=== PATIENT | male | born 1960 | race Caucasian/White ===

== ENCOUNTER 2016-09-09 13:00 | Inpatient (IN) | payer MEDICAID ==
[~2016-09-09] VITALS: Ht 177.8 cm; Wt 139.3 kg
[2016-09-09 14:36] LABS: Basophils # (auto) 0.1 uL; Basophils % (auto) 0.8 % (0.0-2.0); Eosinophils # (auto) 0.4 uL; Eosinophils % (auto) 3.6 % (0.0-7.0); Hematocrit 50.4 % (41.0-53.0); Hemoglobin 16.8 g/dL (13.5-17.5); Lymphocytes # (auto) 2.4 uL; Lymphocytes % (auto) 19.2 % (10.0-50.0); Mean Corpuscular Hemoglobin 28.7 pg (28.0-32.0); Mean Corpuscular Hgb Conc. 33.3 g/dL (32.0-36.0); Mean Corpuscular Volume 86.1 fL (80.0-100.0); Mean Platelet Volume 8.1 fL (7.4-10.4); Monocytes # (auto) 0.8 uL; Monocytes % (auto) 6.8 % (0.0-12.0); Neutrophils # (auto) 8.5 uL; Neutrophils % (auto) 69.6 % (37.0-80.0); Platelet Count (auto) 306 10^3/uL (140-450); Red Cell Distribution Width 13.5 % (11.6-16.0); White Blood Cell 12.3 10^3/uL (4.4-10.8)
[2016-09-09 14:48] LABS: Albumin 3.6 g/dL (3.4-5.0); Alkaline Phosphatase 74 U/L (45-117); Anion Gap 13 (5-15); Aspartate Aminotransferase 24 U/L (15-37); BUN/Creatinine Ratio 10.3; Bilirubin, Total 0.6 mg/dL (0.2-1.0); Blood Urea Nitrogen 12 mg/dL (7-18); Calcium 8.8 mg/dL (8.5-10.1); Carbon Dioxide 20 mmol/L (21-32); Chloride 110 mmol/L (98-107); GFR African American 84 mL/min; GFR Non-African American 69 mL/min; Glucose 84 mg/dL (74-106); Magnesium 2.4 mg/dL (1.6-2.6); Potassium 4.1 mmol/L (3.5-5.1); Sodium 143 mmol/L (136-145); Total Protein 7.5 g/dL (6.4-8.2)
[2016-09-09] MEDS ORDERED: IOHEXOL 350 MG/ML 100ML IJ ONE (15:59)
[2016-09-09] MEDS ORDERED: LORazepam 0.5 MG TAB PO PRN (16:45)
[2016-09-09] MEDS ORDERED: MORPHINE SULF INJ 2 MG/ML SYRINGE 1ML IV PRN ×2 (16:45)
[2016-09-09] MEDS ORDERED: TEMAZEPAM 15 MG CAP PO PRN (16:45)
[2016-09-09] MEDS ORDERED: ENOXAPARIN SOD 100 MG/1 ML SYRINGE SC ONE (16:45)
[2016-09-09] MEDS ORDERED: ACETAMINOPHEN 500 MG TAB PO PRN (16:45)
[2016-09-09] MEDS ORDERED: NITROGLYCERIN 0.4 MG SL TAB SL PRN (16:45)
[2016-09-09] MEDS ORDERED: PROMETHAZINE HCL 25 MG/ML 1ML IV PRN (16:45)
[2016-09-09] MEDS ORDERED: LACTULOSE 20Gm/30ML SOLN PO PRN (16:45)
[2016-09-09 17:01] LABS: B-Type Natriuretic Peptide 25.77 pg/mL (0-100)
[2016-09-09 17:10] LABS: Temperature: 22.9 C (20.0-25.0)
[2016-09-09 17:30] LABS: INR 1.12 (0.9-1.15); Partial Thromboplastin Time 27.5 sec (22.64-33.71); Prothrombin Time 11.5 sec (9.37-12.3)
[2016-09-09] MEDS: PANTOPRAZOLE 40 MG TAB PO SCH (17:37)
[2016-09-09] MEDS ORDERED: WARFARIN SODIUM 10 MG TAB PO ONE (18:45)
[2016-09-09] MEDS ORDERED: WARFARIN SODIUM 5 MG TAB PO ONE (18:45)
[2016-09-09] MEDS: ENOXAPARIN SOD 120 MG/0.8 ML SYRINGE SC SCH (21:32)
[2016-09-09] MEDS ORDERED: INFLUENZA QUAD 2016-2017 0.5 ML SYRG IM ONE (22:00)
[2016-09-09] MEDS ORDERED: PNEUMOCOCCAL VACC POLYS 25 MCG/0.5 ML VIAL IM ONE (22:00)
[2016-09-09 23:56] VITALS: BP 137/80
[2016-09-10 05:45] VITALS: BP 136/76
[2016-09-10 07:04] LABS: Basophils # (auto) 0.1 uL; Basophils % (auto) 0.7 % (0.0-2.0); Eosinophils # (auto) 0.4 uL; Eosinophils % (auto) 4.7 % (0.0-7.0); Hematocrit 44.3 % (41.0-53.0); Hemoglobin 14.7 g/dL (13.5-17.5); Lymphocytes # (auto) 2.2 uL; Lymphocytes % (auto) 23.7 % (10.0-50.0); Mean Corpuscular Hemoglobin 28.4 pg (28.0-32.0); Mean Corpuscular Hgb Conc. 33.3 g/dL (32.0-36.0); Mean Corpuscular Volume 85.3 fL (80.0-100.0); Mean Platelet Volume 8.1 fL (7.4-10.4); Monocytes # (auto) 0.7 uL; Monocytes % (auto) 7.4 % (0.0-12.0); Neutrophils % (auto) 63.5 % (37.0-80.0); Platelet Count (auto) 301 10^3/uL (140-450); Red Cell Distribution Width 13.3 % (11.6-16.0); White Blood Cell 9.4 10^3/uL (4.4-10.8)
[2016-09-10 07:11] LABS: INR 1.14 (0.9-1.15); Prothrombin Time 11.7 sec (9.37-12.3)
[2016-09-10 07:22] LABS: BUN/Creatinine Ratio 11.4; Calcium 8.3 mg/dL (8.5-10.1); Potassium 4.3 mmol/L (3.5-5.1)
[2016-09-10 08:58] VITALS: BP 147/78
[2016-09-10] MEDS: ENOXAPARIN SOD 120 MG/0.8 ML SYRINGE SC SCH ×2 (11:45→21:39)
[2016-09-10] MEDS: PANTOPRAZOLE 40 MG TAB PO SCH (11:46)
[2016-09-10] MEDS: HYDROcodone-ACET 5/325MG TAB PO PRN (11:46)
[2016-09-10 12:58] VITALS: BP 153/87
[2016-09-10 17:00] VITALS: BP 139/58
[2016-09-10] MEDS ORDERED: WARFARIN SODIUM 10 MG TAB PO ONE (17:00)
[2016-09-10 22:00] VITALS: BP 152/82
[2016-09-11 05:27] VITALS: BP 138/81
[2016-09-11 06:18] LABS: Basophils # (auto) 0.1 uL; Basophils % (auto) 0.6 % (0.0-2.0); Eosinophils # (auto) 0.5 uL; Eosinophils % (auto) 4.7 % (0.0-7.0); Hemoglobin 14.6 g/dL (13.5-17.5); Lymphocytes # (auto) 1.8 uL; Lymphocytes % (auto) 18.2 % (10.0-50.0); Mean Corpuscular Hemoglobin 28.3 pg (28.0-32.0); Mean Corpuscular Hgb Conc. 33.1 g/dL (32.0-36.0); Mean Corpuscular Volume 85.4 fL (80.0-100.0); Mean Platelet Volume 7.7 fL (7.4-10.4); Monocytes # (auto) 0.7 uL; Monocytes % (auto) 7.6 % (0.0-12.0); Neutrophils # (auto) 6.8 uL; Neutrophils % (auto) 68.9 % (37.0-80.0); Platelet Count (auto) 293 10^3/uL (140-450); Red Cell Distribution Width 13.3 % (11.6-16.0); White Blood Cell 9.8 10^3/uL (4.4-10.8)
[2016-09-11 06:36] LABS: Calcium 7.9 mg/dL (8.5-10.1)
[2016-09-11 06:40] LABS: Albumin 3.1 g/dL (3.4-5.0); BUN/Creatinine Ratio 13.6
[2016-09-11 06:42] LABS: Bilirubin, Total 0.4 mg/dL (0.2-1.0); Total Protein 6.5 g/dL (6.4-8.2)
[2016-09-11 06:46] LABS: Partial Thromboplastin Time 32.9 sec (22.64-33.71)
[2016-09-11 06:51] LABS: INR 1.23 (0.9-1.15); Prothrombin Time 12.7 sec (9.37-12.3)
[2016-09-11 09:00] VITALS: BP 114/70
[2016-09-11] MEDS: ENOXAPARIN SOD 120 MG/0.8 ML SYRINGE SC SCH ×2 (09:46→21:48)
[2016-09-11] MEDS: PANTOPRAZOLE 40 MG TAB PO SCH (09:46)
[2016-09-11 13:00] VITALS: BP 132/83
[2016-09-11 17:00] VITALS: BP 153/80
[2016-09-11] MEDS ORDERED: WARFARIN SODIUM 10 MG TAB PO ONE (17:00)
[2016-09-11] MEDS: HYDROcodone-ACET 5/325MG TAB PO PRN (18:15)
[2016-09-11 22:00] VITALS: BP 143/88
[2016-09-12 05:00] VITALS: BP 135/78
[2016-09-12 06:25] LABS: Partial Thromboplastin Time 37.1 sec (22.64-33.71)
[2016-09-12 06:41] LABS: INR 1.53 (0.9-1.15); Prothrombin Time 15.8 sec (9.37-12.3)
[2016-09-12 09:00] VITALS: BP 164/86
[2016-09-12] MEDS: PANTOPRAZOLE 40 MG TAB PO SCH (10:51)
[2016-09-12] MEDS: ENOXAPARIN SOD 120 MG/0.8 ML SYRINGE SC SCH (10:51)
[2016-09-12 11:28] VITALS: BP 127/80
[2016-09-12] MEDS ORDERED: WARFARIN SODIUM 2.5 MG TAB PO ONE (17:00)
== END 2016-09-12 13:00 | disposition home or self-care (01) | DRG 134 ==
LOC: ER 13:01 → TELE 13:02 → TELE-E-ADS 18:33 → TELE-EAST 19:24
PROVIDERS: ADMIT Internal Medicine; ATTEND Internal Medicine
DX: I26.99 Other pulmonary embolism without acute cor pulmonale (principal); I27.2 Other secondary pulmonary hypertension; Z68.41 Body mass index [BMI] 40.0-44.9, adult; E44.1 Mild protein-calorie malnutrition; E66.01 Morbid (severe) obesity due to excess calories; I82.432 Acute embolism and thrombosis of left popliteal vein; G47.30 Sleep apnea, unspecified; Z87.01 Personal history of pneumonia (recurrent); Z82.49 Family history of ischemic heart disease and other diseases of the circulatory system; Z83.3 Family history of diabetes mellitus; Z90.2 Acquired absence of lung [part of]; Z84.89 Family history of other specified conditions
CPT/HCPCS: 36415; 36600; 71020; 71275; 80048; 80053; 80061; 81241; 82805; 83735; 83880; 84484; 85025; 85379; 85610; 85613; 85670; 85705; 85730; 85732; 93005; 93971; 96372; 99291

== ENCOUNTER 2016-10-10 14:13 | Emergency (ER) | payer MEDICAID ==
[~2016-10-10] VITALS: Ht 177.8 cm; Wt 139.3 kg
[2016-10-10 15:02] LABS: Basophils # (auto) 0.1 uL; Basophils % (auto) 0.7 % (0.0-2.0); Eosinophils # (auto) 0.6 uL; Eosinophils % (auto) 6.3 % (0.0-7.0); Hematocrit 49.7 % (41.0-53.0); Hemoglobin 16.4 g/dL (13.5-17.5); Lymphocytes # (auto) 2.6 uL; Lymphocytes % (auto) 28.8 % (10.0-50.0); Mean Corpuscular Hemoglobin 28.2 pg (28.0-32.0); Mean Corpuscular Volume 85.3 fL (80.0-100.0); Mean Platelet Volume 7.7 fL (7.4-10.4); Monocytes # (auto) 0.7 uL; Monocytes % (auto) 7.3 % (0.0-12.0); Neutrophils # (auto) 5.2 uL; Neutrophils % (auto) 56.9 % (37.0-80.0); Platelet Count (auto) 339 10^3/uL (140-450); Red Cell Distribution Width 13.8 % (11.6-16.0); White Blood Cell 9.2 10^3/uL (4.4-10.8)
[2016-10-10 15:24] LABS: Albumin 3.8 g/dL (3.4-5.0); Anion Gap 8 (5-15); Aspartate Aminotransferase 24 U/L (15-37); BUN/Creatinine Ratio 12.5; Blood Urea Nitrogen 13 mg/dL (7-18); Calcium 8.8 mg/dL (8.5-10.1); Carbon Dioxide 27 mmol/L (21-32); Chloride 107 mmol/L (98-107); GFR African American 96 mL/min; GFR Non-African American 79 mL/min; Glucose 84 mg/dL (74-106); Potassium 4.4 mmol/L (3.5-5.1); Sodium 142 mmol/L (136-145)
[2016-10-10 15:30] LABS: Alkaline Phosphatase 64 U/L (45-117); Bilirubin, Total 0.5 mg/dL (0.2-1.0); Total Protein 7.5 g/dL (6.4-8.2)
[2016-10-10 16:00] LABS: Partial Thromboplastin Time 32.1 sec (22.64-33.71)
[2016-10-10 16:14] LABS: INR 1.48 (0.9-1.15)
[2016-10-10 20:20] LABS: Urine Bilirubin Negative (Negative); Urine Blood Negative /uL (Negative); Urine Color Yellow (Yellow); Urine Glucose Normal (Normal); Urine Ketone Negative (Negative); Urine Mucus FEW (None Seen); Urine Nitrite Negative (Negative); Urine RBC <1 /hpf (0 - 3); Urine Squamous Epithelial Cell FEW /hpf (<5); Urine Urobilinogen Normal (Negative)
[2016-10-11 00:20] VITALS: BP 137/95
[2016-10-11] MEDS ORDERED: WARFARIN SODIUM 5 MG TAB PO ONE ×2 (01:15→17:00)
== END 2016-10-11 01:08 | disposition home or self-care (01) ==
LOC: ER 14:13
DX: I82.402 Acute embolism and thrombosis of unspecified deep veins of left lower extremity (principal); R79.1 Abnormal coagulation profile; Z86.711 Personal history of pulmonary embolism; I10 Essential (primary) hypertension
CPT/HCPCS: 36415; 80053; 81001; 84484; 85025; 85379; 85610; 85730; 93970

== ENCOUNTER 2017-09-20 07:26 | Inpatient (IN) | payer MEDICAID ==
[~2017-09-20] VITALS: Ht 177.8 cm; Wt 150.0 kg
[2017-09-20 08:57] LABS: Basophils # (auto) 0.1 uL; Eosinophils # (auto) 0.3 uL; Eosinophils % (auto) 4.1 % (0.0-7.0); Hematocrit 46.7 % (41.0-53.0); Hemoglobin 15.3 g/dL (13.5-17.5); Lymphocytes # (auto) 1.7 uL; Lymphocytes % (auto) 21.4 % (10.0-50.0); Mean Corpuscular Hemoglobin 28.7 pg (28.0-32.0); Mean Corpuscular Hgb Conc. 32.8 g/dL (32.0-36.0); Mean Corpuscular Volume 87.7 fL (80.0-100.0); Monocytes # (auto) 0.4 uL; Monocytes % (auto) 5.7 % (0.0-12.0); Neutrophils # (auto) 5.2 uL; Neutrophils % (auto) 67.8 % (37.0-80.0); Platelet Count (auto) 304 10^3/uL (140-450); Red Blood Cells 5.33 10^6/uL (4.5-5.90); White Blood Cell 7.7 10^3/uL (4.4-10.8)
[2017-09-20 09:10] LABS: Partial Thromboplastin Time 28.2 sec (22.64-33.71); Prothrombin Time 10.9 sec (9.37-12.3)
[2017-09-20 09:20] LABS: Alanine Aminotransferase 27 U/L (16-61); Albumin 3.4 g/dL (3.4-5.0); Alkaline Phosphatase 56 U/L (45-117); Anion Gap 4 (5-15); Aspartate Aminotransferase 20 U/L (15-37); BUN/Creatinine Ratio 13.8; Bilirubin, Total 0.3 mg/dL (0.2-1.0); Blood Urea Nitrogen 15 mg/dL (7-18); Calcium 8.2 mg/dL (8.5-10.1); Carbon Dioxide 28 mmol/L (21-32); Chloride 110 mmol/L (98-107); GFR African American 90 mL/min; GFR Non-African American 75 mL/min; Glucose 109 mg/dL (74-106); Potassium 4.7 mmol/L (3.5-5.1); Sodium 142 mmol/L (136-145); Total Protein 6.7 g/dL (6.4-8.2)
[2017-09-20] MEDS ORDERED: ENOXAPARIN SOD 60 MG/0.6 ML SYRINGE SC ONE (11:00)
[2017-09-20] MEDS ORDERED: ONDANSETRON HCL 4 MG/2 ML VIAL IV ONE (11:15)
[2017-09-20] MEDS ORDERED: NALBUPHINE HCL 10 MG/1ml INJECTION IV ONE (11:15)
[2017-09-20] MEDS ORDERED: NITROGLYCERIN 0.4 MG SL TAB SL PRN (12:00)
[2017-09-20] MEDS ORDERED: MORPHINE SULFATE 4 MG/ML SYR/VIAL IV PRN ×2 (12:00)
[2017-09-20] MEDS ORDERED: DOCUSATE SOD 100 MG CAP PO PRN (12:00)
[2017-09-20] MEDS ORDERED: ENOXAPARIN SOD 80 MG/0.8ML SYRINGE SC ONE (12:00)
[2017-09-20] MEDS ORDERED: ONDANSETRON HCL 4 MG/2 ML VIAL IV PRN (12:00)
[2017-09-20] MEDS ORDERED: RIVAROXABAN 20 MG TAB PO SCH (12:15)
[2017-09-20] MEDS: ALBUTEROL SULF 2.5 MG/0.5ML(0.5%) NEB SOLN NEB SCH ×2 (12:25→19:03)
[2017-09-20] MEDS: FAMOTIDINE 20 MG TAB PO SCH ×2 (12:43→21:41)
[2017-09-20 12:47] VITALS: BP 155/76
[2017-09-20] MEDS ORDERED: RIVA20TA PO (13:21)
[2017-09-20] MEDS ORDERED: HYDR12.56 PO (13:21)
[2017-09-20] MEDS: SODIUM CHLOR 0.9% PF (SALINE LOCK) 10ML VIAL IV SCH ×2 (13:45→21:41)
[2017-09-20] MEDS ORDERED: HEPARIN IN NS 1000U/500ML (2UNIT/ML) 500 ML BAG/KIT IV SCH (14:30)
[2017-09-20] MEDS: HEPARIN DRIP/D5W 100UNITS/ML 250 ML IV SCH (16:44)
[2017-09-20] MEDS: HYDROcodone-ACET 5/325MG TAB PO PRN (16:49)
[2017-09-20 20:00] VITALS: BP 119/75
[2017-09-20 22:00] VITALS: BP 119/75
[2017-09-20] MEDS ORDERED: ENOXAPARIN SOD 150 MG/1 ML SYRINGE SC SCH (22:00)
[2017-09-20 22:12] LABS: INR 1.08 (0.9-1.15); Partial Thromboplastin Time 37.7 sec (22.64-33.71); Prothrombin Time 11.8 sec (9.37-12.3)
[2017-09-21] MEDS: ALBUTEROL SULF 2.5 MG/0.5ML(0.5%) NEB SOLN NEB SCH ×4 (00:46→19:11)
[2017-09-21] MEDS: HYDROcodone-ACET 5/325MG TAB PO PRN ×3 (01:01→15:23)
[2017-09-21 05:00] VITALS: BP 138/77
[2017-09-21] MEDS: SODIUM CHLOR 0.9% PF (SALINE LOCK) 10ML VIAL IV SCH ×3 (06:00→21:21)
[2017-09-21 07:12] LABS: Basophils # (auto) 0.1 uL; Basophils % (auto) 0.8 % (0.0-2.0); Eosinophils # (auto) 0.3 uL; Eosinophils % (auto) 3.4 % (0.0-7.0); Hematocrit 43.9 % (41.0-53.0); Hemoglobin 14.7 g/dL (13.5-17.5); Lymphocytes # (auto) 1.7 uL; Lymphocytes % (auto) 20.6 % (10.0-50.0); Mean Corpuscular Hemoglobin 29.5 pg (28.0-32.0); Mean Corpuscular Hgb Conc. 33.6 g/dL (32.0-36.0); Mean Corpuscular Volume 87.8 fL (80.0-100.0); Monocytes # (auto) 0.4 uL; Monocytes % (auto) 5.1 % (0.0-12.0); Neutrophils # (auto) 5.9 uL; Neutrophils % (auto) 70.1 % (37.0-80.0); Nucleated Red Blood Cells % 0.1 %; Platelet Count (auto) 292 10^3/uL (140-450); Red Cell Distribution Width 13.8 % (11.8-14.3); White Blood Cell 8.5 10^3/uL (4.4-10.8)
[2017-09-21 07:16] LABS: INR 1.04 (0.9-1.15); Prothrombin Time 11.3 sec (9.37-12.3)
[2017-09-21 07:23] LABS: Albumin 3.3 g/dL (3.4-5.0); BUN/Creatinine Ratio 14.3; Bilirubin, Total 0.8 mg/dL (0.2-1.0); Calcium 8.2 mg/dL (8.5-10.1); Potassium 4.2 mmol/L (3.5-5.1); Total Protein 6.6 g/dL (6.4-8.2)
[2017-09-21 08:39] VITALS: BP 102/68
[2017-09-21] MEDS ORDERED: PATIENTS OWN MEDICATION PO SCH (10:00)
[2017-09-21] MEDS: FAMOTIDINE 20 MG TAB PO SCH ×2 (10:09→21:21)
[2017-09-21] MEDS: HCTZ 25 MG TAB PO SCH (10:11)
[2017-09-21] MEDS: MULTIPLE VITAMIN TAB PO SCH (10:12)
[2017-09-21 13:04] VITALS: BP 135/79
[2017-09-21] MEDS: HEPARIN DRIP/D5W 100UNITS/ML 250 ML IV SCH ×2 (15:35→16:31)
[2017-09-21 15:36] LABS: INR 0.99 (0.9-1.15); Partial Thromboplastin Time 27.9 sec (22.64-33.71); Prothrombin Time 10.8 sec (9.37-12.3)
[2017-09-21] MEDS ORDERED: HEPARIN SODIUM (PORCINE) 5000 UNITS/ML 1ML VIAL IV ONE (16:15)
[2017-09-21 16:57] VITALS: BP 147/78
[2017-09-21 20:00] VITALS: BP 136/78
[2017-09-21 22:00] VITALS: BP 136/78
[2017-09-21 23:01] LABS: Partial Thromboplastin Time 40.1 sec (22.64-33.71); Prothrombin Time 10.9 sec (9.37-12.3)
[2017-09-21] MEDS ORDERED: SOTALOL HCL 80 MG TAB PO ONE (23:45)
[2017-09-21] MEDS ORDERED: SOTALOL HCL 80 MG TAB ONE (23:55)
[2017-09-22 06:00] VITALS: BP 111/80
[2017-09-22] MEDS: SODIUM CHLOR 0.9% PF (SALINE LOCK) 10ML VIAL IV SCH ×3 (06:38→21:29)
[2017-09-22] MEDS: ALBUTEROL SULF 2.5 MG/0.5ML(0.5%) NEB SOLN NEB SCH ×5 (06:49→23:43)
[2017-09-22 07:38] LABS: Basophils # (auto) 0.1 uL; Basophils % (auto) 0.8 % (0.0-2.0); Eosinophils # (auto) 0.3 uL; Eosinophils % (auto) 3.1 % (0.0-7.0); Hematocrit 47.5 % (41.0-53.0); Hemoglobin 16.1 g/dL (13.5-17.5); Lymphocytes # (auto) 1.7 uL; Mean Corpuscular Hemoglobin 29.8 pg (28.0-32.0); Mean Corpuscular Hgb Conc. 33.9 g/dL (32.0-36.0); Mean Corpuscular Volume 87.7 fL (80.0-100.0); Monocytes # (auto) 0.6 uL; Neutrophils % (auto) 72.1 % (37.0-80.0); Platelet Count (auto) 333 10^3/uL (140-450); Red Blood Cells 5.42 10^6/uL (4.5-5.90); Red Cell Distribution Width 14.1 % (11.8-14.3); White Blood Cell 9.6 10^3/uL (4.4-10.8)
[2017-09-22] MEDS: ENOXAPARIN SOD 100 MG/1 ML SYRINGE SC SCH ×2 (07:52→20:41)
[2017-09-22 07:53] LABS: INR 0.99 (0.9-1.15); Partial Thromboplastin Time 33.6 sec (22.64-33.71); Prothrombin Time 10.8 sec (9.37-12.3)
[2017-09-22] MEDS: ACETAMINOPHEN 325 MG TAB PO PRN ×4 (07:56→22:56)
[2017-09-22 08:10] LABS: Albumin 3.4 g/dL (3.4-5.0); BUN/Creatinine Ratio 11.5; Bilirubin, Total 0.7 mg/dL (0.2-1.0); Calcium 8.4 mg/dL (8.5-10.1); Potassium 4.8 mmol/L (3.5-5.1); Total Protein 6.9 g/dL (6.4-8.2)
[2017-09-22] MEDS ORDERED: HEPARIN SODIUM (PORCINE) 5000 UNITS/ML 1ML VIAL IV ONE (08:45)
[2017-09-22 09:00] VITALS: BP 102/54
[2017-09-22] MEDS: FAMOTIDINE 20 MG TAB PO SCH ×2 (09:10→21:29)
[2017-09-22] MEDS: SOTALOL HCL 80 MG TAB PO SCH ×2 (09:11→21:29)
[2017-09-22] MEDS: MULTIPLE VITAMIN TAB PO SCH (09:12)
[2017-09-22] MEDS: HCTZ 25 MG TAB PO SCH (09:12)
[2017-09-22] MEDS: HEPARIN DRIP/D5W 100UNITS/ML 250 ML IV SCH (09:19)
[2017-09-22 13:00] VITALS: BP 115/68
[2017-09-22 17:00] VITALS: BP 140/86
[2017-09-22 20:00] VITALS: BP 128/74
[2017-09-22 22:00] VITALS: BP 128/74
[2017-09-23] VITALS (7 sets, daily range): BP systolic 102–142; BP diastolic 56–78
[2017-09-23] MEDS: HEPARIN DRIP/D5W 100UNITS/ML 250 ML IV SCH ×3 (01:50→20:26)
[2017-09-23] MEDS: ACETAMINOPHEN 325 MG TAB PO PRN (03:24)
[2017-09-23 03:38] LABS: INR 1.02 (0.9-1.15); Prothrombin Time 11.1 sec (9.37-12.3)
[2017-09-23] MEDS: SODIUM CHLOR 0.9% PF (SALINE LOCK) 10ML VIAL IV SCH ×3 (06:10→22:09)
[2017-09-23] MEDS: ALBUTEROL SULF 2.5 MG/0.5ML(0.5%) NEB SOLN NEB SCH ×3 (07:09→20:09)
[2017-09-23] MEDS: HYDROcodone-ACET 5/325MG TAB PO PRN ×3 (07:57→18:18)
[2017-09-23] MEDS: SOTALOL HCL 80 MG TAB PO SCH ×2 (10:00→22:09)
[2017-09-23] MEDS: FAMOTIDINE 20 MG TAB PO SCH ×2 (10:17→22:10)
[2017-09-23] MEDS: MULTIPLE VITAMIN TAB PO SCH (10:18)
[2017-09-23] MEDS: HCTZ 25 MG TAB PO SCH (10:18)
[2017-09-24] VITALS (34 sets, daily range): BP systolic 109–193; BP diastolic 66–126
[2017-09-24] MEDS: HYDROcodone-ACET 5/325MG TAB PO PRN ×4 (03:12→17:42)
[2017-09-24 03:43] LABS: INR 1.02 (0.9-1.15); Partial Thromboplastin Time 49.7 sec (22.64-33.71); Prothrombin Time 11.1 sec (9.37-12.3)
[2017-09-24] MEDS: SODIUM CHLOR 0.9% PF (SALINE LOCK) 10ML VIAL IV SCH ×3 (05:39→22:02)
[2017-09-24] MEDS: HEPARIN DRIP/D5W 100UNITS/ML 250 ML IV SCH ×3 (06:01→19:52)
[2017-09-24] MEDS: ALBUTEROL SULF 2.5 MG/0.5ML(0.5%) NEB SOLN NEB SCH ×4 (06:27→22:06)
[2017-09-24] MEDS: SOTALOL HCL 80 MG TAB PO SCH ×2 (10:00→22:02)
[2017-09-24] MEDS: HCTZ 25 MG TAB PO SCH (10:17)
[2017-09-24] MEDS: FAMOTIDINE 20 MG TAB PO SCH ×2 (10:20→22:02)
[2017-09-24] MEDS: MULTIPLE VITAMIN TAB PO SCH (10:21)
[2017-09-24 15:12] LABS: INR 1.02 (0.9-1.15); Partial Thromboplastin Time 60.7 sec (22.64-33.71); Prothrombin Time 11.1 sec (9.37-12.3)
[2017-09-24] MEDS ORDERED: ALTEPLASE (RECOMBINANT) 100 MG in STERILE WATER 100 ML IV ONE (18:00)
[2017-09-24] MEDS: TEMAZEPAM 15 MG CAP PO PRN (22:06)
[2017-09-25] VITALS (48 sets, daily range): BP systolic 103–170; BP diastolic 51–109
[2017-09-25] MEDS: SODIUM CHLOR 0.9% PF (SALINE LOCK) 10ML VIAL IV SCH ×3 (03:59→22:17)
[2017-09-25] MEDS: HYDROcodone-ACET 5/325MG TAB PO PRN ×3 (04:29→20:24)
[2017-09-25 05:59] LABS: Basophils # (auto) 0.1 uL; Basophils % (auto) 0.6 % (0.0-2.0); Eosinophils # (auto) 0.7 uL; Hematocrit 50.4 % (41.0-53.0); Hemoglobin 16.7 g/dL (13.5-17.5); Lymphocytes # (auto) 2.6 uL; Lymphocytes % (auto) 27.1 % (10.0-50.0); Mean Corpuscular Hemoglobin 29.2 pg (28.0-32.0); Mean Corpuscular Hgb Conc. 33.1 g/dL (32.0-36.0); Mean Corpuscular Volume 88.3 fL (80.0-100.0); Monocytes # (auto) 0.7 uL; Monocytes % (auto) 7.2 % (0.0-12.0); Neutrophils # (auto) 5.7 uL; Neutrophils % (auto) 58.1 % (37.0-80.0); Nucleated Red Blood Cells % 0.2 %; Platelet Count (auto) 338 10^3/uL (140-450); Red Blood Cells 5.71 10^6/uL (4.5-5.90); Red Cell Distribution Width 13.9 % (11.8-14.3); White Blood Cell 9.8 10^3/uL (4.4-10.8)
[2017-09-25 06:05] LABS: INR 1.03 (0.9-1.15); Prothrombin Time 11.2 sec (9.37-12.3)
[2017-09-25] MEDS: ALBUTEROL SULF 2.5 MG/0.5ML(0.5%) NEB SOLN NEB SCH ×3 (06:06→18:45)
[2017-09-25 06:11] LABS: Potassium 4.3 mmol/L (3.5-5.1)
[2017-09-25 06:18] LABS: Albumin 3.6 g/dL (3.4-5.0); Calcium 9.3 mg/dL (8.5-10.1)
[2017-09-25 06:20] LABS: Bilirubin, Total 0.5 mg/dL (0.2-1.0); Total Protein 7.2 g/dL (6.4-8.2)
[2017-09-25] MEDS: HEPARIN DRIP/D5W 100UNITS/ML 250 ML IV SCH ×2 (08:48→20:16)
[2017-09-25] MEDS: FAMOTIDINE 20 MG TAB PO SCH ×2 (09:57→22:29)
[2017-09-25] MEDS: MULTIPLE VITAMIN TAB PO SCH (09:57)
[2017-09-25] MEDS: SOTALOL HCL 80 MG TAB PO SCH ×2 (09:59→22:32)
[2017-09-25] MEDS: HCTZ 25 MG TAB PO SCH (09:59)
[2017-09-25 10:48] LABS: INR 1.05 (0.9-1.15); Partial Thromboplastin Time 67.8 sec (22.64-33.71); Prothrombin Time 11.5 sec (9.37-12.3)
[2017-09-25 18:52] LABS: INR 1.05 (0.9-1.15); Partial Thromboplastin Time 57.7 sec (22.64-33.71); Prothrombin Time 11.4 sec (9.37-12.3)
[2017-09-25] MEDS: TEMAZEPAM 15 MG CAP PO PRN (22:30)
[2017-09-26] VITALS (22 sets, daily range): BP systolic 121–145; BP diastolic 44–108
[2017-09-26] MEDS: ACETAMINOPHEN 325 MG TAB PO PRN (04:09)
[2017-09-26 04:46] LABS: Basophils # (auto) 0.1 uL; Basophils % (auto) 1.1 % (0.0-2.0); Eosinophils # (auto) 0.8 uL; Eosinophils % (auto) 7.3 % (0.0-7.0); Hematocrit 49.9 % (41.0-53.0); Hemoglobin 16.6 g/dL (13.5-17.5); Lymphocytes # (auto) 2.8 uL; Lymphocytes % (auto) 26.4 % (10.0-50.0); Mean Corpuscular Hemoglobin 29.3 pg (28.0-32.0); Mean Corpuscular Hgb Conc. 33.3 g/dL (32.0-36.0); Mean Corpuscular Volume 87.9 fL (80.0-100.0); Monocytes # (auto) 0.7 uL; Monocytes % (auto) 6.7 % (0.0-12.0); Neutrophils # (auto) 6.3 uL; Neutrophils % (auto) 58.5 % (37.0-80.0); Nucleated Red Blood Cells % 0.1 %; Platelet Count (auto) 344 10^3/uL (140-450); Red Blood Cells 5.67 10^6/uL (4.5-5.90); Red Cell Distribution Width 13.9 % (11.8-14.3); White Blood Cell 10.7 10^3/uL (4.4-10.8)
[2017-09-26 04:53] LABS: Albumin 3.5 g/dL (3.4-5.0); BUN/Creatinine Ratio 18.3; Calcium 8.6 mg/dL (8.5-10.1); Potassium 4.3 mmol/L (3.5-5.1)
[2017-09-26 04:55] LABS: Bilirubin, Total 0.6 mg/dL (0.2-1.0); Total Protein 7.2 g/dL (6.4-8.2)
[2017-09-26 05:17] LABS: INR 1.03 (0.9-1.15); Prothrombin Time 11.2 sec (9.37-12.3)
[2017-09-26 05:27] LABS: Partial Thromboplastin Time 84.6 sec (22.64-33.71)
[2017-09-26] MEDS: SODIUM CHLOR 0.9% PF (SALINE LOCK) 10ML VIAL IV SCH (05:51)
[2017-09-26] MEDS: HEPARIN DRIP/D5W 100UNITS/ML 250 ML IV SCH (06:11)
[2017-09-26] MEDS: ALBUTEROL SULF 2.5 MG/0.5ML(0.5%) NEB SOLN NEB SCH ×2 (06:42)
[2017-09-26] MEDS: HYDROcodone-ACET 5/325MG TAB PO PRN (08:59)
[2017-09-26] MEDS: FAMOTIDINE 20 MG TAB PO SCH (10:00)
[2017-09-26] MEDS: SOTALOL HCL 80 MG TAB PO SCH (10:50)
[2017-09-26] MEDS: HCTZ 25 MG TAB PO SCH (10:51)
[2017-09-26] MEDS: MULTIPLE VITAMIN TAB PO SCH (10:51)
[2017-09-26 11:47] LABS: INR 1.02 (0.9-1.15); Partial Thromboplastin Time 38.2 sec (22.64-33.71); Prothrombin Time 11.1 sec (9.37-12.3)
[2017-09-26] MEDS ORDERED: RIVAROXABAN 20 MG TAB PO SCH (12:15)
== END 2017-09-26 13:00 | disposition home or self-care (01) | DRG 197 ==
LOC: ER 07:26 → TELE 07:27 → TELE-WESTW 15:30 → ICU WEST 09-24 17:34
PROVIDERS: ADMIT Internal Medicine; ATTEND Internal Medicine
DX: I82.B11 Acute embolism and thrombosis of right subclavian vein (principal); D68.59 Other primary thrombophilia; E83.51 Hypocalcemia; Z68.42 Body mass index [BMI] 45.0-49.9, adult; E66.9 Obesity, unspecified; I12.9 Hypertensive chronic kidney disease with stage 1 through stage 4 chronic kidney disease, or unspecified chronic kidney disease; N18.9 Chronic kidney disease, unspecified; I48.91 Unspecified atrial fibrillation; J45.909 Unspecified asthma, uncomplicated; M79.89 Other specified soft tissue disorders; R63.4 Abnormal weight loss; Z86.711 Personal history of pulmonary embolism; Z83.3 Family history of diabetes mellitus; Z86.718 Personal history of other venous thrombosis and embolism; Z87.01 Personal history of pneumonia (recurrent)
CPT/HCPCS: 36415; 71046; 80053; 83605; 83880; 84484; 85025; 85610; 85730; 87040; 87081; 93005; 93971; 94640; 94660; 94761; 96372; 96374; 96375; J2405

== ENCOUNTER 2018-09-03 06:58 | Emergency (ER) | payer MEDICAID ==
[~2018-09-03] VITALS: Ht 177.8 cm; Wt 138.8 kg
[~2018-09-03 06:58] MED LIST: HYDR12.56 PO; RIVA20TA PO
[2018-09-03 07:07] VITALS: BP 156/93
== END 2018-09-03 08:22 | disposition home or self-care (01) ==
LOC: ER 06:58
DX: S00.451A Superficial foreign body of right ear, initial encounter (principal); I10 Essential (primary) hypertension; X58.XXXA Exposure to other specified factors, initial encounter; Y93.89 Activity, other specified; Y99.8 Other external cause status; Y92.89 Other specified places as the place of occurrence of the external cause

== ENCOUNTER 2020-09-05 15:41 | Inpatient (IN) | payer MEDICAID ==
[~2020-09-05] VITALS: Ht 177.8 cm; Wt 130.8 kg
[2020-09-05] VITALS (7 sets, daily range): BP systolic 96–147; BP diastolic 49–78
[2020-09-05] MEDS ORDERED: dilTIAZem 25 MG/5 ML VIAL IV ONE (16:00)
[2020-09-05 16:23] LABS: Basophils # (auto) 0.1 10 ^3/uL (0-0.2); Basophils % (auto) 0.8 % (0.0-2.0); Eosinophils # (auto) 0.3 10 ^3/uL (0-0.8); Eosinophils % (auto) 2.4 % (0.0-7.0); Hematocrit 48.6 % (41.0-53.0); Hemoglobin 16.7 g/dL (13.5-17.5); Lymphocytes # (auto) 2.4 10 ^3/uL (0.4-5.4); Mean Corpuscular Hemoglobin 29.7 pg (28.0-32.0); Mean Corpuscular Hgb Conc. 34.4 g/dL (32.0-36.0); Mean Corpuscular Volume 86.3 fL (80.0-100.0); Monocytes # (auto) 0.7 10 ^3/uL (0-1.3); Monocytes % (auto) 7.1 % (0.0-12.0); Neutrophils % (auto) 66.7 % (37.0-80.0); Nucleated Red Blood Cells % 0.4 %; Red Blood Cells 5.63 10^6/uL (4.5-5.90); Red Cell Distribution Width 13.6 % (11.8-14.3); White Blood Cell 10.4 10^3/uL (4.4-10.8)
[2020-09-05 16:32] LABS: Albumin 3.7 g/dL (3.4-5.0); Calcium 8.8 mg/dL (8.5-10.1)
[2020-09-05 16:36] LABS: BUN/Creatinine Ratio 15.1; Bilirubin, Total 1.1 mg/dL (0.2-1.0); Total Protein 7.4 g/dL (6.4-8.2)
[2020-09-05 16:37] LABS: INR 1.23 (0.9-1.15); Partial Thromboplastin Time 29.2 sec (23.0-31.2)
[2020-09-05] MEDS ORDERED: NITROGLYCERIN 0.4 MG SL TAB SL PRN (17:30)
[2020-09-05] MEDS ORDERED: ACETAMINOPHEN 325 MG TAB PO PRN (17:30)
[2020-09-05] MEDS ORDERED: ONDANSETRON HCL 4 MG/2 ML VIAL IV PRN (17:30)
[2020-09-05] MEDS ORDERED: MORPHINE SULFATE INJECTION 2 MG/ML SYRG IV PRN ×2 (17:30)
[2020-09-05] MEDS ORDERED: PANTOPRAZOLE 40 MG/10 ML VIAL INJ IV ONE (17:45)
[2020-09-05] MEDS: HEPARIN DRIP/D5W 100UNITS/ML 250 ML IV SCH (19:00)
[2020-09-05] MEDS: METOPROLOL TARTRATE 25 MG TAB PO SCH (22:12)
[2020-09-06] VITALS (45 sets, daily range): BP systolic 96–138; BP diastolic 44–88
[2020-09-06] MEDS ORDERED: LISI-275 PO (01:14)
[2020-09-06] MEDS ORDERED: ATOR20TA PO (01:14)
[2020-09-06] MEDS ORDERED: METF-370 PO (01:14)
[2020-09-06 01:58] LABS: INR 1.15 (0.9-1.15)
[2020-09-06 05:44] LABS: Basophils # (auto) 0.1 10 ^3/uL (0-0.2); Basophils % (auto) 0.6 % (0.0-2.0); Eosinophils # (auto) 0.3 10 ^3/uL (0-0.8); Eosinophils % (auto) 3.8 % (0.0-7.0); Hematocrit 45.4 % (41.0-53.0); Hemoglobin 15.6 g/dL (13.5-17.5); Lymphocytes # (auto) 1.9 10 ^3/uL (0.4-5.4); Lymphocytes % (auto) 22.2 % (10.0-50.0); Mean Corpuscular Hemoglobin 29.8 pg (28.0-32.0); Mean Corpuscular Hgb Conc. 34.3 g/dL (32.0-36.0); Mean Corpuscular Volume 86.7 fL (80.0-100.0); Monocytes # (auto) 0.6 10 ^3/uL (0-1.3); Monocytes % (auto) 7.3 % (0.0-12.0); Neutrophils # (auto) 5.8 10 ^3/uL (1.6-8.6); Neutrophils % (auto) 66.1 % (37.0-80.0); Nucleated Red Blood Cells % 0.1 %; Red Blood Cells 5.24 10^6/uL (4.5-5.90); Red Cell Distribution Width 13.3 % (11.8-14.3); White Blood Cell 8.8 10^3/uL (4.4-10.8)
[2020-09-06 06:02] LABS: Calcium 8.3 mg/dL (8.5-10.1); Magnesium 2.3 mg/dL (1.6-2.6); Potassium 3.9 mmol/L (3.5-5.1)
[2020-09-06] MEDS: HEPARIN DRIP/D5W 100UNITS/ML 250 ML IV SCH ×2 (06:02→22:40)
[2020-09-06 06:05] LABS: BUN/Creatinine Ratio 16.5
[2020-09-06 06:07] LABS: INR 1.18 (0.9-1.15)
[2020-09-06 06:54] LABS: Partial Thromboplastin Time 99.1 sec (23.0-31.2)
[2020-09-06] MEDS: PANTOPRAZOLE 40 MG/10 ML VIAL INJ IV SCH (09:12)
[2020-09-06] MEDS: METOPROLOL TARTRATE 25 MG TAB PO SCH ×2 (09:13→22:00)
[2020-09-06] MEDS ORDERED: HYDROcodone-ACET 5/325MG TAB PO PRN (10:45)
[2020-09-06] MEDS ORDERED: DIGOXIN (250MCG/ML) 2 ML AMPULE IV ONE (12:00)
[2020-09-06 14:20] LABS: INR 1.13 (0.9-1.15); Partial Thromboplastin Time 66.1 sec (23.0-31.2)
[2020-09-06] MEDS ORDERED: IODIXANOL 320MG/ML 100ML BTL IV ONE (15:47)
[2020-09-06] MEDS ORDERED: LIDOCAINE 2%HCL (LOCAL ANESTH.) INJ 20ML MDV ONE (15:47)
[2020-09-06] MEDS ORDERED: HEPARIN IN NS 1000Units/500mL 0 ML ONE (15:47)
[2020-09-06] MEDS ORDERED: IOPAMIDOL 76 % (ISOVUE-370) 100ML BTL IV ONE (16:05)
[2020-09-06 20:23] LABS: INR 1.15 (0.9-1.15)
[2020-09-06 20:30] LABS: Partial Thromboplastin Time 79.7 sec (23.0-31.2)
[2020-09-07] VITALS (26 sets, daily range): BP systolic 114–153; BP diastolic 68–92
[2020-09-07 05:10] LABS: INR 1.1 (0.9-1.15); Partial Thromboplastin Time 60.6 sec (23.0-31.2)
[2020-09-07 06:42] LABS: Basophils # (auto) 0.1 10 ^3/uL (0-0.2); Basophils % (auto) 0.9 % (0.0-2.0); Eosinophils # (auto) 0.4 10 ^3/uL (0-0.8); Eosinophils % (auto) 5.3 % (0.0-7.0); Hematocrit 45.9 % (41.0-53.0); Hemoglobin 15.8 g/dL (13.5-17.5); Lymphocytes # (auto) 1.8 10 ^3/uL (0.4-5.4); Mean Corpuscular Hemoglobin 29.9 pg (28.0-32.0); Mean Corpuscular Hgb Conc. 34.4 g/dL (32.0-36.0); Mean Corpuscular Volume 86.7 fL (80.0-100.0); Monocytes # (auto) 0.5 10 ^3/uL (0-1.3); Monocytes % (auto) 7.3 % (0.0-12.0); Neutrophils # (auto) 4.4 10 ^3/uL (1.6-8.6); Neutrophils % (auto) 61.5 % (37.0-80.0); Nucleated Red Blood Cells % 0.1 %; Red Blood Cells 5.29 10^6/uL (4.5-5.90); Red Cell Distribution Width 13.3 % (11.8-14.3); White Blood Cell 7.1 10^3/uL (4.4-10.8)
[2020-09-07 06:53] LABS: BUN/Creatinine Ratio 16.4; Calcium 8.4 mg/dL (8.5-10.1); Magnesium 2.5 mg/dL (1.6-2.6); Potassium 4.2 mmol/L (3.5-5.1)
[2020-09-07] MEDS: METOPROLOL TARTRATE 25 MG TAB PO SCH ×2 (10:00→21:23)
[2020-09-07] MEDS: PANTOPRAZOLE 40 MG/10 ML VIAL INJ IV SCH (10:00)
[2020-09-07] MEDS: ATORVASTATIN 20 MG TAB PO SCH (10:00)
[2020-09-07] MEDS: HYDROcodone-ACET 5/325MG TAB PO PRN ×2 (11:44→19:14)
[2020-09-07 12:01] LABS: INR 1.11 (0.9-1.15); Partial Thromboplastin Time 54.4 sec (23.0-31.2)
[2020-09-07] MEDS: HEPARIN DRIP/D5W 100UNITS/ML 250 ML IV SCH ×2 (13:19→20:34)
[2020-09-07] MEDS ORDERED: WARFARIN SODIUM 10 MG TAB PO ONE (17:00)
[2020-09-07 19:24] LABS: INR 1.09 (0.9-1.15); Partial Thromboplastin Time 49.2 sec (23.0-31.2)
[2020-09-08 01:39] LABS: INR 1.08 (0.9-1.15); Partial Thromboplastin Time 63.2 sec (23.0-31.2)
[2020-09-08 05:00] VITALS: BP 117/81
[2020-09-08] MEDS: HEPARIN DRIP/D5W 100UNITS/ML 250 ML IV SCH (06:39)
[2020-09-08] MEDS: HYDROcodone-ACET 5/325MG TAB PO PRN (06:48)
[2020-09-08 07:05] LABS: Basophils # (auto) 0.1 10 ^3/uL (0-0.2); Basophils % (auto) 0.8 % (0.0-2.0); Eosinophils # (auto) 0.4 10 ^3/uL (0-0.8); Eosinophils % (auto) 4.9 % (0.0-7.0); Hematocrit 46.8 % (41.0-53.0); Hemoglobin 15.9 g/dL (13.5-17.5); Lymphocytes # (auto) 1.8 10 ^3/uL (0.4-5.4); Lymphocytes % (auto) 23.3 % (10.0-50.0); Mean Corpuscular Hemoglobin 29.7 pg (28.0-32.0); Mean Corpuscular Hgb Conc. 34.1 g/dL (32.0-36.0); Mean Corpuscular Volume 87.3 fL (80.0-100.0); Monocytes # (auto) 0.5 10 ^3/uL (0-1.3); Monocytes % (auto) 6.7 % (0.0-12.0); Neutrophils # (auto) 4.8 10 ^3/uL (1.6-8.6); Neutrophils % (auto) 64.3 % (37.0-80.0); Nucleated Red Blood Cells % 0.2 %; Red Blood Cells 5.36 10^6/uL (4.5-5.90); Red Cell Distribution Width 13.5 % (11.8-14.3); White Blood Cell 7.5 10^3/uL (4.4-10.8)
[2020-09-08 07:13] LABS: INR 1.13 (0.9-1.15)
[2020-09-08 08:23] LABS: Calcium 8.3 mg/dL (8.5-10.1); Magnesium 2.3 mg/dL (1.6-2.6); Potassium 4.5 mmol/L (3.5-5.1)
[2020-09-08 08:30] VITALS: BP 141/73
[2020-09-08] MEDS: PANTOPRAZOLE 40 MG/10 ML VIAL INJ IV SCH (10:26)
[2020-09-08] MEDS: ATORVASTATIN 20 MG TAB PO SCH (10:26)
[2020-09-08] MEDS: METOPROLOL TARTRATE 25 MG TAB PO SCH (10:27)
[2020-09-08 12:30] VITALS: BP 112/69
[2020-09-08 14:10] LABS: INR 1.13 (0.9-1.15)
[2020-09-08 14:15] LABS: Partial Thromboplastin Time 74.6 sec (23.0-31.2)
[2020-09-08 16:19] VITALS: BP 141/73
[2020-09-08] MEDS ORDERED: WARFARIN SODIUM 10 MG TAB PO ONE (17:00)
== END 2020-09-08 17:10 | disposition home or self-care (01) | DRG 197 ==
LOC: ER 15:41 → TELE 17:39 → DOU IN ICU 20:40 → ICU CENTRL 20:41 → DOU IN ICU 21:21 → TELE-WESTW 09-07 19:00
PROVIDERS: ADMIT Internal Medicine; ATTEND Internal Medicine
PROC: 5A09357 Assistance with Respiratory Ventilation, Less than 24 Consecutive Hours, Continuous Positive Airway Pressure (ICD-10-PCS; principal; 2020-09-06)
PROC: 5A09357 Assistance with Respiratory Ventilation, Less than 24 Consecutive Hours, Continuous Positive Airway Pressure (ICD-10-PCS; 2020-09-07)
DX: I82.432 Acute embolism and thrombosis of left popliteal vein (principal); K92.2 Gastrointestinal hemorrhage, unspecified; N17.9 Acute kidney failure, unspecified; E11.22 Type 2 diabetes mellitus with diabetic chronic kidney disease; E66.01 Morbid (severe) obesity due to excess calories; E78.5 Hyperlipidemia, unspecified; I13.0 Hypertensive heart and chronic kidney disease with heart failure and stage 1 through stage 4 chronic kidney disease, or unspecified chronic kidney disease; I25.10 Atherosclerotic heart disease of native coronary artery without angina pectoris; I48.20 Chronic atrial fibrillation, unspecified; I50.9 Heart failure, unspecified; J45.909 Unspecified asthma, uncomplicated; Z20.822 Contact with and (suspected) exposure to COVID-19; N18.9 Chronic kidney disease, unspecified; Z68.41 Body mass index [BMI] 40.0-44.9, adult; Z79.01 Long term (current) use of anticoagulants; Z82.49 Family history of ischemic heart disease and other diseases of the circulatory system; Z86.711 Personal history of pulmonary embolism; Z83.3 Family history of diabetes mellitus; Z86.718 Personal history of other venous thrombosis and embolism; Z71.3 Dietary counseling and surveillance
CPT/HCPCS: 36415; 71045; 71275; 80048; 80053; 83735; 83880; 85025; 85610; 85730; 87081; 87426; 93005; 93970; 94660; 96365; 96375; C9113; G0378; Q9967

== ENCOUNTER 2020-09-10 06:46 | Inpatient (IN) | payer MEDICAID ==
[~2020-09-10] VITALS: Ht 170.2 cm; Wt 137.9 kg
[~2020-09-10 06:46] MED LIST changes: +ATOR20TA PO; +LISI-275 PO; +METF-370 PO; -RIVA20TA PO
[2020-09-10] MEDS ORDERED: HYDROmorphone HCL 2 MG/ML VL IV ONE (07:00)
[2020-09-10] MEDS ORDERED: ONDANSETRON HCL 4 MG/2 ML VIAL IV ONE (07:00)
[2020-09-10 07:30] LABS: Basophils # (auto) 0 10 ^3/uL (0-0.2); Basophils % (auto) 0.3 % (0.0-2.0); Eosinophils # (auto) 0.1 10 ^3/uL (0-0.8); Eosinophils % (auto) 0.5 % (0.0-7.0); Hematocrit 49.1 % (41.0-53.0); Hemoglobin 16.7 g/dL (13.5-17.5); Lymphocytes # (auto) 1.1 10 ^3/uL (0.4-5.4); Lymphocytes % (auto) 8.8 % (10.0-50.0); Mean Corpuscular Hemoglobin 29.3 pg (28.0-32.0); Mean Corpuscular Volume 86.3 fL (80.0-100.0); Monocytes # (auto) 0.5 10 ^3/uL (0-1.3); Monocytes % (auto) 4.3 % (0.0-12.0); Neutrophils # (auto) 10.7 10 ^3/uL (1.6-8.6); Neutrophils % (auto) 86.1 % (37.0-80.0); Nucleated Red Blood Cells % 0.2 %; Platelet Count (auto) 272 10^3/uL (140-450); Red Blood Cells 5.69 10^6/uL (4.5-5.90); Red Cell Distribution Width 13.5 % (11.8-14.3); White Blood Cell 12.4 10^3/uL (4.4-10.8)
[2020-09-10 07:47] LABS: Albumin 3.4 g/dL (3.4-5.0); Anion Gap 9 (5-15); Blood Urea Nitrogen 22 mg/dL (7-18); Carbon Dioxide 17 mmol/L (21-32); Chloride 110 mmol/L (98-107); Glucose 120 mg/dL (74-106); INR 1.66 (0.9-1.15); Potassium 4.2 mmol/L (3.5-5.1); Sodium 136 mmol/L (136-145)
[2020-09-10 07:50] LABS: Alanine Aminotransferase 62 U/L (16-61); Alkaline Phosphatase 65 U/L (45-117); Aspartate Aminotransferase 52 U/L (15-37); BUN/Creatinine Ratio 22.2; Bilirubin, Total 0.6 mg/dL (0.2-1.0); GFR African American 100 mL/min; GFR Non-African American 83 mL/min
[2020-09-10] MEDS ORDERED: AMIODARONE HCL 150 MG in D5W 5% 100 ML IV ONE (11:00)
[2020-09-10] MEDS ORDERED: AMIODARONE HCL (50 MG/ ML) 3 ML VIAL IV ONE (11:11)
[2020-09-10] MEDS ORDERED: AMIODARONE 450mg/250ml AE 250 ML IV ONE (11:15)
[2020-09-10] MEDS ORDERED: NITROGLYCERIN 0.4 MG SL TAB SL PRN (11:45)
[2020-09-10] MEDS ORDERED: TEMAZEPAM 15 MG CAP PO PRN (11:45)
[2020-09-10] MEDS ORDERED: MORPHINE SULF INJ 2 MG/ML SYRINGE 1ML IV PRN (11:45)
[2020-09-10] MEDS ORDERED: cefTRIAXone 1GM/50ML D5W 50 ML IV ONE (11:45)
[2020-09-10] MEDS ORDERED: ACETAMINOPHEN 325 MG TAB PO PRN (11:45)
[2020-09-10] MEDS ORDERED: SODIUM CHLORIDE 0.9% 1,000 ML IV SCH (11:45)
[2020-09-10] MEDS ORDERED: DOCUSATE SOD 100 MG CAP PO PRN (11:45)
[2020-09-10] MEDS ORDERED: ONDANSETRON HCL 4 MG/2 ML VIAL IV PRN (11:45)
[2020-09-10] MEDS: AMIODARONE 450mg/250ml AE 250 ML IV SCH ×2 (11:57→12:07)
[2020-09-10] MEDS ORDERED: AMIODARONE HCL 200 MG TAB PO ONE (14:00)
[2020-09-10] MEDS ORDERED: MECLIZINE HCL 25 MG TAB PO ONE (14:45)
[2020-09-10] MEDS ORDERED: IOPAMIDOL 76 % (ISOVUE-370) 100ML BTL IV ONE ×3 (16:13→20:51)
[2020-09-10] MEDS ORDERED: WARFARIN SODIUM 5 MG TAB PO SCH (17:00)
[2020-09-10] MEDS ORDERED: WARFARIN SODIUM 10 MG TAB PO ONE (17:00)
[2020-09-10 17:13] LABS: Urine Bacteria NONE SEEN /hpf (None Seen); Urine Blood Negative /uL (Negative); Urine Mucus FEW (None Seen); Urine Specific Gravity 1.027 (1.001-1.035); Urine WBC 3 /hpf (0 - 3)
[2020-09-10 21:05] LABS: Cholesterol 126 mg/dL (< 200)
[2020-09-10 21:08] LABS: HDL Cholesterol 38 mg/dL (40-59); LDL Cholesterol 76 mg/dL (< 100); Triglycerides 80 mg/dL (< 150)
[2020-09-10] MEDS: MECLIZINE HCL 25 MG TAB PO SCH (21:32)
[2020-09-10] MEDS: FAMOTIDINE 20 MG TAB PO SCH (21:32)
[2020-09-10] MEDS ORDERED: ASCORBIC ACID 500 MG TAB PO SCH (22:00)
[2020-09-10] MEDS ORDERED: ATORVASTATIN 20 MG TAB PO SCH (22:00)
[2020-09-11] VITALS (7 sets, daily range): BP systolic 93–115; BP diastolic 50–86
[2020-09-11 06:11] LABS: Basophils # (auto) 0 10 ^3/uL (0-0.2); Basophils % (auto) 0.3 % (0.0-2.0); Eosinophils # (auto) 0.3 10 ^3/uL (0-0.8); Eosinophils % (auto) 2.5 % (0.0-7.0); Hematocrit 46.7 % (41.0-53.0); Hemoglobin 16.3 g/dL (13.5-17.5); Lymphocytes # (auto) 1.8 10 ^3/uL (0.4-5.4); Lymphocytes % (auto) 17.1 % (10.0-50.0); Mean Corpuscular Hemoglobin 30.1 pg (28.0-32.0); Mean Corpuscular Hgb Conc. 34.9 g/dL (32.0-36.0); Mean Corpuscular Volume 86.3 fL (80.0-100.0); Monocytes # (auto) 0.7 10 ^3/uL (0-1.3); Neutrophils # (auto) 7.7 10 ^3/uL (1.6-8.6); Neutrophils % (auto) 73.1 % (37.0-80.0); Nucleated Red Blood Cells % 0.1 %; Platelet Count (auto) 235 10^3/uL (140-450); Red Blood Cells 5.42 10^6/uL (4.5-5.90); Red Cell Distribution Width 13.1 % (11.8-14.3); White Blood Cell 10.5 10^3/uL (4.4-10.8)
[2020-09-11 06:24] LABS: Potassium 4.4 mmol/L (3.5-5.1)
[2020-09-11 06:27] LABS: INR 2.18 (0.9-1.15)
[2020-09-11 06:36] LABS: Albumin 3.2 g/dL (3.4-5.0); BUN/Creatinine Ratio 16.7; Bilirubin, Total 0.7 mg/dL (0.2-1.0); Calcium 8.5 mg/dL (8.5-10.1); Total Protein 6.4 g/dL (6.4-8.2)
[2020-09-11] MEDS: MECLIZINE HCL 25 MG TAB PO SCH (06:39)
[2020-09-11] MEDS ORDERED: DEXTROSE (50%) 50ML SYRG IV PRN (06:45)
[2020-09-11] MEDS: InsuLIN REG 1unit/0.01ml Soln (100units/ml) SC SCH ×2 (06:49→11:30)
[2020-09-11] MEDS: ACCU-CHEK COMFORT CURVE STRIP VI SCH ×2 (06:49→11:48)
[2020-09-11] MEDS ORDERED: MECLIZINE HCL 25 MG TAB PO PRN (08:45)
[2020-09-11] MEDS: FAMOTIDINE 20 MG TAB PO SCH (09:50)
[2020-09-11] MEDS ORDERED: ENOXAPARIN SOD 40 MG/0.4 ML SYRINGE SC SCH (10:00)
[2020-09-11] MEDS ORDERED: AMIODARONE HCL 200 MG TAB PO SCH (10:00)
[2020-09-11] MEDS ORDERED: ZINC SULFATE 220mg CAP or TAB PO SCH (10:00)
[2020-09-11] MEDS ORDERED: ENOXAPARIN SOD 30 MG/0.3 ML SYRINGE SC SCH (10:00)
[2020-09-11] MEDS ORDERED: MULTIPLE VITAMIN TAB PO SCH (10:00)
[2020-09-11] MEDS ORDERED: MECL25TA18 PO (11:08)
[2020-09-11] MEDS ORDERED: MET50T PO (11:08)
[2020-09-11] MEDS ORDERED: WARF5TAB71 PO (11:08)
[2020-09-11] MEDS ORDERED: WARFARIN SODIUM 5 MG TAB PO SCH (17:00)
== END 2020-09-11 16:30 | disposition home or self-care (01) | DRG 45 ==
LOC: EDBD 06:46 → ER 06:46 → TELE 06:47 → TELE-CENTR 23:51
PROVIDERS: ADMIT Hospitalist; ATTEND Hospitalist
DX: I63.89 Other cerebral infarction (principal); E66.01 Morbid (severe) obesity due to excess calories; I82.402 Acute embolism and thrombosis of unspecified deep veins of left lower extremity; Z68.41 Body mass index [BMI] 40.0-44.9, adult; R06.03 Acute respiratory distress; Z20.822 Contact with and (suspected) exposure to COVID-19; E11.9 Type 2 diabetes mellitus without complications; E78.5 Hyperlipidemia, unspecified; I48.20 Chronic atrial fibrillation, unspecified; J45.909 Unspecified asthma, uncomplicated; Z79.899 Other long term (current) drug therapy; Z82.49 Family history of ischemic heart disease and other diseases of the circulatory system; Z83.3 Family history of diabetes mellitus; Z86.711 Personal history of pulmonary embolism; R42 Dizziness and giddiness
CPT/HCPCS: 36415; 70450; 70551; 71045; 80053; 80061; 81001; 82962; 83880; 84484; 85025; 85379; 85610; 85730; 87081; 87426; 93005; 93306; 93886; G0378; J0696; J2405; J7060

== ENCOUNTER 2020-09-17 14:03 | Inpatient (IN) | payer MEDICAID ==
[~2020-09-17] VITALS: Ht 177.8 cm; Wt 133.0 kg
[~2020-09-17 14:03] MED LIST changes: -HYDR12.56 PO; +MECL25TA18 PO; +MET50T PO; +WARF5TAB71 PO
[2020-09-17] MEDS ORDERED: ONDANSETRON HCL 4 MG/2 ML VIAL IV ONE (14:15)
[2020-09-17] MEDS ORDERED: MORPHINE SULFATE 4 MG/ML SYR/VIAL IV ONE (14:15)
[2020-09-17 15:08] LABS: Basophils # (auto) 0.1 10 ^3/uL (0-0.2); Basophils % (auto) 0.9 % (0.0-2.0); Eosinophils # (auto) 0.5 10 ^3/uL (0-0.8); Eosinophils % (auto) 5.4 % (0.0-7.0); Hematocrit 49.1 % (41.0-53.0); Hemoglobin 16.7 g/dL (13.5-17.5); Lymphocytes # (auto) 2.2 10 ^3/uL (0.4-5.4); Lymphocytes % (auto) 24.5 % (10.0-50.0); Mean Corpuscular Hemoglobin 29.5 pg (28.0-32.0); Mean Corpuscular Hgb Conc. 33.9 g/dL (32.0-36.0); Mean Corpuscular Volume 86.9 fL (80.0-100.0); Monocytes # (auto) 0.8 10 ^3/uL (0-1.3); Monocytes % (auto) 8.4 % (0.0-12.0); Neutrophils # (auto) 5.5 10 ^3/uL (1.6-8.6); Neutrophils % (auto) 60.8 % (37.0-80.0); Nucleated Red Blood Cells % 0.2 %; Platelet Count (auto) 328 10^3/uL (140-450); Red Blood Cells 5.65 10^6/uL (4.5-5.90); Red Cell Distribution Width 13.4 % (11.8-14.3)
[2020-09-17 15:18] LABS: INR 1.55 (0.9-1.15); Partial Thromboplastin Time 32.1 sec (23.0-31.2)
[2020-09-17 15:20] LABS: Calcium 8.2 mg/dL (8.5-10.1); Chloride 112 mmol/L (98-107); Potassium 4.4 mmol/L (3.5-5.1); Sodium 142 mmol/L (136-145)
[2020-09-17 15:22] LABS: Alanine Aminotransferase 26 U/L (16-61); Anion Gap 11 (5-15); Aspartate Aminotransferase 15 U/L (15-37); BUN/Creatinine Ratio 16.8; Blood Urea Nitrogen 18 mg/dL (7-18); Carbon Dioxide 19 mmol/L (21-32); GFR African American 91 mL/min; GFR Non-African American 75 mL/min; Glucose 102 mg/dL (74-106)
[2020-09-17 15:28] LABS: Alkaline Phosphatase 77 U/L (45-117); Bilirubin, Total 0.4 mg/dL (0.2-1.0); Total Protein 6.5 g/dL (6.4-8.2)
[2020-09-17] MEDS ORDERED: NITROGLYCERIN 0.4 MG SL TAB SL PRN (22:15)
[2020-09-17] MEDS ORDERED: MORPHINE SULF INJ 2 MG/ML SYRINGE 1ML IV PRN (22:15)
[2020-09-17] MEDS ORDERED: DEXTROSE (50%) 50ML SYRG IV PRN (22:15)
[2020-09-17] MEDS ORDERED: dilTIAZem 25 MG/5 ML VIAL IV ONE (22:15)
[2020-09-18] MEDS: SODIUM CHLORIDE 0.9% 1,000 ML IV SCH (00:07)
[2020-09-18] MEDS: HYDROcodone-ACET 5/325MG TAB PO PRN ×3 (02:38→20:35)
[2020-09-18 03:20] VITALS: BP 124/69
[2020-09-18 05:21] VITALS: BP 124/69
[2020-09-18 06:04] LABS: Basophils # (auto) 0.1 10 ^3/uL (0-0.2); Basophils % (auto) 0.9 % (0.0-2.0); Eosinophils # (auto) 0.4 10 ^3/uL (0-0.8); Eosinophils % (auto) 3.8 % (0.0-7.0); Hematocrit 46.7 % (41.0-53.0); Hemoglobin 16.1 g/dL (13.5-17.5); Lymphocytes # (auto) 2.2 10 ^3/uL (0.4-5.4); Lymphocytes % (auto) 22.3 % (10.0-50.0); Mean Corpuscular Hemoglobin 29.8 pg (28.0-32.0); Mean Corpuscular Hgb Conc. 34.4 g/dL (32.0-36.0); Mean Corpuscular Volume 86.5 fL (80.0-100.0); Monocytes # (auto) 0.7 10 ^3/uL (0-1.3); Monocytes % (auto) 7.4 % (0.0-12.0); Neutrophils # (auto) 6.3 10 ^3/uL (1.6-8.6); Neutrophils % (auto) 65.6 % (37.0-80.0); Nucleated Red Blood Cells % 0.1 %; Platelet Count (auto) 285 10^3/uL (140-450); Red Cell Distribution Width 13.5 % (11.8-14.3); White Blood Cell 9.7 10^3/uL (4.4-10.8)
[2020-09-18 06:23] LABS: Albumin 3.1 g/dL (3.4-5.0); Calcium 8.5 mg/dL (8.5-10.1); Potassium 4.8 mmol/L (3.5-5.1)
[2020-09-18 06:26] LABS: INR 1.5 (0.9-1.15)
[2020-09-18 06:27] LABS: BUN/Creatinine Ratio 17.4; Bilirubin, Total 0.6 mg/dL (0.2-1.0); Total Protein 6.5 g/dL (6.4-8.2)
[2020-09-18] MEDS: InsuLIN REG 1unit/0.01ml Soln (100units/ml) SC SCH ×4 (06:51→22:00)
[2020-09-18] MEDS: ACCU-CHEK COMFORT CURVE STRIP VI SCH ×4 (06:52→23:08)
[2020-09-18 08:00] VITALS: BP 115/73
[2020-09-18] MEDS: METOPROLOL TARTRATE 25 MG TAB PO SCH ×2 (09:18→23:08)
[2020-09-18] MEDS: LISINOPRIL 5 MG TAB PO SCH (09:19)
[2020-09-18] MEDS ORDERED: ATORVASTATIN 20 MG TAB PO SCH (10:00)
[2020-09-18 11:57] VITALS: BP 143/73
[2020-09-18] MEDS ORDERED: ASPirin 81 mg TAB PO SCH (13:45)
[2020-09-18 16:00] VITALS: BP 124/75
[2020-09-18] MEDS ORDERED: WARFARIN SODIUM 2.5 MG TAB PO ONE ×2 (17:00→17:30)
[2020-09-18 22:00] VITALS: BP 113/70
[2020-09-19 05:00] VITALS: BP 102/64
[2020-09-19] MEDS: ACCU-CHEK COMFORT CURVE STRIP VI SCH ×4 (05:55→22:35)
[2020-09-19] MEDS: InsuLIN REG 1unit/0.01ml Soln (100units/ml) SC SCH ×4 (05:56→22:00)
[2020-09-19 06:39] LABS: Basophils # (auto) 0.1 10 ^3/uL (0-0.2); Basophils % (auto) 1.2 % (0.0-2.0); Eosinophils # (auto) 0.4 10 ^3/uL (0-0.8); Eosinophils % (auto) 5.4 % (0.0-7.0); Hematocrit 46.3 % (41.0-53.0); Lymphocytes # (auto) 2.2 10 ^3/uL (0.4-5.4); Mean Corpuscular Hemoglobin 30.2 pg (28.0-32.0); Mean Corpuscular Hgb Conc. 34.6 g/dL (32.0-36.0); Monocytes # (auto) 0.5 10 ^3/uL (0-1.3); Monocytes % (auto) 6.1 % (0.0-12.0); Neutrophils # (auto) 4.9 10 ^3/uL (1.6-8.6); Neutrophils % (auto) 60.3 % (37.0-80.0); Nucleated Red Blood Cells % 0.1 %; Platelet Count (auto) 284 10^3/uL (140-450); Red Blood Cells 5.32 10^6/uL (4.5-5.90); Red Cell Distribution Width 13.4 % (11.8-14.3); White Blood Cell 8.1 10^3/uL (4.4-10.8)
[2020-09-19 06:47] LABS: Potassium 4.9 mmol/L (3.5-5.1)
[2020-09-19 06:50] LABS: BUN/Creatinine Ratio 18.7
[2020-09-19 06:57] LABS: INR 1.63 (0.9-1.15)
[2020-09-19] MEDS: SODIUM CHLORIDE 0.9% 1,000 ML IV SCH ×3 (07:41→22:39)
[2020-09-19] MEDS: HYDROcodone-ACET 5/325MG TAB PO PRN (07:41)
[2020-09-19 08:59] VITALS: BP 102/71
[2020-09-19] MEDS: LISINOPRIL 5 MG TAB PO SCH (10:00)
[2020-09-19] MEDS: METOPROLOL TARTRATE 25 MG TAB PO SCH ×2 (10:00→22:36)
[2020-09-19 12:41] VITALS: BP 101/67
[2020-09-19 16:37] VITALS: BP 116/81
[2020-09-19] MEDS ORDERED: WARFARIN SODIUM 5 MG TAB PO ONE ×2 (17:00→19:30)
[2020-09-19 20:00] VITALS: BP 108/81
[2020-09-19 21:41] VITALS: BP 109/81
[2020-09-19] MEDS ORDERED: ATORVASTATIN 20 MG TAB PO SCH (22:00)
[2020-09-20 04:58] VITALS: BP 105/67
[2020-09-20] MEDS: SODIUM CHLORIDE 0.9% 1,000 ML IV SCH (06:03)
[2020-09-20] MEDS: InsuLIN REG 1unit/0.01ml Soln (100units/ml) SC SCH ×2 (06:04→11:30)
[2020-09-20] MEDS: ACCU-CHEK COMFORT CURVE STRIP VI SCH ×2 (06:04→12:17)
[2020-09-20 07:00] LABS: Basophils # (auto) 0.1 10 ^3/uL (0-0.2); Basophils % (auto) 0.9 % (0.0-2.0); Eosinophils # (auto) 0.4 10 ^3/uL (0-0.8); Hematocrit 46.2 % (41.0-53.0); Hemoglobin 16.2 g/dL (13.5-17.5); Lymphocytes # (auto) 2.1 10 ^3/uL (0.4-5.4); Lymphocytes % (auto) 24.3 % (10.0-50.0); Mean Corpuscular Volume 85.8 fL (80.0-100.0); Monocytes # (auto) 0.6 10 ^3/uL (0-1.3); Monocytes % (auto) 6.4 % (0.0-12.0); Neutrophils # (auto) 5.5 10 ^3/uL (1.6-8.6); Neutrophils % (auto) 63.4 % (37.0-80.0); Nucleated Red Blood Cells % 1.1 %; Platelet Count (auto) 279 10^3/uL (140-450); Red Blood Cells 5.39 10^6/uL (4.5-5.90); Red Cell Distribution Width 13.3 % (11.8-14.3); White Blood Cell 8.6 10^3/uL (4.4-10.8)
[2020-09-20 07:22] LABS: BUN/Creatinine Ratio 22.6; Calcium 8.1 mg/dL (8.5-10.1); Potassium 4.5 mmol/L (3.5-5.1)
[2020-09-20 07:25] LABS: INR 2.26 (0.9-1.15)
[2020-09-20 09:00] VITALS: BP 116/88
[2020-09-20] MEDS: METOPROLOL TARTRATE 25 MG TAB PO SCH (09:25)
[2020-09-20] MEDS: LISINOPRIL 5 MG TAB PO SCH (10:00)
[2020-09-20] MEDS: HYDROcodone-ACET 5/325MG TAB PO PRN (10:20)
[2020-09-20] MEDS ORDERED: WARF7.5T20 PO (11:25)
[2020-09-20 12:51] VITALS: BP 116/75
[2020-09-20 13:13] VITALS: BP 116/75
[2020-09-20] MEDS ORDERED: WARFARIN SODIUM 5 MG TAB PO ONE (17:00)
== END 2020-09-20 16:00 | disposition home health service (06) | DRG 58 ==
LOC: ER 14:03 → TELE 21:59 → TELE-CENTR 09-18 03:16
PROVIDERS: ADMIT Hospitalist; ATTEND Hospitalist
DX: G96.810 Intracranial hypotension, unspecified (principal); I48.20 Chronic atrial fibrillation, unspecified; E66.01 Morbid (severe) obesity due to excess calories; E44.1 Mild protein-calorie malnutrition; I12.9 Hypertensive chronic kidney disease with stage 1 through stage 4 chronic kidney disease, or unspecified chronic kidney disease; E11.22 Type 2 diabetes mellitus with diabetic chronic kidney disease; E78.5 Hyperlipidemia, unspecified; J45.909 Unspecified asthma, uncomplicated; N18.9 Chronic kidney disease, unspecified; Z68.41 Body mass index [BMI] 40.0-44.9, adult; Z79.01 Long term (current) use of anticoagulants; Z82.49 Family history of ischemic heart disease and other diseases of the circulatory system; Z86.711 Personal history of pulmonary embolism; Z83.3 Family history of diabetes mellitus; Z86.718 Personal history of other venous thrombosis and embolism; Z86.73 Personal history of transient ischemic attack (TIA), and cerebral infarction without residual deficits; D68.69 Other thrombophilia; Z20.822 Contact with and (suspected) exposure to COVID-19
CPT/HCPCS: 36415; 70450; 70551; 71045; 80048; 80053; 82962; 83880; 84484; 85025; 85610; 85730; 87081; 87426; 93005; 96374; 96375; 97110; 97116; 97163; 97530; G0378; J1815; J2405

== ENCOUNTER → 2020-10-02 | Outpatient (CLI) | payer MEDICAID ==
[~2020-10-02] MED LIST changes: -WARF5TAB71 PO; +WARF7.5T20 PO
[2020-10-02 14:58] LABS: INR 2.77 (0.9-1.15)
[2020-10-02 15:39] LABS: Free T4 (Free Thyroxine) 1.02 ng/dL (0.89-1.76)
[2020-10-02 15:40] LABS: Folate (Folic Acid) > 24.00 ng/mL (5.38-24)
== END | disposition home or self-care (01) ==
LOC: LAB 14:09
PROVIDERS: ATTEND Internal Medicine
DX: I10 Essential (primary) hypertension (principal); I82.0 Budd-Chiari syndrome; R42 Dizziness and giddiness
CPT/HCPCS: 36415; 82607; 82746; 84439; 84443; 85610

== ENCOUNTER 2020-11-29 08:22 | Inpatient (IN) | payer MEDICAID ==
[~2020-11-29] VITALS: Ht 182.9 cm; Wt 134.7 kg
[2020-11-29] MEDS ORDERED: FUROSEMIDE 40 MG/4 ML VIAL IV ONE (09:15)
[2020-11-29 09:31] LABS: Basophils # (auto) 0.1 10 ^3/uL (0-0.2); Eosinophils # (auto) 0.3 10 ^3/uL (0-0.8); Eosinophils % (auto) 3.7 % (0.0-7.0); Hematocrit 49.3 % (41.0-53.0); Hemoglobin 16.6 g/dL (13.5-17.5); Lymphocytes # (auto) 1.5 10 ^3/uL (0.4-5.4); Lymphocytes % (auto) 19.7 % (10.0-50.0); Mean Corpuscular Hemoglobin 29.6 pg (28.0-32.0); Mean Corpuscular Hgb Conc. 33.7 g/dL (32.0-36.0); Mean Corpuscular Volume 87.8 fL (80.0-100.0); Monocytes # (auto) 0.6 10 ^3/uL (0-1.3); Neutrophils % (auto) 67.6 % (37.0-80.0); Nucleated Red Blood Cells % 0.1 %; Red Blood Cells 5.62 10^6/uL (4.5-5.90); Red Cell Distribution Width 13.7 % (11.8-14.3); White Blood Cell 7.4 10^3/uL (4.4-10.8)
[2020-11-29 09:47] LABS: Albumin 3.4 g/dL (3.4-5.0); Anion Gap 8 (5-15); Blood Urea Nitrogen 14 mg/dL (7-18); Calcium 8.4 mg/dL (8.5-10.1); Carbon Dioxide 20 mmol/L (21-32); Chloride 112 mmol/L (98-107); Glucose 87 mg/dL (74-106); Potassium 4.3 mmol/L (3.5-5.1); Sodium 140 mmol/L (136-145)
[2020-11-29 09:54] LABS: Alanine Aminotransferase 22 U/L (16-61); Alkaline Phosphatase 65 U/L (45-117); Aspartate Aminotransferase 20 U/L (15-37); BUN/Creatinine Ratio 13.1; Bilirubin, Total 1.1 mg/dL (0.2-1.0); GFR African American 91 mL/min; GFR Non-African American 75 mL/min; Total Protein 6.6 g/dL (6.4-8.2)
[2020-11-29 10:01] LABS: INR 2.46 (0.9-1.15)
[2020-11-29] MEDS ORDERED: dilTIAZem 25 MG/5 ML VIAL IV ONE ×2 (11:23→11:30)
[2020-11-29] MEDS ORDERED: dilTIAZem 125mg/125ml BAG KIT 125 ML IV ONE (11:30)
[2020-11-29 11:54] LABS: Urine Bacteria FEW /hpf (None Seen); Urine Blood Negative /uL (Negative); Urine Specific Gravity 1.011 (1.001-1.035); Urine WBC 1 /hpf (0 - 3)
[2020-11-29] MEDS ORDERED: hydrALAZINE HCL 20 MG/ML VL IV PRN (14:30)
[2020-11-29] MEDS ORDERED: ACETAMINOPHEN 325 MG TAB PO PRN (14:30)
[2020-11-29] MEDS ORDERED: DEXTROSE (50%) 50ML SYRG IV ONE (14:30)
[2020-11-29] MEDS ORDERED: HYDROcodone-ACET 5/325MG TAB PO PRN (14:30)
[2020-11-29] MEDS ORDERED: PANTOPRAZOLE 40 MG TAB PO ONE (14:30)
[2020-11-29] MEDS ORDERED: AMIODARONE 450mg/250ml AE 250 ML IV SCH (14:30)
[2020-11-29] MEDS ORDERED: ONDANSETRON HCL 4 MG/2 ML VIAL IV PRN (14:30)
[2020-11-29] MEDS ORDERED: AMIODARONE HCL 150 MG in D5W 5% 100 ML IV ONE (14:30)
[2020-11-29] MEDS ORDERED: MECLIZINE HCL 25 MG TAB PO PRN (16:15)
[2020-11-29] MEDS ORDERED: WARFARIN SODIUM 2 MG TAB PO ONE (17:00)
[2020-11-29] MEDS: InsuLIN REG 1unit/0.01ml Soln (100units/ml) SC SCH ×2 (17:00→22:37)
[2020-11-29] MEDS: ACCU-CHEK COMFORT CURVE STRIP VI SCH ×2 (17:27→22:35)
[2020-11-29] MEDS ORDERED: ALBUTEROL SULF 2.5 MG/0.5ML(0.5%) NEB SOLN NEB PRN (19:30)
[2020-11-29 19:41] VITALS: BP 110/70
[2020-11-29] MEDS: AMIODARONE 450mg/250ml AE 250 ML IV SCH (22:07)
[2020-11-29 22:52] VITALS: BP 135/79
[2020-11-30 05:00] VITALS: BP 118/79
[2020-11-30] MEDS: ACCU-CHEK COMFORT CURVE STRIP VI SCH ×4 (06:36→21:30)
[2020-11-30] MEDS: InsuLIN REG 1unit/0.01ml Soln (100units/ml) SC SCH ×4 (06:37→21:39)
[2020-11-30 07:47] LABS: Basophils # (auto) 0.1 10 ^3/uL (0-0.2); Basophils % (auto) 0.7 % (0.0-2.0); Eosinophils # (auto) 0.4 10 ^3/uL (0-0.8); Eosinophils % (auto) 4.9 % (0.0-7.0); Hematocrit 48.9 % (41.0-53.0); Hemoglobin 16.4 g/dL (13.5-17.5); Lymphocytes # (auto) 1.4 10 ^3/uL (0.4-5.4); Lymphocytes % (auto) 17.2 % (10.0-50.0); Mean Corpuscular Hemoglobin 29.4 pg (28.0-32.0); Mean Corpuscular Hgb Conc. 33.6 g/dL (32.0-36.0); Mean Corpuscular Volume 87.5 fL (80.0-100.0); Monocytes # (auto) 0.8 10 ^3/uL (0-1.3); Monocytes % (auto) 9.2 % (0.0-12.0); Neutrophils # (auto) 5.5 10 ^3/uL (1.6-8.6); Nucleated Red Blood Cells % 0.2 %; Red Blood Cells 5.59 10^6/uL (4.5-5.90); Red Cell Distribution Width 13.9 % (11.8-14.3); White Blood Cell 8.2 10^3/uL (4.4-10.8)
[2020-11-30 08:00] VITALS: BP 121/77
[2020-11-30 08:12] LABS: INR 2.11 (0.9-1.15); Partial Thromboplastin Time 36.9 sec (23.0-31.2)
[2020-11-30] MEDS: LISINOPRIL 5 MG TAB PO SCH (09:23)
[2020-11-30 12:00] VITALS: BP 117/71
[2020-11-30 16:00] VITALS: BP 111/74
[2020-11-30] MEDS: AMIODARONE 450mg/250ml AE 250 ML IV SCH (16:58)
[2020-11-30] MEDS ORDERED: WARFARIN SODIUM 2 MG TAB PO ONE (17:00)
[2020-11-30 22:00] VITALS: BP 103/67
[2020-11-30] MEDS ORDERED: ATORVASTATIN 20 MG TAB PO SCH (22:00)
[2020-11-30] MEDS ORDERED: DOXYCYCLINE 100 MG TAB/CAP PO SCH (23:15)
[2020-12-01 05:00] VITALS: BP 125/76
[2020-12-01] MEDS: ACCU-CHEK COMFORT CURVE STRIP VI SCH ×2 (06:00→11:30)
[2020-12-01] MEDS: InsuLIN REG 1unit/0.01ml Soln (100units/ml) SC SCH ×2 (06:09→11:30)
[2020-12-01 08:00] VITALS: BP 111/69
[2020-12-01 08:19] LABS: INR 2.23 (0.9-1.15); Partial Thromboplastin Time 31.4 sec (23.0-31.2)
[2020-12-01 08:45] LABS: Basophils # (auto) 0.1 10 ^3/uL (0-0.2); Basophils % (auto) 0.7 % (0.0-2.0); Eosinophils # (auto) 0.3 10 ^3/uL (0-0.8); Eosinophils % (auto) 3.7 % (0.0-7.0); Hemoglobin 16.8 g/dL (13.5-17.5); Lymphocytes # (auto) 1.7 10 ^3/uL (0.4-5.4); Lymphocytes % (auto) 19.4 % (10.0-50.0); Mean Corpuscular Hemoglobin 29.8 pg (28.0-32.0); Mean Corpuscular Hgb Conc. 34.2 g/dL (32.0-36.0); Monocytes # (auto) 0.7 10 ^3/uL (0-1.3); Monocytes % (auto) 7.4 % (0.0-12.0); Neutrophils # (auto) 6.1 10 ^3/uL (1.6-8.6); Neutrophils % (auto) 68.8 % (37.0-80.0); Nucleated Red Blood Cells % 0.2 %; Red Blood Cells 5.64 10^6/uL (4.5-5.90); Red Cell Distribution Width 13.7 % (11.8-14.3); White Blood Cell 8.9 10^3/uL (4.4-10.8)
[2020-12-01] MEDS: LISINOPRIL 5 MG TAB PO SCH (10:00)
[2020-12-01] MEDS ORDERED: AMIODARONE HCL 200 MG TAB PO SCH (10:00)
[2020-12-01] MEDS ORDERED: AMIO200T4 PO (10:55)
[2020-12-01 11:24] VITALS: BP 111/69
[2020-12-01 11:55] VITALS: BP 113/82
[2020-12-01] MEDS ORDERED: WARFARIN SODIUM 5 MG TAB PO ONE (17:00)
== END 2020-12-01 13:30 | disposition home or self-care (01) | DRG 201 ==
LOC: ER 08:22 → DOU IN ADS 14:20 → TELE-EAST 21:15
PROVIDERS: ADMIT Internal Medicine; ATTEND Internal Medicine
DX: I48.91 Unspecified atrial fibrillation (principal); I11.0 Hypertensive heart disease with heart failure; E66.01 Morbid (severe) obesity due to excess calories; I50.9 Heart failure, unspecified; E11.9 Type 2 diabetes mellitus without complications; Z20.822 Contact with and (suspected) exposure to COVID-19; E78.5 Hyperlipidemia, unspecified; J98.11 Atelectasis; Z68.41 Body mass index [BMI] 40.0-44.9, adult; Z79.01 Long term (current) use of anticoagulants; Z79.899 Other long term (current) drug therapy; Z82.49 Family history of ischemic heart disease and other diseases of the circulatory system; Z83.3 Family history of diabetes mellitus; Z86.711 Personal history of pulmonary embolism; Z86.718 Personal history of other venous thrombosis and embolism; Z86.73 Personal history of transient ischemic attack (TIA), and cerebral infarction without residual deficits
CPT/HCPCS: 36415; 71045; 80053; 81001; 82962; 83880; 84484; 85025; 85379; 85610; 85730; 87426; 93005; 96365; 96366; 96375; G0378; J1815; J7060

== ENCOUNTER → 2020-12-12 | Outpatient (CLI) | payer MEDICAID ==
[~2020-12-12] MED LIST changes: +AMIO200T4 PO
[2020-12-12 14:36] LABS: Basophils # (auto) 0.1 10 ^3/uL (0-0.2); Eosinophils # (auto) 0.5 10 ^3/uL (0-0.8); Eosinophils % (auto) 4.9 % (0.0-7.0); Hematocrit 49.4 % (41.0-53.0); Hemoglobin 17.1 g/dL (13.5-17.5); Lymphocytes # (auto) 2.6 10 ^3/uL (0.4-5.4); Lymphocytes % (auto) 26.7 % (10.0-50.0); Mean Corpuscular Hemoglobin 29.9 pg (28.0-32.0); Mean Corpuscular Hgb Conc. 34.6 g/dL (32.0-36.0); Mean Corpuscular Volume 86.4 fL (80.0-100.0); Monocytes # (auto) 0.8 10 ^3/uL (0-1.3); Monocytes % (auto) 8.2 % (0.0-12.0); Neutrophils # (auto) 5.7 10 ^3/uL (1.6-8.6); Neutrophils % (auto) 59.2 % (37.0-80.0); Platelet Count (auto) 384 10^3/uL (140-450); Red Blood Cells 5.72 10^6/uL (4.5-5.90); Red Cell Distribution Width 13.8 % (11.8-14.3); White Blood Cell 9.7 10^3/uL (4.4-10.8)
[2020-12-12 14:51] LABS: Urine Bacteria NONE SEEN /hpf (None Seen); Urine Blood Negative /uL (Negative); Urine Specific Gravity 1.018 (1.001-1.035); Urine WBC <1 /hpf (0 - 3)
== END | disposition home or self-care (01) ==
LOC: LAB 14:17
PROVIDERS: ATTEND Internal Medicine
DX: E11.42 Type 2 diabetes mellitus with diabetic polyneuropathy (principal)
CPT/HCPCS: 36415; 81001; 82043; 82306; 83036; 85025

== ENCOUNTER → 2021-01-17 | Outpatient (CLI) | payer MEDICAID | END | disposition home or self-care (01) | LOC: XYW 07:28 | PROVIDERS: ATTEND Internal Medicine | DX: I48.91 Unspecified atrial fibrillation (principal); I10 Essential (primary) hypertension; R06.02 Shortness of breath | CPT/HCPCS: 93306 ==

== ENCOUNTER → 2021-05-27 | Outpatient (CLI) | payer MEDICAID ==
[~2021-05-27] VITALS: Ht 177.8 cm; Wt 142.4 kg
[~2021-05-27] MED LIST changes: +ADENOSINE 120 MG in GIVE UN-DILUTED 0 ML IV STA
[2021-05-27 08:37] VITALS: BP 108/69
== END | disposition home or self-care (01) ==
LOC: XY 07:07
PROVIDERS: ATTEND Internal Medicine
DX: R07.9 Chest pain, unspecified (principal)
CPT/HCPCS: 78452; 93017; A9500; J0153

== ENCOUNTER → 2021-06-19 | Outpatient (CLI) | payer MEDICAID ==
[~2021-06-19] MED LIST changes: -ADENOSINE 120 MG in GIVE UN-DILUTED 0 ML IV STA
[2021-06-19 09:01] LABS: Potassium 4.6 mmol/L (3.5-5.1)
[2021-06-19 09:11] LABS: Albumin 3.5 g/dL (3.4-5.0); BUN/Creatinine Ratio 15.2; Bilirubin, Total 0.7 mg/dL (0.2-1.0); Calcium 8.6 mg/dL (8.5-10.1); Total Protein 6.7 g/dL (6.4-8.2)
== END | disposition home or self-care (01) ==
LOC: LAB 07:46
PROVIDERS: ATTEND Podiatrist
DX: E11.42 Type 2 diabetes mellitus with diabetic polyneuropathy (principal)
CPT/HCPCS: 36415; 80053; 83036

== ENCOUNTER 2021-08-22 10:54 | Inpatient (IN) | payer MEDICAID ==
[~2021-08-22] VITALS: Ht 177.8 cm; Wt 141.0 kg
[~2021-08-22 10:54] MED LIST changes: -CARV3.1240 PO; -DIGO0.12 PO; -DOCU100T15 PO; -DULA0.5I SC; -DULA1INJ SC; -ENO150SY SC; -FURO40TA4 PO; -LISI2.5T47 PO
[2021-08-22] MEDS ORDERED: NITROGLYCERIN 0.4 MG SL TAB SL PRN ×2 (13:45→14:30)
[2021-08-22] MEDS ORDERED: MORPHINE SULFATE 4 MG/ML SYR/VIAL IV PRN (13:45)
[2021-08-22] MEDS ORDERED: MORPHINE SULFATE INJECTION 2 MG/ML SYRG IV PRN (14:30)
[2021-08-22] MEDS ORDERED: DEXTROSE (50%) 50ML SYRG IV PRN (14:30)
[2021-08-22] MEDS ORDERED: LISI2.5T47 PO (15:06)
[2021-08-22] MEDS ORDERED: FURO40TA4 PO (15:06)
[2021-08-22] MEDS ORDERED: DOCU100T15 PO (15:06)
[2021-08-22] MEDS ORDERED: CARV3.1240 PO (15:06)
[2021-08-22] MEDS ORDERED: DULA1INJ SC (15:06)
[2021-08-22] MEDS ORDERED: dilTIAZem 25 MG/5 ML VIAL IV ONE (15:30)
[2021-08-22] MEDS ORDERED: DIGOXIN (250MCG/ML) 2 ML AMPULE IV ONE (15:30)
[2021-08-22 15:37] LABS: Basophils # (auto) 0.1 10 ^3/uL (0-0.2); Basophils % (auto) 0.7 % (0.0-2.0); Eosinophils # (auto) 0.3 10 ^3/uL (0-0.8); Eosinophils % (auto) 3.8 % (0.0-7.0); Hematocrit 46.9 % (41.0-53.0); Hemoglobin 16.1 g/dL (13.5-17.5); Lymphocytes # (auto) 2.3 10 ^3/uL (0.4-5.4); Lymphocytes % (auto) 25.8 % (10.0-50.0); Mean Corpuscular Hemoglobin 29.2 pg (28.0-32.0); Mean Corpuscular Hgb Conc. 34.4 g/dL (32.0-36.0); Mean Corpuscular Volume 84.9 fL (80.0-100.0); Monocytes # (auto) 0.8 10 ^3/uL (0-1.3); Monocytes % (auto) 8.8 % (0.0-12.0); Neutrophils # (auto) 5.5 10 ^3/uL (1.6-8.6); Neutrophils % (auto) 60.9 % (37.0-80.0); Nucleated Red Blood Cells % 0.2 %; Red Blood Cells 5.53 10^6/uL (4.5-5.90)
[2021-08-22 15:54] LABS: Albumin 3.5 g/dL (3.4-5.0); Calcium 8.9 mg/dL (8.5-10.1); Potassium 3.8 mmol/L (3.5-5.1)
[2021-08-22 16:03] LABS: Bilirubin, Total 0.9 mg/dL (0.2-1.0); Total Protein 6.8 g/dL (6.4-8.2)
[2021-08-22 16:04] LABS: INR 2.15 (0.9-1.15); Partial Thromboplastin Time 35.6 sec (23.6-33.0)
[2021-08-22 17:00] VITALS: BP 126/85
[2021-08-22] MEDS: ACCU-CHEK COMFORT CURVE STRIP VI SCH ×2 (17:23→23:20)
[2021-08-22] MEDS: InsuLIN REG 1unit/0.01ml Soln (100units/ml) SC SCH ×2 (17:24→23:20)
[2021-08-22 20:00] VITALS: BP 115/77
[2021-08-22 22:00] VITALS: BP 115/77
[2021-08-22] MEDS: ATORVASTATIN 20 MG TAB PO SCH (23:02)
[2021-08-22] MEDS: CARVEDILOL 3.125 MG TAB PO SCH (23:03)
[2021-08-23 05:00] VITALS: BP 136/96
[2021-08-23] MEDS: InsuLIN REG 1unit/0.01ml Soln (100units/ml) SC SCH ×3 (06:00→16:38)
[2021-08-23] MEDS: ACCU-CHEK COMFORT CURVE STRIP VI SCH ×3 (06:21→16:37)
[2021-08-23 09:00] VITALS: BP 93/67
[2021-08-23 09:54] VITALS: BP 91/62
[2021-08-23] MEDS: LISINOPRIL 5 MG TAB PO SCH (10:00)
[2021-08-23] MEDS: ASPirin 81 mg TAB PO SCH (10:13)
[2021-08-23] MEDS: DIGOXIN 0.125 MG TAB PO SCH (10:21)
[2021-08-23] MEDS: CARVEDILOL 3.125 MG TAB PO SCH ×2 (10:21→21:56)
[2021-08-23] MEDS ORDERED: FUROSEMIDE 40 MG/4 ML VIAL IV ONE (10:30)
[2021-08-23] MEDS ORDERED: POTASSIUM CHL 20 Meq TABLET PO ONE (10:30)
[2021-08-23 10:55] LABS: Basophils # (auto) 0.1 10 ^3/uL (0-0.2); Basophils % (auto) 0.8 % (0.0-2.0); Eosinophils # (auto) 0.4 10 ^3/uL (0-0.8); Eosinophils % (auto) 4.8 % (0.0-7.0); Hemoglobin 14.8 g/dL (13.5-17.5); Lymphocytes # (auto) 1.7 10 ^3/uL (0.4-5.4); Mean Corpuscular Hemoglobin 28.8 pg (28.0-32.0); Mean Corpuscular Hgb Conc. 33.7 g/dL (32.0-36.0); Mean Corpuscular Volume 85.6 fL (80.0-100.0); Monocytes # (auto) 0.7 10 ^3/uL (0-1.3); Monocytes % (auto) 8.6 % (0.0-12.0); Neutrophils # (auto) 4.8 10 ^3/uL (1.6-8.6); Neutrophils % (auto) 63.8 % (37.0-80.0); Red Blood Cells 5.13 10^6/uL (4.5-5.90); White Blood Cell 7.6 10^3/uL (4.4-10.8)
[2021-08-23 11:06] LABS: Albumin 3.1 g/dL (3.4-5.0); Calcium 8.4 mg/dL (8.5-10.1); Potassium 3.9 mmol/L (3.5-5.1)
[2021-08-23 11:09] LABS: BUN/Creatinine Ratio 23.9; Bilirubin, Total 1.3 mg/dL (0.2-1.0); Total Protein 6.1 g/dL (6.4-8.2)
[2021-08-23 13:00] VITALS: BP 122/58
[2021-08-23 16:51] VITALS: BP 130/105
[2021-08-23] MEDS: FUROSEMIDE 40 MG/4 ML VIAL IV SCH (19:15)
[2021-08-23] MEDS: ATORVASTATIN 20 MG TAB PO SCH (21:57)
[2021-08-23 22:00] VITALS: BP 133/86
[2021-08-24] MEDS: ACCU-CHEK COMFORT CURVE STRIP VI SCH ×4 (00:16→17:21)
[2021-08-24 05:00] VITALS: BP 147/88
[2021-08-24] MEDS: InsuLIN REG 1unit/0.01ml Soln (100units/ml) SC SCH ×4 (06:00→17:21)
[2021-08-24 06:06] LABS: Basophils # (auto) 0.1 10 ^3/uL (0-0.2); Basophils % (auto) 0.8 % (0.0-2.0); Eosinophils # (auto) 0.3 10 ^3/uL (0-0.8); Hematocrit 46.9 % (41.0-53.0); Hemoglobin 16.1 g/dL (13.5-17.5); Lymphocytes # (auto) 1.7 10 ^3/uL (0.4-5.4); Lymphocytes % (auto) 20.3 % (10.0-50.0); Mean Corpuscular Hemoglobin 29.1 pg (28.0-32.0); Mean Corpuscular Hgb Conc. 34.3 g/dL (32.0-36.0); Mean Corpuscular Volume 84.9 fL (80.0-100.0); Monocytes # (auto) 0.8 10 ^3/uL (0-1.3); Monocytes % (auto) 9.6 % (0.0-12.0); Neutrophils # (auto) 5.5 10 ^3/uL (1.6-8.6); Neutrophils % (auto) 65.3 % (37.0-80.0); Nucleated Red Blood Cells % 0.1 %; Red Blood Cells 5.53 10^6/uL (4.5-5.90); Red Cell Distribution Width 13.2 % (11.8-14.3); White Blood Cell 8.5 10^3/uL (4.4-10.8)
[2021-08-24 06:15] LABS: Albumin 3.3 g/dL (3.4-5.0); Calcium 8.7 mg/dL (8.5-10.1); Potassium 3.8 mmol/L (3.5-5.1)
[2021-08-24 06:17] LABS: BUN/Creatinine Ratio 20.6
[2021-08-24 06:20] LABS: Bilirubin, Total 1.4 mg/dL (0.2-1.0); Total Protein 6.6 g/dL (6.4-8.2)
[2021-08-24] MEDS: FUROSEMIDE 40 MG/4 ML VIAL IV SCH ×3 (06:48→18:00)
[2021-08-24 09:00] VITALS: BP 120/77
[2021-08-24] MEDS: LISINOPRIL 5 MG TAB PO SCH (10:00)
[2021-08-24] MEDS: POTASSIUM CHL 20 Meq TABLET PO SCH (10:05)
[2021-08-24] MEDS: ASPirin 81 mg TAB PO SCH (10:05)
[2021-08-24] MEDS: DIGOXIN 0.125 MG TAB PO SCH (10:06)
[2021-08-24] MEDS: CARVEDILOL 3.125 MG TAB PO SCH ×2 (10:07→22:19)
[2021-08-24 13:00] VITALS: BP 112/56
[2021-08-24 17:00] VITALS: BP_SYST 112; BP_SYST 136; BP_DIAS 56; BP_DIAS 89
[2021-08-24 22:00] VITALS: BP 129/89
[2021-08-24] MEDS: ATORVASTATIN 20 MG TAB PO SCH (22:19)
[2021-08-25] VITALS (16 sets, daily range): BP systolic 98–137; BP diastolic 47–95
[2021-08-25] MEDS: ACCU-CHEK COMFORT CURVE STRIP VI SCH ×4 (00:08→18:00)
[2021-08-25] MEDS: InsuLIN REG 1unit/0.01ml Soln (100units/ml) SC SCH ×4 (06:00→18:00)
[2021-08-25 06:35] LABS: Basophils # (auto) 0.1 10 ^3/uL (0-0.2); Basophils % (auto) 0.6 % (0.0-2.0); Eosinophils # (auto) 0.4 10 ^3/uL (0-0.8); Eosinophils % (auto) 3.7 % (0.0-7.0); Hematocrit 46.6 % (41.0-53.0); Lymphocytes % (auto) 20.7 % (10.0-50.0); Mean Corpuscular Hemoglobin 29.2 pg (28.0-32.0); Mean Corpuscular Hgb Conc. 34.2 g/dL (32.0-36.0); Mean Corpuscular Volume 85.4 fL (80.0-100.0); Monocytes # (auto) 0.8 10 ^3/uL (0-1.3); Monocytes % (auto) 8.5 % (0.0-12.0); Neutrophils # (auto) 6.4 10 ^3/uL (1.6-8.6); Neutrophils % (auto) 66.5 % (37.0-80.0); Nucleated Red Blood Cells % 0.2 %; Red Blood Cells 5.46 10^6/uL (4.5-5.90); Red Cell Distribution Width 12.8 % (11.8-14.3); White Blood Cell 9.6 10^3/uL (4.4-10.8)
[2021-08-25] MEDS: FUROSEMIDE 40 MG/4 ML VIAL IV SCH ×2 (06:35→18:00)
[2021-08-25 07:07] LABS: Albumin 3.3 g/dL (3.4-5.0); Potassium 3.9 mmol/L (3.5-5.1)
[2021-08-25 07:11] LABS: BUN/Creatinine Ratio 27.2; Bilirubin, Total 1.5 mg/dL (0.2-1.0); Total Protein 6.5 g/dL (6.4-8.2)
[2021-08-25 07:12] LABS: INR 1.26 (0.9-1.15); Partial Thromboplastin Time 27.1 sec (23.6-33.0)
[2021-08-25] MEDS: ASPirin 81 mg TAB PO SCH (09:50)
[2021-08-25] MEDS: CARVEDILOL 3.125 MG TAB PO SCH ×2 (09:50→22:02)
[2021-08-25] MEDS: DIGOXIN 0.125 MG TAB PO SCH (09:51)
[2021-08-25] MEDS: POTASSIUM CHL 20 Meq TABLET PO SCH (09:51)
[2021-08-25] MEDS: LISINOPRIL 5 MG TAB PO SCH (09:52)
[2021-08-25 10:32] LABS: Free T4 (Free Thyroxine) 2.55 ng/dL (0.89-1.76)
[2021-08-25 10:33] LABS: Free T3 5.69 pg/mL (2.3-4.2)
[2021-08-25] MEDS ORDERED: fentaNYL CITRATE 100 MCG/2 ML VL ONE (10:54)
[2021-08-25] MEDS ORDERED: ANGIOMAX 250 MG VIAL IV ONE (10:54)
[2021-08-25] MEDS ORDERED: HEPARIN SODIUM (PORCINE) 5000 UNITS/ML 1ML VIAL ONE (10:54)
[2021-08-25] MEDS ORDERED: VERAPAMIL 2.5MG/ML INJ 2ML VIAL IV ONE (10:54)
[2021-08-25] MEDS ORDERED: SODIUM CHL 0.9% 0 ML ONE (10:55)
[2021-08-25] MEDS ORDERED: MIDAZOLAM HCL 2MG/2ML 2ml VIAL (1mg/ml) ONE (10:55)
[2021-08-25] MEDS ORDERED: LIDOCAINE 2%HCL (LOCAL ANESTH.) INJ 20ML MDV ONE (10:55)
[2021-08-25] MEDS ORDERED: IOHEXOL 350 MG/ML 100ML IJ ONE (10:58)
[2021-08-25] MEDS ORDERED: DIGO0.12 PO (16:58)
[2021-08-25] MEDS ORDERED: ENOXAPARIN SOD 150 MG/1 ML SYRINGE SC SCH (22:00)
[2021-08-25] MEDS: ATORVASTATIN 20 MG TAB PO SCH (22:02)
[2021-08-26] MEDS: ACCU-CHEK COMFORT CURVE STRIP VI SCH ×4 (00:04→18:00)
[2021-08-26 05:00] VITALS: BP 90/65
[2021-08-26] MEDS: FUROSEMIDE 40 MG/4 ML VIAL IV SCH ×2 (05:57→18:00)
[2021-08-26] MEDS: InsuLIN REG 1unit/0.01ml Soln (100units/ml) SC SCH ×4 (06:32→18:00)
[2021-08-26 08:00] VITALS: BP 135/79
[2021-08-26 09:00] VITALS: BP 126/80
[2021-08-26 09:36] LABS: INR 1.21 (0.9-1.15); Partial Thromboplastin Time 28.3 sec (23.6-33.0)
[2021-08-26] MEDS: CARVEDILOL 3.125 MG TAB PO SCH ×2 (10:00→22:42)
[2021-08-26] MEDS: POTASSIUM CHL 20 Meq TABLET PO SCH (10:00)
[2021-08-26] MEDS: ASPirin 81 mg TAB PO SCH (10:00)
[2021-08-26] MEDS: DIGOXIN 0.125 MG TAB PO SCH (10:00)
[2021-08-26] MEDS: LISINOPRIL 5 MG TAB PO SCH (10:00)
[2021-08-26 10:53] VITALS: BP 128/81
[2021-08-26] MEDS ORDERED: dilTIAZem 25 MG/5 ML VIAL IV ONE (13:15)
[2021-08-26 13:44] LABS: Magnesium 2.3 mg/dL (1.6-2.6)
[2021-08-26 17:00] VITALS: BP 110/73
[2021-08-26] MEDS ORDERED: WARFARIN SODIUM 2.5 MG TAB PO ONE (17:00)
[2021-08-26 22:00] VITALS: BP 109/52
[2021-08-26] MEDS: ATORVASTATIN 20 MG TAB PO SCH (22:42)
[2021-08-27 05:00] VITALS: BP 118/83
[2021-08-27 05:46] LABS: Basophils # (auto) 0.1 10 ^3/uL (0-0.2); Basophils % (auto) 0.8 % (0.0-2.0); Eosinophils # (auto) 0.4 10 ^3/uL (0-0.8); Eosinophils % (auto) 4.5 % (0.0-7.0); Hematocrit 45.9 % (41.0-53.0); Hemoglobin 15.7 g/dL (13.5-17.5); Lymphocytes % (auto) 24.6 % (10.0-50.0); Mean Corpuscular Hgb Conc. 34.2 g/dL (32.0-36.0); Mean Corpuscular Volume 84.8 fL (80.0-100.0); Monocytes # (auto) 0.9 10 ^3/uL (0-1.3); Monocytes % (auto) 10.4 % (0.0-12.0); Neutrophils # (auto) 4.9 10 ^3/uL (1.6-8.6); Neutrophils % (auto) 59.7 % (37.0-80.0); Nucleated Red Blood Cells % 0.1 %; Red Blood Cells 5.41 10^6/uL (4.5-5.90); Red Cell Distribution Width 12.9 % (11.8-14.3); White Blood Cell 8.2 10^3/uL (4.4-10.8)
[2021-08-27] MEDS: InsuLIN REG 1unit/0.01ml Soln (100units/ml) SC SCH ×4 (06:00→17:31)
[2021-08-27 06:04] LABS: Albumin 3.3 g/dL (3.4-5.0); BUN/Creatinine Ratio 23.9; Calcium 8.7 mg/dL (8.5-10.1); Potassium 4.1 mmol/L (3.5-5.1)
[2021-08-27 06:06] LABS: INR 1.12 (0.9-1.15); Partial Thromboplastin Time 26.9 sec (23.6-33.0)
[2021-08-27 06:07] LABS: Bilirubin, Total 1.2 mg/dL (0.2-1.0); Total Protein 6.5 g/dL (6.4-8.2)
[2021-08-27] MEDS: ACCU-CHEK COMFORT CURVE STRIP VI SCH ×4 (06:13→17:31)
[2021-08-27] MEDS: FUROSEMIDE 40 MG/4 ML VIAL IV SCH ×2 (06:13→17:30)
[2021-08-27] MEDS ORDERED: MIDAZOLAM HCL 2MG/2ML 2ml VIAL (1mg/ml) IV ONE (08:15)
[2021-08-27] MEDS ORDERED: LIDOCAINE VISCOUS 2% 15ML UD PO ONE (08:15)
[2021-08-27] MEDS ORDERED: fentaNYL CITRATE 100 MCG/2 ML VL IV ONE (08:15)
[2021-08-27] MEDS ORDERED: diphenhdrAMINE HCL 50 MG/1 ML VL IV ONE (08:15)
[2021-08-27 08:53] VITALS: BP 143/77
[2021-08-27 09:00] VITALS: BP 110/74
[2021-08-27] MEDS: ASPirin 81 mg TAB PO SCH (10:00)
[2021-08-27] MEDS: LISINOPRIL 5 MG TAB PO SCH (10:00)
[2021-08-27] MEDS: POTASSIUM CHL 20 Meq TABLET PO SCH (10:00)
[2021-08-27] MEDS: CARVEDILOL 3.125 MG TAB PO SCH (10:00)
[2021-08-27] MEDS ORDERED: DULA0.5I SC (10:59)
[2021-08-27] MEDS ORDERED: ENOXAPARIN SOD 30 MG/0.3 ML SYRINGE IV ONE (12:35)
[2021-08-27] MEDS ORDERED: ENOXAPARIN SOD 40 MG/0.4 ML SYRINGE SC ONE (12:35)
[2021-08-27] MEDS ORDERED: ENOXAPARIN SOD 100 MG/1 ML SYRINGE SC ONE (12:35)
[2021-08-27] MEDS ORDERED: ENO150SY SC (15:32)
[2021-08-27 17:00] VITALS: BP 134/82
[2021-08-27] MEDS ORDERED: WARFARIN SODIUM 10 MG TAB PO ONE (17:00)
[2021-08-27] MEDS ORDERED: ENOXAPARIN SOD 150 MG/1 ML SYRINGE SC SCH (22:00)
[2021-08-28] MEDS ORDERED: DIGOXIN 0.125 MG TAB PO SCH (10:00)
[2021-08-28] MEDS ORDERED: dilTIAZem 120MG ER CAP PO SCH (14:00)
== END 2021-08-27 17:54 | disposition home health service (06) | DRG 192 ==
LOC: CENTRAL 12:35 → TELE-CENTR 12:48
PROVIDERS: ADMIT Nurse Practitioner Acute Care; ATTEND Internal Medicine
PROC: 5A09357 Assistance with Respiratory Ventilation, Less than 24 Consecutive Hours, Continuous Positive Airway Pressure (ICD-10-PCS; 2021-08-22)
PROC: 5A09357 Assistance with Respiratory Ventilation, Less than 24 Consecutive Hours, Continuous Positive Airway Pressure (ICD-10-PCS; 2021-08-24)
PROC: 4A023N7 Measurement of Cardiac Sampling and Pressure, Left Heart, Percutaneous Approach (ICD-10-PCS; principal; 2021-08-25)
PROC: B211YZZ Fluoroscopy of Multiple Coronary Arteries using Other Contrast (ICD-10-PCS; 2021-08-25)
PROC: B215YZZ Fluoroscopy of Left Heart using Other Contrast (ICD-10-PCS; 2021-08-25)
PROC: 5A09357 Assistance with Respiratory Ventilation, Less than 24 Consecutive Hours, Continuous Positive Airway Pressure (ICD-10-PCS; 2021-08-25)
PROC: 5A09357 Assistance with Respiratory Ventilation, Less than 24 Consecutive Hours, Continuous Positive Airway Pressure (ICD-10-PCS; 2021-08-26)
PROC: B246ZZ4 Ultrasonography of Right and Left Heart, Transesophageal (ICD-10-PCS; 2021-08-27)
PROC: 5A2204Z Restoration of Cardiac Rhythm, Single (ICD-10-PCS; 2021-08-27)
DX: I11.0 Hypertensive heart disease with heart failure (principal); D68.69 Other thrombophilia; I48.20 Chronic atrial fibrillation, unspecified; I50.43 Acute on chronic combined systolic (congestive) and diastolic (congestive) heart failure; E11.9 Type 2 diabetes mellitus without complications; E66.01 Morbid (severe) obesity due to excess calories; G47.33 Obstructive sleep apnea (adult) (pediatric); I25.10 Atherosclerotic heart disease of native coronary artery without angina pectoris; Z20.822 Contact with and (suspected) exposure to COVID-19; I08.1 Rheumatic disorders of both mitral and tricuspid valves; E78.5 Hyperlipidemia, unspecified; Z79.84 Long term (current) use of oral hypoglycemic drugs; Z86.711 Personal history of pulmonary embolism; Z86.718 Personal history of other venous thrombosis and embolism; Z79.01 Long term (current) use of anticoagulants; Z86.73 Personal history of transient ischemic attack (TIA), and cerebral infarction without residual deficits; Z68.41 Body mass index [BMI] 40.0-44.9, adult; Z82.49 Family history of ischemic heart disease and other diseases of the circulatory system; Z83.3 Family history of diabetes mellitus
CPT/HCPCS: 36415; 71045; 76705; 80053; 80162; 82962; 83735; 83880; 84132; 84439; 84443; 84481; 84484; 85025; 85379; 85610; 85730; 93306; 93312; 93458; 93970; 94660; 99152; G0378; J1815; J2250

== ENCOUNTER → 2021-08-22 | Outpatient (CLI) | payer MEDICAID ==
[~2021-08-22] MED LIST changes: +CARV3.1240 PO; +DIGO0.12 PO; +DOCU100T15 PO; +DULA0.5I SC; +DULA1INJ SC; +ENO150SY SC; +FURO40TA4 PO; +LISI2.5T47 PO
== END | disposition home or self-care (01) ==
LOC: LAB 10:45
PROVIDERS: ATTEND Internal Medicine
DX: Z20.822 Contact with and (suspected) exposure to COVID-19 (principal)
CPT/HCPCS: 36415; 87426

== ENCOUNTER → 2021-10-29 | Outpatient (CLI) | payer MEDICAID ==
[~2021-10-29] MED LIST changes: -AMIO200T4 PO; +CARV3.1240 PO; +DIGO0.12 PO; +DOCU100T15 PO; +DULA0.5I SC; +ENO150SY SC; +FURO40TA4 PO; -LISI-275 PO; +LISI2.5T47 PO; -MECL25TA18 PO; -MET50T PO
== END | disposition home or self-care (01) ==
LOC: LAB 09:49
PROVIDERS: ATTEND Internal Medicine
DX: E11.22 Type 2 diabetes mellitus with diabetic chronic kidney disease (principal); I48.20 Chronic atrial fibrillation, unspecified; E55.9 Vitamin D deficiency, unspecified; N18.9 Chronic kidney disease, unspecified
CPT/HCPCS: 82270

== ENCOUNTER 2021-12-10 15:56 | Inpatient (IN) | payer MEDICAID ==
[~2021-12-10] VITALS: Ht 177.8 cm; Wt 144.7 kg
[2021-12-10 17:27] VITALS: BP 105/71
[2021-12-10] MEDS ORDERED: phytonadione 10 MG in SODIUM CHL 0.9% 50 ML IV ONE (17:45)
[2021-12-10] MEDS ORDERED: LACTULOSE 20Gm/30ML SOLN PO PRN (17:45)
[2021-12-10] MEDS ORDERED: LORazepam 0.5 MG TAB PO PRN (18:15)
[2021-12-10] MEDS ORDERED: ONDANSETRON HCL 4 MG/2 ML VIAL IV PRN (18:15)
[2021-12-10] MEDS ORDERED: ACETAMINOPHEN 325 MG TAB PO PRN (18:15)
[2021-12-10] MEDS ORDERED: PANTOPRAZOLE 40 MG/10 ML VIAL INJ IV ONE (18:15)
[2021-12-10] MEDS ORDERED: HYDROcodone-ACET 5/325MG TAB PO PRN (18:15)
[2021-12-10] MEDS ORDERED: HYDROmorphone HCL 2 MG/ML VL/or syr IV PRN (18:15)
[2021-12-10] MEDS ORDERED: DEXTROSE (50%) 50ML SYRG IV PRN (18:30)
[2021-12-10 18:39] LABS: Basophils # (auto) 0.1 10 ^3/uL (0-0.2); Basophils % (auto) 0.8 % (0.0-2.0); Eosinophils # (auto) 0.4 10 ^3/uL (0-0.8); Eosinophils % (auto) 4.5 % (0.0-7.0); Hematocrit 47.2 % (41.0-53.0); Hemoglobin 15.7 g/dL (13.5-17.5); Lymphocytes # (auto) 2.2 10 ^3/uL (0.4-5.4); Lymphocytes % (auto) 23.5 % (10.0-50.0); Mean Corpuscular Hemoglobin 28.1 pg (28.0-32.0); Mean Corpuscular Hgb Conc. 33.2 g/dL (32.0-36.0); Mean Corpuscular Volume 84.7 fL (80.0-100.0); Monocytes # (auto) 0.6 10 ^3/uL (0-1.3); Monocytes % (auto) 5.8 % (0.0-12.0); Neutrophils # (auto) 6.3 10 ^3/uL (1.6-8.6); Neutrophils % (auto) 65.4 % (37.0-80.0); Nucleated Red Blood Cells % 0.1 %; Red Blood Cells 5.57 10^6/uL (4.5-5.90); Red Cell Distribution Width 15.2 % (11.8-14.3); White Blood Cell 9.6 10^3/uL (4.4-10.8)
[2021-12-10] MEDS ORDERED: FURO1TAB33 PO (18:44)
[2021-12-10 18:53] LABS: Albumin 3.5 g/dL (3.4-5.0); BUN/Creatinine Ratio 13.9; Calcium 8.7 mg/dL (8.5-10.1); Potassium 3.9 mmol/L (3.5-5.1)
[2021-12-10 18:58] LABS: INR 1.89 (0.9-1.15)
[2021-12-10 18:59] LABS: Bilirubin, Total 0.4 mg/dL (0.2-1.0); Total Protein 6.9 g/dL (6.4-8.2)
[2021-12-10 19:23] LABS: Free T4 (Free Thyroxine) 0.77 ng/dL (0.89-1.76); T3 Total 1.09 ng/mL (0.60-1.81)
[2021-12-10 20:00] VITALS: BP 102/64
[2021-12-10] MEDS: CARVEDILOL 3.125 MG TAB PO SCH (22:00)
[2021-12-10] MEDS: SODIUM CHLOR 0.9% PF (SALINE LOCK) 10ML VIAL/SYR IV SCH (23:28)
[2021-12-10] MEDS: methIMAzole 5 MG TAB PO SCH (23:29)
[2021-12-10] MEDS: ACCU-CHEK COMFORT CURVE STRIP VI SCH (23:30)
[2021-12-10] MEDS: InsuLIN REG 1unit/0.01ml Soln (100units/ml) SC SCH (23:39)
[2021-12-11 03:53] LABS: Basophils # (auto) 0.1 10 ^3/uL (0-0.2); Eosinophils # (auto) 0.5 10 ^3/uL (0-0.8); Eosinophils % (auto) 5.5 % (0.0-7.0); Hematocrit 45.6 % (41.0-53.0); Hemoglobin 15.5 g/dL (13.5-17.5); Lymphocytes # (auto) 1.9 10 ^3/uL (0.4-5.4); Lymphocytes % (auto) 21.8 % (10.0-50.0); Mean Corpuscular Hemoglobin 28.3 pg (28.0-32.0); Mean Corpuscular Hgb Conc. 34.1 g/dL (32.0-36.0); Mean Corpuscular Volume 83.1 fL (80.0-100.0); Monocytes # (auto) 0.7 10 ^3/uL (0-1.3); Monocytes % (auto) 7.4 % (0.0-12.0); Neutrophils # (auto) 5.7 10 ^3/uL (1.6-8.6); Neutrophils % (auto) 64.3 % (37.0-80.0); Nucleated Red Blood Cells % 0.1 %; Red Blood Cells 5.49 10^6/uL (4.5-5.90); Red Cell Distribution Width 14.9 % (11.8-14.3); White Blood Cell 8.9 10^3/uL (4.4-10.8)
[2021-12-11 04:21] LABS: INR 1.49 (0.9-1.15); Partial Thromboplastin Time 30.9 sec (23.6-33.0)
[2021-12-11] MEDS: SODIUM CHLOR 0.9% PF (SALINE LOCK) 10ML VIAL/SYR IV SCH ×3 (06:09→21:55)
[2021-12-11] MEDS: ACCU-CHEK COMFORT CURVE STRIP VI SCH ×4 (06:10→21:56)
[2021-12-11] MEDS: methIMAzole 5 MG TAB PO SCH ×3 (06:10→21:56)
[2021-12-11] MEDS: InsuLIN REG 1unit/0.01ml Soln (100units/ml) SC SCH ×4 (06:10→21:56)
[2021-12-11] MEDS ORDERED: GOLYTELY 4L KIT PO ONE ×2 (08:00→09:00)
[2021-12-11 09:28] VITALS: BP 124/83
[2021-12-11] MEDS: LISINOPRIL 5 MG TAB PO SCH (10:00)
[2021-12-11] MEDS: DIGOXIN 0.125 MG TAB PO SCH (10:02)
[2021-12-11] MEDS: PANTOPRAZOLE 40 MG/10 ML VIAL INJ IV SCH (10:02)
[2021-12-11] MEDS: ATORVASTATIN 20 MG TAB PO SCH (10:03)
[2021-12-11] MEDS: FUROSEMIDE 40 MG TAB PO SCH (10:03)
[2021-12-11] MEDS: CARVEDILOL 3.125 MG TAB PO SCH ×2 (10:04→21:56)
[2021-12-11 12:53] VITALS: BP 134/95
[2021-12-11 13:02] LABS: Urine Bacteria NONE SEEN /hpf (None Seen); Urine Blood Negative /uL (Negative); Urine Specific Gravity 1.021 (1.001-1.035); Urine WBC 1 /hpf (0 - 3)
[2021-12-11 17:10] VITALS: BP 134/95
[2021-12-11 17:15] VITALS: BP 124/70
[2021-12-11 20:00] VITALS: BP 102/64
[2021-12-11 22:00] VITALS: BP 126/77
[2021-12-12 05:00] VITALS: BP 127/63
[2021-12-12 06:05] LABS: INR 1.16 (0.9-1.15)
[2021-12-12] MEDS: ACCU-CHEK COMFORT CURVE STRIP VI SCH ×4 (06:23→21:05)
[2021-12-12] MEDS: SODIUM CHLOR 0.9% PF (SALINE LOCK) 10ML VIAL/SYR IV SCH ×3 (06:23→21:05)
[2021-12-12] MEDS: methIMAzole 5 MG TAB PO SCH (06:23)
[2021-12-12] MEDS: InsuLIN REG 1unit/0.01ml Soln (100units/ml) SC SCH ×4 (06:24→21:15)
[2021-12-12 09:00] VITALS: BP 105/60
[2021-12-12] MEDS: ATORVASTATIN 20 MG TAB PO SCH (10:00)
[2021-12-12] MEDS: FUROSEMIDE 40 MG TAB PO SCH (10:00)
[2021-12-12] MEDS: LISINOPRIL 5 MG TAB PO SCH (10:00)
[2021-12-12] MEDS: CARVEDILOL 3.125 MG TAB PO SCH ×2 (10:00→21:05)
[2021-12-12] MEDS: DIGOXIN 0.125 MG TAB PO SCH (10:00)
[2021-12-12] MEDS: PANTOPRAZOLE 40 MG/10 ML VIAL INJ IV SCH (10:32)
[2021-12-12 13:00] VITALS: BP 110/55
[2021-12-12] MEDS ORDERED: levoFLOXacin 500 MG TAB PO ONE (13:30)
[2021-12-12] MEDS ORDERED: MIDAZOLAM HCL 2MG/2ML 2ml VIAL (1mg/ml) ONE (14:23)
[2021-12-12] MEDS ORDERED: fentaNYL CITRATE 100 MCG/2 ML VL ONE (14:23)
[2021-12-12] MEDS ORDERED: PROPOFOL 10 MG/ML 20 ML IV ONE ×2 (14:40→14:41)
[2021-12-12] MEDS ORDERED: LIDOCAINE 2% (LOCAL ANESTH.) PF 5ml SDV ONE (14:44)
[2021-12-12] MEDS ORDERED: ONDANSETRON HCL 4 MG/2 ML VIAL IV PRN (15:00)
[2021-12-12 17:00] VITALS: BP 110/73
[2021-12-12 22:00] VITALS: BP 122/87
[2021-12-13 05:00] VITALS: BP 125/86
[2021-12-13] MEDS: SODIUM CHLOR 0.9% PF (SALINE LOCK) 10ML VIAL/SYR IV SCH (05:07)
[2021-12-13] MEDS: ACCU-CHEK COMFORT CURVE STRIP VI SCH ×2 (06:04→13:12)
[2021-12-13] MEDS: InsuLIN REG 1unit/0.01ml Soln (100units/ml) SC SCH ×2 (06:04→11:30)
[2021-12-13 07:30] VITALS: BP 125/86
[2021-12-13 08:48] VITALS: BP 126/82
[2021-12-13] MEDS: CARVEDILOL 3.125 MG TAB PO SCH (09:13)
[2021-12-13] MEDS: PANTOPRAZOLE 40 MG/10 ML VIAL INJ IV SCH (09:13)
[2021-12-13] MEDS: DIGOXIN 0.125 MG TAB PO SCH (09:14)
[2021-12-13] MEDS: FUROSEMIDE 40 MG TAB PO SCH (09:15)
[2021-12-13] MEDS: ATORVASTATIN 20 MG TAB PO SCH (09:16)
[2021-12-13] MEDS: LISINOPRIL 5 MG TAB PO SCH (09:17)
[2021-12-13] MEDS ORDERED: levoFLOXacin 500 MG TAB PO SCH (10:00)
[2021-12-13 11:14] LABS: Hemoglobin 15.7 g/dL (13.5-17.5)
[2021-12-13 12:38] VITALS: BP 126/82
== END 2021-12-13 14:00 | disposition home or self-care (01) | DRG 254 ==
LOC: CENTRAL 17:07 → TELE-CENTR 18:36
PROVIDERS: ADMIT Internal Medicine; ATTEND Internal Medicine Nephrology
PROC: 5A09357 Assistance with Respiratory Ventilation, Less than 24 Consecutive Hours, Continuous Positive Airway Pressure (ICD-10-PCS; 2021-12-11)
PROC: 5A09357 Assistance with Respiratory Ventilation, Less than 24 Consecutive Hours, Continuous Positive Airway Pressure (ICD-10-PCS; 2021-12-12)
PROC: 0DJD8ZZ Inspection of Lower Intestinal Tract, Via Natural or Artificial Opening Endoscopic (ICD-10-PCS; principal; 2021-12-12 14:20)
DX: K64.8 Other hemorrhoids (principal); D68.69 Other thrombophilia; I50.22 Chronic systolic (congestive) heart failure; I11.0 Hypertensive heart disease with heart failure; K92.2 Gastrointestinal hemorrhage, unspecified; E66.01 Morbid (severe) obesity due to excess calories; E05.90 Thyrotoxicosis, unspecified without thyrotoxic crisis or storm; E11.9 Type 2 diabetes mellitus without complications; E78.5 Hyperlipidemia, unspecified; I25.10 Atherosclerotic heart disease of native coronary artery without angina pectoris; I48.91 Unspecified atrial fibrillation; Z20.822 Contact with and (suspected) exposure to COVID-19; Z83.3 Family history of diabetes mellitus; Z86.711 Personal history of pulmonary embolism; Z86.718 Personal history of other venous thrombosis and embolism; Z86.73 Personal history of transient ischemic attack (TIA), and cerebral infarction without residual deficits; Z71.3 Dietary counseling and surveillance; Z90.2 Acquired absence of lung [part of]; Z68.42 Body mass index [BMI] 45.0-49.9, adult
CPT/HCPCS: 36415; 71045; 80053; 81001; 82043; 82306; 82962; 83036; 83880; 84439; 84443; 84480; 85014; 85018; 85025; 85610; 85730; 93005; 94660; C9113; G0378; J1815; J2001; J2250; J2704; J3430

== ENCOUNTER → 2022-01-13 | Outpatient (CLI) | payer MEDICAID | END | disposition home or self-care (01) | LOC: XYW 12:55 | PROVIDERS: ATTEND Internal Medicine | DX: I08.1 Rheumatic disorders of both mitral and tricuspid valves (principal); I50.42 Chronic combined systolic (congestive) and diastolic (congestive) heart failure | CPT/HCPCS: 93306 ==

== ENCOUNTER → 2022-01-20 | Outpatient (CLI) | payer MEDICAID ==
[2022-01-20 10:07] LABS: Basophils # (auto) 0.1 10 ^3/uL (0-0.2); Basophils % (auto) 0.8 % (0.0-2.0); Eosinophils # (auto) 0.4 10 ^3/uL (0-0.8); Eosinophils % (auto) 4.7 % (0.0-7.0); Hematocrit 45.9 % (41.0-53.0); Hemoglobin 15.1 g/dL (13.5-17.5); Lymphocytes # (auto) 1.9 10 ^3/uL (0.4-5.4); Lymphocytes % (auto) 25.3 % (10.0-50.0); Monocytes # (auto) 0.5 10 ^3/uL (0-1.3); Monocytes % (auto) 6.3 % (0.0-12.0); Neutrophils # (auto) 4.8 10 ^3/uL (1.6-8.6); Neutrophils % (auto) 62.9 % (37.0-80.0); Nucleated Red Blood Cells % 0.1 %; Red Cell Distribution Width 15.1 % (11.8-14.3); White Blood Cell 7.7 10^3/uL (4.4-10.8)
== END | disposition home or self-care (01) ==
LOC: LAB 08:29
PROVIDERS: ATTEND Student in an Organized Health Care Education/Training Program
DX: K64.8 Other hemorrhoids (principal); E03.9 Hypothyroidism, unspecified
CPT/HCPCS: 36415; 84443; 85025

== ENCOUNTER → 2022-03-04 | Outpatient (CLI) | payer MEDICAID | END | disposition home or self-care (01) | LOC: LAB 07:55 | PROVIDERS: ATTEND Internal Medicine | DX: I48.91 Unspecified atrial fibrillation (principal) | CPT/HCPCS: 36415; 80162 ==

== ENCOUNTER → 2022-08-10 | Outpatient (CLI) | payer MEDICAID | END | disposition home or self-care (01) | LOC: LAB 09:59 | PROVIDERS: ATTEND Student in an Organized Health Care Education/Training Program | DX: E11.42 Type 2 diabetes mellitus with diabetic polyneuropathy (principal) | CPT/HCPCS: 36415; 82043; 83036 ==

== ENCOUNTER 2024-09-19 06:45 | Inpatient (IN) | payer OTHER, MEDICAID ==
[~2024-09-19] VITALS: Ht 177.8 cm; Wt 140.5 kg
[~2024-09-19 06:45] MED LIST changes: +WARF-114 PO; -WARF7.5T20 PO
--- NOTE | 2024-09-19 07:30 | ED.PDOC ---
Musculoskeletal HPI Comments 64 year old male presents to the ED with chief complaint of leg pain/wound check. Patient reports that he has been experiencing left lower leg pain, redness, and swelling for the past week with an apparent wound to the lower leg. Patient relays that he has also been experiencing SOB since before his leg pain, but he does have history of CHF and COPD. Patient states he takes Coumadin for A-Fib. Patient denies any chest pain, dizziness, headache, N/V, abdominal pain, numbness, or weakness. Chief Complaint: Wound Check Time Seen by MD: 07:26 Primary Care Provider: ANA Canales Notes: Nurses Notes, Medications, Allergies Allergies: Coded Allergies: NO KNOWN ALLERGIES (Unverified , 05/27/21) Home Meds Active Scripts Enoxaparin Sodium (Lovenox) 150 Mg/1 Ml Ij, 140 MG SC Q12HR, #10 INJ Prov:CHIQUITA CABAN MD 08/27/21 Warfarin Sodium (Warfarin Sodium) 7.5 Mg Tab, 7.5 MG PO DAILY, #30 TAB Prov:CHIQUITA CABAN MD 09/20/20 Reported Medications Dulaglutide (Trulicity) 1.5 Mg/0.5 Ml Inj, 1.5 MG SC QWEEKLY, INJ 08/27/21 Digoxin (Digoxin) 125 Mcg Tab, 125 MCG PO DAILY 08/25/21 Docusate Sodium (Docusate Sodium) 100 Mg Tab, 100 MG PO BIDP PRN for FOR CONSTIPATION 08/22/21 Furosemide (Furosemide) 40 Mg Tab, 40 MG PO DAILY 08/22/21 Carvedilol (Carvedilol) 3.125 Mg Tab, 3.125 MG PO BID for 30 Days, MG 08/22/21 Lisinopril (Lisinopril) 2.5 Mg Tab, 2.5 MG PO DAILY 08/22/21 Atorvastatin Calcium (Lipitor) 20 Mg Tab, 1 TAB PO DAILY 09/06/20 Metformin Hydrochloride (Metformin Hcl) 500 Mg Tab, 500 MG PO DAILY 09/06/20 Information Source: Patient, Spouse Mode of Arrival: Wheelchair Location: Left Extremity Location: Leg Timing: Weeks Prehospital treatment: None Severity: Moderate Able to Move Extremity: Yes Bear Weight: Limited Pain: Moderate Mechanism: Spontaneous Circumstances: Spontaneous Onset of Symptoms: Spontaneous Symptoms: Swelling, Pain, Erythema DVT Risk Factors: CHF Last Tetanus: Unknown Associated signs and symptoms: Leg pain Past Medical History PAST MEDICAL HISTORY: AFIB, CHF, COPD, DM, High Lipids, HTN Surgical History (Other): Cardiac ablasion Family History Family History: Reviewed,noncontributory to illness, No family hx ofKidnfanny rajan, Family hx of DM, Family hx of heart satinder Social History Smoker: Non-Smoker Alcohol: Denies ETOH Use Drugs: Denies Drug Use Lives In: Home Constitutional: denies: chills, diaphoresis, fatigue, fever, malaise, sweats, weakness, others EENTM: denies: blurred vision, double vision, ear bleeding, ear discharge, ear drainage, ear pain, ear ringing, eye pain, eye redness, hearing loss, mouth pain, mouth swelling, nasal discharge, nose bleeding, nose congestion, nose pain, photophobia, tearing, throat pain, throat swelling, voice changes, others Respiratory: reports: shortness of breath; denies: cough, hemoptysis, orthopnea, SOB at rest, SOB with excertion, stridor, wheezing, others Cardiovascular: reports: edema; denies: chest pain, dizzy spells, diaphoresis, Dyspnea on exertion, irregular heart beat, left arm pain, lightheadedness, palpitations, PND, syncope, others Gastrointestinal: denies: abdomen distended, abdominal pain, blood streaked bowels, constipated, diarrhea, dysphagia, difficulty swallowing, hematemesis, melena, nausea, poor appetite, poor fluid intake, rectal bleeding, rectal pain, vomiting, others Genitourinary: denies: burning, dysuria, flank pain, frequency, hematuria, incontinence, penile discharge, penile sore, pain, testicle pain, testicle swelling, urgency, others Neurological: denies: dizziness, fainting, headache, left sided numbness, left sided weakness, numbness, paresthesia, pre-existing deficit, right sided numbness, right sided weakness, seizure, speech problems, tingling, tremors, weakness, others Musculoskeletal: denies: back pain, gout, joint pain, joint swelling, muscle pain, muscle stiffness, neck pain, others Integumetry: reports: change in color (Redness to left lower leg), wounds (Left lower leg wound); denies: bruises, change in hair/nails, dryness, laceration, lesions, lumps, rash, others Allergic/Immunocompromised: denies: Difficulty Healing, Frequent Infections, Hives, Itching, others Hematologic/Lymphatic: denies: anemia, blood clots, easy bleeding, easy bruising, swollen glands, others Endocrine: denies: excessive hunger, excessive sweating, excessive thirst, excessive urination, flushing, intolerance to cold, intolerance to heat, unexplained weight gain, unexplained weight loss, others Psychiatric: denies: anxiety, bipolar disorder, depression, hopeless, panic disorder, schizophrenia, sleepless, suicidal, others All Other Systems: Reviewed and Negative Physical Exam General Appearance: Moderate Distress, Normal HEENT: Normal ENT Inspection, PERRL/EOMI Neck: Full Range of Motion, Non-Tender, Normal, Normal Inspection Respiratory: Chest Non-Tender, Lungs Clear, No Accessory Muscle Use, No Respiratory Distress, Normal Breath Sounds Cardiovascular: No Edema, No JVD, No Murmur, No Gallop, Normal Peripheral Pulses, Regular Rate/Rhythm Breast Exam: Deferred Gastrointestinal: No Organomegaly, Non Tender, No Pulsatile Mass, Normal Bowel Sounds, Soft Genitalia: Deferred Pelvic: Deferred Rectal: Deferred Extremities: Swelling (Left lower extremity with redness) Musculoskeletal : Apperance: Normal Neurologic: Alert, religion instructor II-XII nml as Tested, No Motor Deficits, Normal Affect, Normal Mood, No Sensory Deficits Cerebellar Function: NOT DONE Reflexes: NOT DONE Skin: Dry, Normal Color, Warm Peripheral Pulses: 3+ Radial (R), 3+ Radial (L) Lymphatic: No Adenopathy Was a procedure done? Was a procedure done?: No Differential Diagnosis EXT Differential Diagnosis: Cellulitis, CHF, Deep Vein Thrombosis X-Ray, Labs, Meds, VS Vital Signs Date Time Temp Pulse Resp B/P (MAP) Pulse Ox O2 Delivery O2 Flow Rate FiO2 09/19/24 07:45 94 16 99 Room Air* 0 21 09/19/24 07:45 98.2 94 16 135/84 (101) 99 98.2 09/19/24 07:11 98.2 94 20 135/77 (96) 97 98.2 Lab Test 09/19/24 07:37 Range/Units White Blood Count 20.3 H 4.4-10.8 10^3/uL Red Blood Count 5.62 4.5-5.90 10^6/uL Hemoglobin 16.8 13.5-17.5 g/dL Hematocrit 48.3 41.0-53.0 % Mean Corpuscular Volume 85.9 80.0-100.0 fL Mean Corpuscular Hemoglobin 30.0 28.0-32.0 pg Mean Corpuscular Hemoglobin Concent 34.9 32.0-36.0 g/dL Red Cell Distribution Width 14.1 11.8-14.3 % Platelet Count 316 140-450 10^3/uL Mean Platelet Volume 7.6 6.9-10.8 fL Neutrophils (%) (Auto) 83.9 H 37.0-80.0 % Lymphocytes (%) (Auto) 8.6 L 10.0-50.0 % Monocytes (%) (Auto) 7.0 0.0-12.0 % Eosinophils (%) (Auto) 0.1 0.0-7.0 % Basophils (%) (Auto) 0.4 0.0-2.0 % Neutrophils # (Auto) 17.0 H 1.6-8.6 10 ^3/uL Lymphocytes # (Auto) 1.7 0.4-5.4 10 ^3/uL Monocytes # (Auto) 1.4 H 0-1.3 10 ^3/uL Eosinophils # (Auto) 0 0-0.8 10 ^3/uL Basophils # (Auto) 0.1 0-0.2 10 ^3/uL Nucleated Red Blood Cells 0.2 % Sodium Level 140 136-145 mmol/L Potassium Level 3.8 3.5-5.1 mmol/L Chloride Level 107 98-107 mmol/L Carbon Dioxide Level 23 20-31 mmol/L Anion Gap 10 5-15 Blood Urea Nitrogen 11 9-23 mg/dL Creatinine 1.26 0.700-1.30 mg/dL Glomerular Filtration Rate Calc 64 >90 mL/min BUN/Creatinine Ratio 8.7 L 10.0-20.0 Serum Glucose 141 H 74-106 mg/dL Calcium Level 10.1 8.7-10.4 mg/dL Troponin I High Sensitivity 3 L </=54 ng/L B-Type Natriuretic Peptide 41.01 0-100 pg/mL Current Medications Medications (Trade) Dose Ordered Sig/Lacie Route Start Time Stop Time Status Last Admin Piperacillin Sod/ Tazobactam Sod 100 ml @ 100 mls/hr ONCE ONCE IV 09/19/24 07:30 09/19/24 08:29 DC 09/19/24 07:49 Clindamycin Phosphate 50 ml @ 50 mls/hr ONCE ONCE IV 09/19/24 07:30 09/19/24 08:29 DC 09/19/24 09:08 Ondansetron HCl (Zofran) 4 mg ONCE ONCE IV 09/19/24 09:15 09/19/24 09:16 DC 09/19/24 09:07 Patient alert. Complaining of left lower extremity swelling with redness. Vitals stable. Answering all questions. WBC elevated. Hemoglobin within normal limits. Blood cultures. Was given Zosyn. Was given clindamycin. Possible CHF. Was given Lasix. Reviewed his history. EKG reviewed does not show any acute changes. Explained to the patient. Continue cardiac monitoring. Ultrasound reviewed does not show any acute changes. BNP within normal limits. Blood sugar slightly elevated. Chest x-ray reviewed does show pleural effusion. Time of 1ST Reevaluation: 08:26 Reevaluation 1ST: Unchanged Patient Education/Counseling: Diagnosis, Treatment Family Education/Counseling: Diagnosis, Treatment Additional Information Previous visit documents reviewed: 12/10/21 rectal bleed The following tests were ordered, and results were reviewed by me: Additional Information was gathered from interviewing the following independent historians: I reviewed and agreed with the following test results read by other providers: I discussed treatment and results with medical personnel and: Patient and Departure 1 Departure Time of Disposition: 08:08 Impression: Primary Impression: CHF (congestive heart failure) Qualified Codes: I50.43 - Acute on chronic combined systolic (congestive) and diastolic (congestive) heart failure Additional Impressions: Cellulitis Qualified Codes: L03.116 - Cellulitis of left lower limb Uncontrolled diabetes mellitus Qualified Codes: E13.65 - Other specified diabetes mellitus with hyperglycemia Disposition: ADMITTED INPATIENT Admit to: Med Surg Condition: Guarded Critical Care Note Critical Care Time?: Yes (90 min-critical care time only) Critical care comment: Shortness a breath CHF cellulitis continue to monitor Stability Stability form required: No Heart Score Heart Score: Heart Score Response (Comments) Value History Moderate Suspicious 1 EKG Normal 0 Age <45 0 Risk Factors >3 or Hx ASHD 2 Troponin Normal limit 0 Total 3 I personally scribed for SON ALEXIS MD ([email or web address]) on 09/19/24 at 07:29. Electronically submitted by Blas Monroe ([email or web address]). SON ALEXIS MD Sep 19, 2024 07:29
[2024-09-19 07:45] VITALS: PULSE 94; RESP 16; O2SAT 99
[2024-09-19] MEDS: PIPERACILLIN-TAZOB 3.375GM 100 ML IV ONE (07:49)
[2024-09-19 07:57] LABS: Basophils # (auto) 0.1 10 ^3/uL (0-0.2); Basophils % (auto) 0.4 % (0.0-2.0); Eosinophils # (auto) 0 10 ^3/uL (0-0.8); Eosinophils % (auto) 0.1 % (0.0-7.0); Hematocrit 48.3 % (41.0-53.0); Hemoglobin 16.8 g/dL (13.5-17.5); Lymphocytes # (auto) 1.7 10 ^3/uL (0.4-5.4); Lymphocytes % (auto) 8.6 % (10.0-50.0); Mean Corpuscular Hgb Conc. 34.9 g/dL (32.0-36.0); Mean Corpuscular Volume 85.9 fL (80.0-100.0); Monocytes # (auto) 1.4 10 ^3/uL (0-1.3); Neutrophils % (auto) 83.9 % (37.0-80.0); Nucleated Red Blood Cells % 0.2 %; Platelet Count (auto) 316 10^3/uL (140-450); Red Blood Cells 5.62 10^6/uL (4.5-5.90); Red Cell Distribution Width 14.1 % (11.8-14.3); White Blood Cell 20.3 10^3/uL (4.4-10.8)
[2024-09-19 08:02] LABS: Chloride 107 mmol/L (98-107); Potassium 3.8 mmol/L (3.5-5.1); Sodium 140 mmol/L (136-145)
[2024-09-19 08:03] LABS: Anion Gap 10 (5-15); Calcium 10.1 mg/dL (8.7-10.4); Carbon Dioxide 23 mmol/L (20-31)
[2024-09-19 08:08] LABS: BUN/Creatinine Ratio 8.7 (10.0-20.0); Blood Urea Nitrogen 11 mg/dL (9-23)
[2024-09-19 08:10] LABS: Glucose 141 mg/dL (74-106)
--- NOTE | 2024-09-19 08:48 | DVH ---
US LT Lower DVT HISTORY: dvt COMPARISON: None TECHNIQUE: Duplex Doppler evaluation of the deep venous system of the lower extremity from the common femoral veins, superficial femoral vein, great saphenous vein, deep femoral vein, popliteal vein, an d calf veins, including color Doppler and spectral/pulsed waveform analysis, was performed. FINDINGS: Left: - Common femoral vein: Compressible - Deep femoral vein: Compressible - Femoral vein: Compressible - Popliteal vein: Compressible - Posterior tibial vein: Waveforms present - Peroneal vein: Waveforms present - Other: Nothing IMPRESSION: No left lower extremity deep venous thrombosis.
[2024-09-19] MEDS: ONDANSETRON HCL 4 MG/2 ML VIAL IV ONE ×3 (09:07→17:47)
[2024-09-19] MEDS: CLINDAMYCIN 600MG IV 50 ML IV ONE (09:08)
--- NOTE | 2024-09-19 09:38 | DVH ---
CHEST RADIOGRAPH Indication: sob Technique: Single frontal view of the chest was obtained COMPARISON: CXRP on DOS: 12/12/21, CHEST PORTABLE on DOS: 12/12/21, CXR1 on DOS: 12/10/21, CHEST XRAY 1 V IEW on DOS: 12/10/21, CHEST PORTABLE on DOS: 08/22/21 FINDINGS: Lines and Tubes: None Lungs: Clear Pleura: Small left pleural effusion. No pneumothorax. Cardiomediastinal contours: Unremarkable Bones: Unremarkable IMPRESSION: Small left pleural effusion.
[2024-09-19] MEDS: MORPHINE SULFATE 4 MG/ML SYR/VIAL IV ONE (11:48)
[2024-09-19] MEDS ORDERED: ACETAMINOPHEN 325 MG TAB PO PRN (19:00)
[2024-09-19] MEDS ORDERED: DOCUSATE SOD 100 MG CAP PO PRN (19:00)
[2024-09-19] MEDS ORDERED: NITROGLYCERIN 0.4 MG SL TAB SL PRN (19:00)
[2024-09-19] MEDS ORDERED: MORPHINE SULFATE INJ 2 MG/ml SYRG IV PRN ×2 (19:00)
[2024-09-19] MEDS: FUROSEMIDE 40 MG/4 ML VIAL IV SCH (19:00)
[2024-09-19] MEDS: METOCLOPRAMIDE HCL 5MG/ml INJ 2ml VIAL IV ONE (19:02)
[2024-09-19 20:12] LABS: INR 1.97 (0.9-1.15); Prothrombin Time 19.5 sec (9.3-11.8)
[2024-09-19 20:14] VITALS: PULSE 96; RESP 17; O2SAT 99
[2024-09-19] MEDS ORDERED: WARFARIN SODIUM 1 MG TAB PO ONE (20:45)
[2024-09-19] MEDS: ceFAZolin 1GM/50ML 50 ML IV SCH (23:01)
[2024-09-19] MEDS: ONDANSETRON HCL 4 MG/2 ML VIAL IV PRN (23:01)
[2024-09-19] MEDS: ASCORBIC ACID 500 MG TAB PO SCH (23:20)
[2024-09-19] MEDS: WARFARIN SODIUM 1 MG TAB PO ONE (23:21)
[2024-09-20] MEDS: AMIODARONE BOLUS KIT 100 ML IV ONE (04:01)
[2024-09-20] MEDS: AMIODARONE 360mg/200mL PREMIX 200 ML IV ONE ×2 (04:21→08:56)
[2024-09-20 05:18] LABS: Basophils # (auto) 0 10 ^3/uL (0-0.2); Basophils % (auto) 0.1 % (0.0-2.0); Eosinophils # (auto) 0 10 ^3/uL (0-0.8); Eosinophils % (auto) 0.1 % (0.0-7.0); Hematocrit 48.7 % (41.0-53.0); Hemoglobin 17.1 g/dL (13.5-17.5); Lymphocytes # (auto) 1.1 10 ^3/uL (0.4-5.4); Lymphocytes % (auto) 5.6 % (10.0-50.0); Mean Corpuscular Hemoglobin 30.3 pg (28.0-32.0); Mean Corpuscular Hgb Conc. 35.2 g/dL (32.0-36.0); Mean Corpuscular Volume 86.1 fL (80.0-100.0); Monocytes # (auto) 1.5 10 ^3/uL (0-1.3); Monocytes % (auto) 8.1 % (0.0-12.0); Neutrophils # (auto) 16.3 10 ^3/uL (1.6-8.6); Neutrophils % (auto) 86.1 % (37.0-80.0); Nucleated Red Blood Cells % 0.3 %; Platelet Count (auto) 314 10^3/uL (140-450); Red Blood Cells 5.65 10^6/uL (4.5-5.90); Red Cell Distribution Width 14.3 % (11.8-14.3); White Blood Cell 18.9 10^3/uL (4.4-10.8)
[2024-09-20 05:28] LABS: INR 1.92 (0.9-1.15); Prothrombin Time 19.1 sec (9.3-11.8)
[2024-09-20 05:45] LABS: Alanine Aminotransferase 23 U/L (7-40); Albumin 4.6 g/dL (3.2-4.8); Alkaline Phosphatase 78 U/L (46-116); Anion Gap 12 (5-15); Aspartate Aminotransferase 27 U/L (13-40); BUN/Creatinine Ratio 15.9 (10.0-20.0); Blood Urea Nitrogen 21 mg/dL (9-23); Calcium 9.8 mg/dL (8.7-10.4); Carbon Dioxide 23 mmol/L (20-31); Potassium 3.5 mmol/L (3.5-5.1); Sodium 142 mmol/L (136-145); Total Protein 7.5 g/dL (5.7-8.2)
[2024-09-20 05:51] LABS: Bilirubin, Total 1.3 mg/dL (0.2-1.0); Chloride 107 mmol/L (98-107); Glucose 152 mg/dL (74-106)
[2024-09-20 06:00] VITALS: PULSE 125; RESP 17; O2SAT 93
--- NOTE | 2024-09-20 06:41 | ECG ---
[facility] Test Date: 2024-09-20 Test Time: 03:21:59 Pat Name: PRAVEEN TYSON Department: ED Room: 0251T Gender: M Director Process Improvement: MARELY : 1960 Requested By: SON ALEXIS Order Number: [id number] Reading MD: Korey Byrd Measurements Intervals [place] Rate: 170 P: 0 IN: 0 QRS: 37 QRSD: 83 T: 91 QT: 281 QTc: 473 Interpretive Statements Atrial fibrillation with rapid V-rate Abnormal R-wave progression, early transition ST depression, probably rate related Electronically Signed On 09-20-2024 22:43:00 PDT by Korey Byrd Please click the below link to view image of tracing.
[2024-09-20 07:30] VITALS: PULSE 113; RESP 21; O2SAT 93
[2024-09-20] MEDS: MULTIPLE VITAMIN TAB PO SCH (10:06)
[2024-09-20] MEDS: ZINC SULFATE 220mg CAP or TAB PO SCH (10:06)
[2024-09-20] MEDS: HYDROcodone-ACET 5/325MG TAB PO PRN (10:39)
--- NOTE | 2024-09-20 12:02 | DVHINCON2 ---
Date Seen: Sep 20, 2024 Referring Physician MD Carlitos Reason for Consultation CHF History of Present Illness This is a pleasant 64-year-old man who presented to the emergency room with a chief complaint of wound check. The patient reports he developed left lower extremity swelling, pain, and erythema since Wednesday. The patient with significant cardiac history underwent a 12 lead electrocardiogram revealing an atrial fibrillation rhythm with rapid ventricular rate in the 170s bpm for which he was initiated on an amiodarone drip per pharmacy protocol. At time of assessment the patient continue to be a an AFib rhythm with RVR up to the 150s bpm. Follows up in the outpatient setting with Dr. Byrd who has referred him to an software development specialist for a second cardiac ablation evaluation. Denies chest pain, palpitations, diaphoresis, SOB, dizziness, or syncopal events. Significant medical history includes permanent atrial fibrillation stage IV on warfarin/digoxin therapy, history of unsuccessful DCCV on 09/2021, history of unsuccessful cardiac ablation at [facility] with Dr. Blum on 2021, nonischemic HFrEF with LVEF at 40%, hypertension, dyslipidemia, history of PE/LLE DVT/Right subclavian DVT, pre-diabetes, history of CVA, obstructive sleep apnea on CPAP at night, and morbid obesity. Past Medical History Past medical history reviewed. No other significant than mentioned above. Past Surgical History Unsuccessful DCCV, 2021 Unsuccessful cardiac ablation, 2021 Family History: Diabetes mellitus G8 MOTHER G8 FATHER G8 BROTHER FH: congestive heart failure G8 FATHER Family history: Diabetes mellitus G8 MOTHER G8 FATHER G8 BROTHER Family History Family history reviewed. Social History Denies the use of illicit drugs, alcohol, or tobacco use. Allergies: Coded Allergies: NO KNOWN ALLERGIES (Unverified , 05/27/21) Home Meds Active Scripts Enoxaparin Sodium (Lovenox) 150 Mg/1 Ml Ij, 140 MG SC Q12HR, #10 INJ Prov:CHIQUITA CABAN MD 08/27/21 Warfarin Sodium (Warfarin Sodium) 7.5 Mg Tab, 7.5 MG PO DAILY, #30 TAB Prov:CHIQUITA CABAN MD 09/20/20 Reported Medications Dulaglutide (Trulicity) 1.5 Mg/0.5 Ml Inj, 1.5 MG SC QWEEKLY, INJ 08/27/21 Digoxin (Digoxin) 125 Mcg Tab, 125 MCG PO DAILY 08/25/21 Docusate Sodium (Docusate Sodium) 100 Mg Tab, 100 MG PO BIDP PRN for FOR CONSTIPATION 08/22/21 Furosemide (Furosemide) 40 Mg Tab, 40 MG PO DAILY 08/22/21 Carvedilol (Carvedilol) 3.125 Mg Tab, 3.125 MG PO BID for 30 Days, MG 08/22/21 Lisinopril (Lisinopril) 2.5 Mg Tab, 2.5 MG PO DAILY 08/22/21 Atorvastatin Calcium (Lipitor) 20 Mg Tab, 1 TAB PO DAILY 09/06/20 Metformin Hydrochloride (Metformin Hcl) 500 Mg Tab, 500 MG PO DAILY 09/06/20 Home Meds Home medications reviewed. Current Medications Current Medications Medications (Trade) Dose Ordered Sig/Lacie Route PRN Reason Start Time Stop Time Status Last Admin Acetaminophen/ Hydrocodone Bitart ([place] 5/325MG Tab) 1 tab Q4HP PRN PO MODERATE PAIN (4-6 PAIN SCALE) 09/19/24 19:00 09/20/24 10:39 Ondansetron HCl (Zofran) 4 mg Q4HP PRN IV NAUSEA / VOMITING 09/19/24 19:00 09/19/24 23:01 Docusate Sodium (Colace Capsule) 100 mg BIDPRN PRN PO FOR CONSTIPATION 09/19/24 19:00 Zinc Sulfate 220 mg DAILY PO 09/20/24 10:00 09/20/24 10:06 Ascorbic Acid (Vitamin C Tablet) 500 mg BID PO 09/19/24 22:00 09/20/24 10:06 Multivitamins (Mvi Tab) 1 tab DAILY PO 09/20/24 10:00 09/20/24 10:06 Acetaminophen (Tylenol Tablet) 650 mg Q6HP PRN PO PAIN SCALE 1-3 OR TEMP>100.4 09/19/24 19:00 Morphine Sulfate 2 mg Q4HPRN PRN IV SEVERE PAIN (7-10 PAIN SCALE) 09/19/24 19:00 Nitroglycerin (Ntrostat Sublingual) 0.4 mg Q5MINP PRN SL FOR CHEST PAIN 09/19/24 19:00 Morphine Sulfate 2 mg Q30M PRN IV FOR CHEST PAIN 09/19/24 19:00 Furosemide (Lasix Injection) 40 mg BIDD IV 09/19/24 19:00 09/20/24 06:34 Cefazolin Sodium 50 ml @ 100 mls/hr Q8HR IV 09/19/24 22:00 09/20/24 06:00 Warfarin Sodium (Coumadin Per Rx Protocol) RX PROTOCOL PER PHARMACY PO 09/19/24 19:00 Review of Systems Constitutional: No symptom reported Ears, Nose, & Throat: No symptom reported Eyes: No symptom reported Neurological: No symptoms reported Pulmonary/Respiratory: No symptom reported Cardiovascular: No symptom reported Gastrointestinal: No symptom reported Genitourinary: No symptom reported Musculoskeletal: LLE edema/erythema Skin: No symptom reported Psychiatric: No symptom reported Endocrine: No symptom reported Hemotologic/Lymphatic: No symptom reported Vital Signs Vital Signs Date Time Temp Pulse Resp B/P (MAP) Pulse Ox O2 Delivery O2 Flow Rate FiO2 09/20/24 11:26 98.2 145 18 130/77 (94) 97 98.2 09/20/24 06:00 Room Air* 0 21 Physical Exam General Appearance: Cooperative. Well developed. Morbidly obese. Mild acute distress Head Exam: Normal inspection Neck Exam: Normal inspection. Non-tender. Normal alignment Pulmonary/Respiratory: Chest non-tender. Diminished bilateral breath sounds Cardiovascular/Chest: Irregularly irregular rate and rhythm. AFib with uncontrolled rate. No murmurs. No JVD. Peripheral Pulses: 2+ Radial (R). 2+ Radial (L). 2+ Pedal (R). 2+ Pedal (L) Abdominal Exam: Normal bowel sounds. Soft. Nontender. No hepatospenomegaly. No masses Ankle Exam: Left ankle edema Lower extremities: Left lower extremity nonpitting edema/erythema Neuro/Mental Status: A&O x4. Coherent Thoughts/Psych: Normal thought pattern. Appropriate mood and affect. Good kingsley gement and insight Appearance: Mild acute distress Skin Exam: Erythema to left lower extremity Labs/Diagnostic Data Labs Test 09/20/24 04:48 09/19/24 07:37 Range/Units White Blood Count 18.9 H 4.4-10.8 10^3/uL Red Blood Count 5.65 4.5-5.90 10^6/uL Hemoglobin 17.1 13.5-17.5 g/dL Hematocrit 48.7 41.0-53.0 % Mean Corpuscular Volume 86.1 80.0-100.0 fL Mean Corpuscular Hemoglobin 30.3 28.0-32.0 pg Mean Corpuscular Hemoglobin Concent 35.2 32.0-36.0 g/dL Red Cell Distribution Width 14.3 11.8-14.3 % Platelet Count 314 140-450 10^3/uL Mean Platelet Volume 7.6 6.9-10.8 fL Neutrophils (%) (Auto) 86.1 H 37.0-80.0 % Lymphocytes (%) (Auto) 5.6 L 10.0-50.0 % Monocytes (%) (Auto) 8.1 0.0-12.0 % Eosinophils (%) (Auto) 0.1 0.0-7.0 % Basophils (%) (Auto) 0.1 0.0-2.0 % Neutrophils # (Auto) 16.3 H 1.6-8.6 10 ^3/uL Lymphocytes # (Auto) 1.1 0.4-5.4 10 ^3/uL Monocytes # (Auto) 1.5 H 0-1.3 10 ^3/uL Eosinophils # (Auto) 0 0-0.8 10 ^3/uL Basophils # (Auto) 0 0-0.2 10 ^3/uL Nucleated Red Blood Cells 0.3 % Prothrombin Time 19.1 H 9.3-11.8 sec Prothrombin Time INR 1.92 H 0.9-1.15 Sodium Level 142 136-145 mmol/L Potassium Level 3.5 3.5-5.1 mmol/L Chloride Level 107 98-107 mmol/L Carbon Dioxide Level 23 20-31 mmol/L Anion Gap 12 5-15 Blood Urea Nitrogen 21 # 9-23 mg/dL Creatinine 1.32 H 0.700-1.30 mg/dL Glomerular Filtration Rate Calc 61 >90 mL/min BUN/Creatinine Ratio 15.9 10.0-20.0 Serum Glucose 152 H 74-106 mg/dL Calcium Level 9.8 8.7-10.4 mg/dL Total Bilirubin 1.3 H 0.2-1.0 mg/dL Aspartate Amino Transferase (AST) 27 13-40 U/L Alanine Aminotransferase (ALT) 23 7-40 U/L Alkaline Phosphatase 78 46-116 U/L Total Protein 7.5 5.7-8.2 g/dL Albumin 4.6 3.2-4.8 g/dL Troponin I High Sensitivity 3 L </=54 ng/L B-Type Natriuretic Peptide 41.01 0-100 pg/mL Assessment Permanent atrial fibrillation stage IV now with RVR (on warfarin/digoxin therapy) History of unsuccessful DCCV & unsuccessful cardiac ablation (2021) Chronic nonischemic compensated with LVEF at 40% History of PE/LLE DVT/Right subclavian DVT Left lower extremity cellulitis Hypertension Dyslipidemia Pre-diabetes History of CVA ENEDINA on CPAP HS Morbid obesity Plan/Recommendation Continue the following plan/recommendations (Dr. Byrd): * Echocardiogram to evaluate cardiac function * Discontinue amiodarone drip, permanent A-fib * Anticoagulation, warfarin therapy per pharmacy protocol * Rate control, initiate BB and digoxin therapy including loading dose * Replete electrolytes as necessary, K>4 and Mg>2 * Continue referral to EP for cardiac ablation evaluation * ABX therapy per primary care team * Monitor ECG changes closely and notify * Initiate BiPAP/CPAP HS * Downgrade to Tele Thank you for allowing us to participate in this patient's care. Please call if you have any questions or concerns. This medical document was created using an electronic medical record system with voice recognition software and computerized dictation system. Although this document has been carefully reviewed, there might still be some phonetic and ty pographical errors. Occasional wrong-word or ``sound-alike substitutions may have occurred due to the inherent limitations of voice recognition software. These areas are purely typographical due to imperfections of the software programs and do not reflect any compromise in the patient's medical care. Please read the chart carefully and recognize, using context, where these sub stitutions have occurred. Plan discussed with: Patient, Other NYHA Physical activity limitations: Class1(None)absent sob, (fatigue,palpitaions w activity) Date of Service: Sep 20, 2024 Billing Provider: OMAIRA MARTINEZ Cardiology Common Codes: 36510-QUMCGED INP/OBS CARE (High) OMAIRA MARTINEZ Sep 20, 2024 12:02
[2024-09-20 12:30] VITALS: BP 130/77; PULSE 142; RESP 20; TEMP 98.2; O2SAT 97
[2024-09-20] MEDS: MAGNESIUM SULFATE 1GM/100ML 100 ML IV ONE (13:07)
[2024-09-20] MEDS: CARVEDILOL 3.125 MG TAB PO ONE (13:08)
[2024-09-20] MEDS: POTASSIUM CHL 20 Meq TABLET PO ONE (14:38)
[2024-09-20] MEDS: DIGOXIN (250MCG/ML) 2 ML AMPULE IV ONE (14:43)
--- NOTE | 2024-09-20 16:34 | DVHHP2 ---
History of Present Illness Reason for Visit: Left lower extremity swelling and redness History of Present Illness 64-year-old male with a known history of diabetes mellitus type 2, hypertension, dyslipidemia, chronic DVT of the left lower extremity currently on Coumadin, atrial fibrillation with a previous history of unsuccessful cardioversion in September 2021, unsuccessful cardiac ablation at [facility] in 2021, cardiomyopathy with the EF of 40%, obesity hypoventilation syndrome/sleep apnea currently CPAP at night presented to the hospital with a left lower extremity swelling and redness found to have cellulitis of the left leg. Patient was also found to have CHF exacerbation. Patient was denies any fevers chills cough or phlegm. Cardiovascular: AFIB, CAD, CHF, HTN, hyperipidemia Endocrine: Diabetes Past Surgical History: None Smoke: No ALCOHOL: none Review of Systems Review of Systems Twelve review of system were negative except mentioned above. Allergies: Coded Allergies: NO KNOWN ALLERGIES (Unverified , 05/27/21) Medications Current Medications Medications Dose Ordered Sig/Lacie Route Start Time Stop Time Status Last Admin Dose Admin Acetaminophen/ Hydrocodone Bitart 1 tab Q4HP PRN PO 09/19/24 19:00 09/20/24 10:39 1 TAB Ondansetron HCl 4 mg Q4HP PRN IV 09/19/24 19:00 09/19/24 23:01 4 MG Docusate Sodium 100 mg BIDPRN PRN PO 09/19/24 19:00 Zinc Sulfate 220 mg DAILY PO 09/20/24 10:00 09/20/24 10:06 220 MG Ascorbic Acid 500 mg BID PO 09/19/24 22:00 09/20/24 10:06 500 MG Multivitamins 1 tab DAILY PO 09/20/24 10:00 09/20/24 10:06 1 TAB Acetaminophen 650 mg Q6HP PRN PO 09/19/24 19:00 Morphine Sulfate 2 mg Q4HPRN PRN IV 09/19/24 19:00 Nitroglycerin 0.4 mg Q5MINP PRN SL 09/19/24 19:00 Morphine Sulfate 2 mg Q30M PRN IV 09/19/24 19:00 Cefazolin Sodium 50 ml @ 100 mls/hr Q8HR IV 09/19/24 22:00 09/20/24 14:09 100 MLS/HR Warfarin Sodium RX PROTOCOL PER PHARMACY PO 09/19/24 19:00 Furosemide 20 mg BIDD IV 09/20/24 18:00 Carvedilol 3.125 mg Q12HR PO 09/20/24 22:00 Digoxin 0.125 mg DAILY PO 09/21/24 10:00 Exam Vital Signs Vital Signs Date Time Temp Pulse Resp B/P (MAP) Pulse Ox O2 Delivery O2 Flow Rate FiO2 09/20/24 14:43 72 09/20/24 13:08 126/90 09/20/24 12:30 98.2 20 97 2.0 28 98.2 09/20/24 06:00 Room Air* Exam HEENT pupils are reactive Neck is supple CV is S1-S2 regular rate and rhythm Respiratory diminished breath sound bases GI posterior bowel sound Extremity 1+ pitting edema , left lower extremity redness and tenderness 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 Labs/Xrays Labs Test 09/20/24 04:48 09/19/24 07:37 Range/Units White Blood Count 18.9 H 4.4-10.8 10^3/uL Red Blood Count 5.65 4.5-5.90 10^6/uL Hemoglobin 17.1 13.5-17.5 g/dL Hematocrit 48.7 41.0-53.0 % Mean Corpuscular Volume 86.1 80.0-100.0 fL Mean Corpuscular Hemoglobin 30.3 28.0-32.0 pg Mean Corpuscular Hemoglobin Concent 35.2 32.0-36.0 g/dL Red Cell Distribution Width 14.3 11.8-14.3 % Platelet Count 314 140-450 10^3/uL Mean Platelet Volume 7.6 6.9-10.8 fL Neutrophils (%) (Auto) 86.1 H 37.0-80.0 % Lymphocytes (%) (Auto) 5.6 L 10.0-50.0 % Monocytes (%) (Auto) 8.1 0.0-12.0 % Eosinophils (%) (Auto) 0.1 0.0-7.0 % Basophils (%) (Auto) 0.1 0.0-2.0 % Neutrophils # (Auto) 16.3 H 1.6-8.6 10 ^3/uL Lymphocytes # (Auto) 1.1 0.4-5.4 10 ^3/uL Monocytes # (Auto) 1.5 H 0-1.3 10 ^3/uL Eosinophils # (Auto) 0 0-0.8 10 ^3/uL Basophils # (Auto) 0 0-0.2 10 ^3/uL Nucleated Red Blood Cells 0.3 % Prothrombin Time 19.1 H 9.3-11.8 sec Prothrombin Time INR 1.92 H 0.9-1.15 Sodium Level 142 136-145 mmol/L Potassium Level 3.5 3.5-5.1 mmol/L Chloride Level 107 98-107 mmol/L Carbon Dioxide Level 23 20-31 mmol/L Anion Gap 12 5-15 Blood Urea Nitrogen 21 # 9-23 mg/dL Creatinine 1.32 H 0.700-1.30 mg/dL Glomerular Filtration Rate Calc 61 >90 mL/min BUN/Creatinine Ratio 15.9 10.0-20.0 Serum Glucose 152 H 74-106 mg/dL Calcium Level 9.8 8.7-10.4 mg/dL Magnesium Level 2.3 1.6-2.6 mg/dL Total Bilirubin 1.3 H 0.2-1.0 mg/dL Aspartate Amino Transferase (AST) 27 13-40 U/L Alanine Aminotransferase (ALT) 23 7-40 U/L Alkaline Phosphatase 78 46-116 U/L Total Protein 7.5 5.7-8.2 g/dL Albumin 4.6 3.2-4.8 g/dL Thyroid Stimulating Hormone (TSH) 2.64 0.55-4.78 uIU/mL Digoxin Level < 0.14 L 0.8-2 ng/mL Troponin I High Sensitivity 3 L </=54 ng/L B-Type Natriuretic Peptide 41.01 0-100 pg/mL Assessment/Plan Assessment/Plan 64-year-old male with a known history of diabetes mellitus type 2, hypertension, dyslipidemia, chronic DVT of the left lower extremity currently on Coumadin, atrial fibrillation with a previous history of unsuccessful cardioversion in September 2021, unsuccessful cardiac ablation at [facility] in 2021, cardiomyopathy with the EF of 40%, obesity hypoventilation syndrome/sleep apnea currently CPAP at night presented to the hospital with a left lower extremity swelling and redness found to have plan 1. Left lower extremity cellulitis 2. Acute CHF exacerbation with systolic dysfunction 3. Cardiomyopathy with the EF of 40% 4. History of left lower extremity DVT currently on Coumadin 6. Hypotension 7. Obesity hypoventilation syndrome/sleep apnea currently on CPAP at nine 8. Morbid obesity class three 9. Prediabetes 10. Acute hypoxic respiratory failure secondary to acute CHF exacerbation, we will assess for home oxygen requirement upon discharge -continue IV diuretics, continue IV antibiotics, discharge plan. Plan discussed with: Patient, Spouse My Orders Orders - IVY PLATT MD Procedure Category Date Status Time Admit ADMIT 09/19/24 Transmitted 18:58 Code Status CODE 09/19/24 Transmitted 18:58 2 Gm Sodium Diet DIET 09/20/24 Transmitted Breakfast Hydrocodone-Acet PHA 09/19/24 In Process 5/325mg Tab ([place] 19:00 Ondansetron Hcl PHA 09/19/24 In Process (Zofran) 19:00 Docusate Sodium PHA 09/19/24 In Process Capsule (Colace 19:00 Zinc Sulfate PHA 09/20/24 In Process 10:00 Ascorbic Acid Tablet PHA 09/19/24 In Process (Vitamin C Tablet) 22:00 Multiple Vitamin PHA 09/20/24 In Process Tablet (Mvi Tab) 10:00 Pt Request For Service PT 09/19/24 Logged 18:58 Condition: Fair BASSEM 09/19/24 In Process 18:58 Acetaminophen Tablet PHA 09/19/24 In Process (Tylenol Tablet) 19:00 Morphine Sulfate PHA 09/19/24 In Process Injection 19:00 Nitroglycerin PHA 09/19/24 In Process Sublingual (Ntrostat 19:00 Morphine Sulfate PHA 09/19/24 In Process Injection 19:00 Stat Ekg For Chest BASSEM 09/19/24 In Process Pain 18:58 Notify Of Changes BASSEM 09/19/24 In Process From Base 18:58 Display Fabrication Supervisor For BASSEM 09/19/24 In Process 24 Hours 18:58 Emergency Dysrhythmia BASSEM 09/19/24 In Process Protocol 18:58 Rhythm Strips Once BASSEM 09/19/24 In Process Every Shift 18:58 Oxygen By Nasal RT 09/19/24 Transmitted Cannula 18:58 Cefazolin 1gm/50ml PHA 09/19/24 In Process (Ancef) 22:00 * Cardiology Consult CONS 09/19/24 Transmitted 18:58 * Infectious [place]- Dr. CONS 09/19/24 Transmitted Mallad 18:58 Warfarin Per Rx PHA 09/19/24 In Process Protocol (Coumadin 19:00 Coumadin Per Pharmacy BASSEM 09/19/24 In Process Protcol 20:43 Complete Blood Count LAB 09/21/24 Verified 04:00 Creatinine LAB 09/21/24 Verified 04:00 PTPTT LAB 09/21/24 Verified 04:00 Warfarin Sodium PHA 09/20/24 In Process (Coumadin) 17:00 Date of Service: Sep 20, 2024 Billing Provider: IVY PLATT MD Common Visit Codes: NOT BILLABLE IVY PLATT MD Sep 20, 2024 16:34
[2024-09-20] MEDS: WARFARIN SODIUM 2.5 MG TAB PO ONE (17:00)
[2024-09-20] MEDS: FUROSEMIDE 40 MG/4 ML VIAL IV SCH (18:00)
[2024-09-20 20:00] VITALS: PULSE 112; RESP 16; O2SAT 95
--- NOTE | 2024-09-20 21:07 | DVHINCON2 ---
Date of service: Sep 20, [address] Platt Reason for Consultation Left leg cellulitis History of Present Illness Patient is a 64-year-old male presents to the hospital with a left lower extremity swelling and redness found to have cellulitis of the left leg. He denies any fevers, chills, cough or phlegm. Patient reports he developed symptoms since Wednesday. Patient's past medical history is significant for chronic DVT of the left lower extremity currently on Coumadin, atrial fibrillation with a previous history of unsuccessful cardioversion in September 2021, unsuccessful cardiac ablation at [place] in 2021, cardiomyopathy with the EF of 40%, obesity hypoventilation syndrome/sleep apnea currently CPAP at night. Patient was also found to have CHF exacerbation. Past Medical History Patient's past medical history is significant for AFIB, CAD, CHF, HTN, hyperlipidemia and diabetes Past Surgical History Past Surgical History: None Family History: Diabetes mellitus G8 MOTHER G8 FATHER G8 BROTHER FH: congestive heart failure G8 FATHER Family history: Diabetes mellitus G8 MOTHER G8 FATHER G8 BROTHER Social History Smoke: No ALCOHOL: none Allergies: Coded Allergies: NO KNOWN ALLERGIES (Unverified , 05/27/21) Home Meds Active Scripts Flecainide Acetate (TAMBOCOR TABLET) 50 Mg Tb, 100 MG PO Q12HR for 60 Days, #240 TAB Prov:IVY PLATT MD 09/21/24 Digoxin (Lanoxin) 125 Mcg Tab, 0.125 MG PO DAILY, #30 TAB Prov:IVY PLATT MD 09/21/24 Cephalexin Monohydrate (Cephalexin) 500 Mg Cap, 1 CAP PO TID for 7 Days, #21 CAP Prov:IVY PLATT MD 09/21/24 Enoxaparin Sodium (Lovenox) 150 Mg/1 Ml Ij, 140 MG SC Q12HR, #10 INJ Prov:CHIQUITA CABAN MD 08/27/21 Warfarin Sodium (Warfarin Sodium) 7.5 Mg Tab, 7.5 MG PO DAILY, #30 TAB Prov:CHIQUITA CABAN MD 09/20/20 Reported Medications Semaglutide (Ozempic) 2 Mg/3 Ml Inj, 2 MG SC weekly, INJ 09/20/24 Dulaglutide (Trulicity) 1.5 Mg/0.5 Ml Inj, 1.5 MG SC QWEEKLY, INJ 08/27/21 Digoxin (Digoxin) 125 Mcg Tab, 125 MCG PO DAILY 08/25/21 Docusate Sodium (Docusate Sodium) 100 Mg Tab, 100 MG PO BIDP PRN for FOR CONSTIPATION 08/22/21 Furosemide (Furosemide) 40 Mg Tab, 40 MG PO DAILY 08/22/21 Carvedilol (Carvedilol) 3.125 Mg Tab, 3.125 MG PO BID for 30 Days, MG 08/22/21 Lisinopril (Lisinopril) 2.5 Mg Tab, 2.5 MG PO DAILY 08/22/21 Atorvastatin Calcium (Lipitor) 20 Mg Tab, 1 TAB PO DAILY 09/06/20 Metformin Hydrochloride (Metformin Hcl) 500 Mg Tab, 500 MG PO DAILY 09/06/20 Current Medications Current Medications Medications (Trade) Dose Ordered Sig/Lacie Route PRN Reason Start Time Stop Time Status Last Admin Zinc Sulfate 220 mg DAILY PO 09/20/24 10:00 09/20/24 10:06 Ascorbic Acid (Vitamin C Tablet) 500 mg BID PO 09/19/24 22:00 09/20/24 10:06 Multivitamins (Mvi Tab) 1 tab DAILY PO 09/20/24 10:00 09/20/24 10:06 Cefazolin Sodium 50 ml @ 100 mls/hr Q8HR IV 09/19/24 22:00 09/20/24 14:09 Furosemide (Lasix Injection) 20 mg BIDD IV 09/20/24 18:00 09/20/24 18:00 Carvedilol (Coreg Tablet) 3.125 mg Q12HR PO 09/20/24 22:00 Digoxin (Lanoxin Tablet) 0.125 mg DAILY PO 09/21/24 10:00 Review of Systems General: No Fever, chills, night sweats or weight loss HEENT: No Sinus pain, headache, vision changes or sore throat Respiratory: No Cough, dyspnea, sputum production Cardiovascular: No Chest pain, palpitations or leg edema Gastrointestinal: No Nausea, vomiting, diarrhea, abdominal pain Genitourinary: No Dysuria, urinary frequency, hematuria, pelvic pain Skin: No Rashes, ulcers, abscesses, redness or swelling Musculoskeletal: Positive for erythema Neurologic: No Altered mental status, headaches or focal neurological deficits Psychiatric: No Anxiety, depression or confusion Vital Signs Vital Signs Date Time Temp Pulse Resp B/P (MAP) Pulse Ox O2 Delivery O2 Flow Rate FiO2 09/20/24 20:00 112 09/20/24 20:00 16 95 Room Air* 0 21 09/20/24 20:00 98.8 132/103 (113) 98.8 Physical Exam General Appearance: Cooperative. Well developed. Morbidly obese. Mild acute distress Head Exam: Normal inspection Neck Exam: Normal inspection. Non-tender. Normal alignment Pulmonary/Respiratory: Chest non-tender. Diminished bilateral breath sounds Cardiovascular/Chest: Irregularly irregular rate and rhythm. AFib with uncontrolled rate. No murmurs. No JVD. Abdominal Exam: Normal bowel sounds. Soft. Nontender. No hepatospenomegaly. No masses Ankle Exam: Left ankle edema Lower extremities: Left lower extremity nonpitting edema/erythema Neuro/Mental Status: A&O x4. Coherent Thoughts/Psych: Normal thought pattern. Appropriate mood and affect. Good judgement and insight Appearance: Mild acute distress Skin Exam: Erythema to left lower extremity Labs/Diagnostic Data Labs Test 09/20/24 04:48 09/19/24 07:37 Range/Units White Blood Count 18.9 H 4.4-10.8 10^3/uL Red Blood Count 5.65 4.5-5.90 10^6/uL Hemoglobin 17.1 13.5-17.5 g/dL Hematocrit 48.7 41.0-53.0 % Mean Corpuscular Volume 86.1 80.0-100.0 fL Mean Corpuscular Hemoglobin 30.3 28.0-32.0 pg Mean Corpuscular Hemoglobin Concent 35.2 32.0-36.0 g/dL Red Cell Distribution Width 14.3 11.8-14.3 % Platelet Count 314 140-450 10^3/uL Mean Platelet Volume 7.6 6.9-10.8 fL Neutrophils (%) (Auto) 86.1 H 37.0-80.0 % Lymphocytes (%) (Auto) 5.6 L 10.0-50.0 % Monocytes (%) (Auto) 8.1 0.0-12.0 % Eosinophils (%) (Auto) 0.1 0.0-7.0 % Basophils (%) (Auto) 0.1 0.0-2.0 % Neutrophils # (Auto) 16.3 H 1.6-8.6 10 ^3/uL Lymphocytes # (Auto) 1.1 0.4-5.4 10 ^3/uL Monocytes # (Auto) 1.5 H 0-1.3 10 ^3/uL Eosinophils # (Auto) 0 0-0.8 10 ^3/uL Basophils # (Auto) 0 0-0.2 10 ^3/uL Nucleated Red Blood Cells 0.3 % Prothrombin Time 19.1 H 9.3-11.8 sec Prothrombin Time INR 1.92 H 0.9-1.15 Sodium Level 142 136-145 mmol/L Potassium Level 3.5 3.5-5.1 mmol/L Chloride Level 107 98-107 mmol/L Carbon Dioxide Level 23 20-31 mmol/L Anion Gap 12 5-15 Blood Urea Nitrogen 21 # 9-23 mg/dL Creatinine 1.32 H 0.700-1.30 mg/dL Glomerular Filtration Rate Calc 61 >90 mL/min BUN/Creatinine Ratio 15.9 10.0-20.0 Serum Glucose 152 H 74-106 mg/dL Calcium Level 9.8 8.7-10.4 mg/dL Magnesium Level 2.3 1.6-2.6 mg/dL Total Bilirubin 1.3 H 0.2-1.0 mg/dL Aspartate Amino Transferase (AST) 27 13-40 U/L Alanine Aminotransferase (ALT) 23 7-40 U/L Alkaline Phosphatase 78 46-116 U/L Total Protein 7.5 5.7-8.2 g/dL Albumin 4.6 3.2-4.8 g/dL Thyroid Stimulating Hormone (TSH) 2.64 0.55-4.78 uIU/mL Digoxin Level < 0.14 L 0.8-2 ng/mL Troponin I High Sensitivity 3 L </=54 ng/L B-Type Natriuretic Peptide 41.01 0-100 pg/mL Assessment Patient is a 64-year-old male presents to the hospital with: Left lower extremity cellulitis Acute CHF exacerbation with systolic dysfunction Cardiomyopathy with the EF of 40% History of left lower extremity DVT currently on Coumadin Hypotension Obesity hypoventilation syndrome Morbid obesity class three Prediabetes Acute hypoxic respiratory failure secondary to acute CHF exacerbation Recommendations: -Continue Cefazolin IV -Continue Lasix -Elevate legs -Cardiology is on board Antibiotic status: Cefazolin Sodium [Started on 09/19] WBC trending down, we will monitor Creatinine elevated 09/19, Extremity venous study showed No left lower extremity deep venous thrombosis. 09/19, Chest x-ray showed Small left pleural effusion. Thank you for consult. Plan discussed with: ABDIRASHID Cabrera MD Sep 20, 2024 21:07
[2024-09-20 21:56] VITALS: BP 119/71; PULSE 105; PULSE 78; RESP 20; TEMP 98; O2SAT 96
[2024-09-20] MEDS: CARVEDILOL 3.125 MG TAB PO SCH (21:58)
[2024-09-20] MEDS ORDERED: SEMA2INJ3 SC (22:40)
[2024-09-20 23:12] VITALS: PULSE 100; O2SAT 98
[2024-09-21] VITALS (10 sets, daily range): BP systolic 106–148; BP diastolic 71–89; PULSE 78–97; RESP 18–20; TEMP 97.8–98.5; O2SAT 81–100
[2024-09-21 06:44] LABS: Basophils # (auto) 0 10 ^3/uL (0-0.2); Basophils % (auto) 0.3 % (0.0-2.0); Eosinophils # (auto) 0.1 10 ^3/uL (0-0.8); Eosinophils % (auto) 0.6 % (0.0-7.0); Hemoglobin 16.7 g/dL (13.5-17.5); Lymphocytes # (auto) 2.7 10 ^3/uL (0.4-5.4); Lymphocytes % (auto) 18.3 % (10.0-50.0); Mean Corpuscular Hemoglobin 29.7 pg (28.0-32.0); Mean Corpuscular Volume 87.2 fL (80.0-100.0); Monocytes # (auto) 1.1 10 ^3/uL (0-1.3); Monocytes % (auto) 7.5 % (0.0-12.0); Neutrophils # (auto) 10.8 10 ^3/uL (1.6-8.6); Neutrophils % (auto) 73.3 % (37.0-80.0); Platelet Count (auto) 351 10^3/uL (140-450); Red Blood Cells 5.62 10^6/uL (4.5-5.90); Red Cell Distribution Width 14.1 % (11.8-14.3); White Blood Cell 14.7 10^3/uL (4.4-10.8)
[2024-09-21 07:10] LABS: Partial Thromboplastin Time 33.9 SEC (24.5-34.5); Prothrombin Time 19.8 sec (9.3-11.8)
[2024-09-21 07:37] LABS: Urine Bacteria None Seen /hpf (None Seen)
[2024-09-21 07:56] LABS: Urine Blood Negative /uL (Negative); Urine Clarity Clear (Clear); Urine Color Colorless (Yellow); Urine Hyaline Cast FEW /lpf (0 - 2); Urine Protein, UAD Negative (Negative); Urine Specific Gravity 1.008 (1.001-1.035); Urine Squamous Epithelial Cell None Seen /hpf (<5); Urine Urobilinogen Normal (Negative); Urine WBC < 1 /HPF (0-3)
--- NOTE | 2024-09-21 09:57 | DVHPN2 ---
Progress Note - Dictate Date Seen: Sep 21, 2024 Medical Necessity Reason Pt with a Central, PICC or Fol: No Subjective Redness has been improved. No new acute complaints noted at this time. vital signs Vital Sign Date Time Temp Pulse Resp B/P (MAP) Pulse Ox O2 Delivery O2 Flow Rate FiO2 09/21/24 05:38 94 Nasal Cannula 2.0 09/21/24 05:38 28 09/21/24 05:34 106/71 09/21/24 05:00 98.5 85 20 98.5 Total Intake and Output 09/20/24 09/20/24 09/21/24 15:00 23:00 07:00 Intake Total 131.31 ml 50 ml 290 ml Output Total 300 ml Balance 131.31 ml 50 ml -10 ml medications Current Medications Medications Dose Ordered Sig/Lacie Route Start Time Stop Time Status Last Admin Dose Admin Acetaminophen/ Hydrocodone Bitart 1 tab Q4HP PRN PO 09/19/24 19:00 09/21/24 08:26 1 TAB Ondansetron HCl 4 mg Q4HP PRN IV 09/19/24 19:00 09/19/24 23:01 4 MG Docusate Sodium 100 mg BIDPRN PRN PO 09/19/24 19:00 Zinc Sulfate 220 mg DAILY PO 09/20/24 10:00 09/20/24 10:06 220 MG Ascorbic Acid 500 mg BID PO 09/19/24 22:00 09/20/24 21:57 500 MG Multivitamins 1 tab DAILY PO 09/20/24 10:00 09/20/24 10:06 1 TAB Acetaminophen 650 mg Q6HP PRN PO 09/19/24 19:00 Morphine Sulfate 2 mg Q4HPRN PRN IV 09/19/24 19:00 Nitroglycerin 0.4 mg Q5MINP PRN SL 09/19/24 19:00 Morphine Sulfate 2 mg Q30M PRN IV 09/19/24 19:00 Cefazolin Sodium 50 ml @ 100 mls/hr Q8HR IV 09/19/24 22:00 09/21/24 05:33 100 MLS/HR Warfarin Sodium RX PROTOCOL PER PHARMACY PO 09/19/24 19:00 Furosemide 20 mg BIDD IV 09/20/24 18:00 09/21/24 05:34 20 MG Carvedilol 3.125 mg Q12HR PO 09/20/24 22:00 09/20/24 21:58 3.125 MG Digoxin 0.125 mg DAILY PO 09/21/24 10:00 objective General Appearance: Cooperative. Well developed. Morbidly obese. Mild acute distress Head Exam: Normal inspection Neck Exam: Normal inspection. Non-tender. Normal alignment Pulmonary/Respiratory: Chest non-tender. Diminished bilateral breath sounds Cardiovascular/Chest: Irregularly irregular rate and rhythm. AFib with uncontrolled rate. No murmurs. No JVD. Abdominal Exam: Normal bowel sounds. Soft. Nontender. No hepatospenomegaly. No masses Ankle Exam: Left ankle edema Lower extremities: Left lower extremity nonpitting edema/erythema Neuro/Mental Status: A&O x4. Coherent Thoughts/Psych: Normal thought pattern. Appropriate mood and affect. Good judgement and insight Appearance: Mild acute distress Skin Exam: Erythema to left lower extremity laboratory and microbiology Laboratory Tests 09/21/24 06:21 09/20/24 04:48 Test 09/20/24 04:48 Range/Units Serum Glucose 152 H 74-106 mg/dL Assessment/Plan Patient is a 64-year-old male presents to the hospital with: Left lower extremity cellulitis Acute CHF exacerbation with systolic dysfunction Cardiomyopathy with the EF of 40% History of left lower extremity DVT currently on Coumadin Hypotension Obesity hypoventilation syndrome Morbid obesity class three Prediabetes Acute hypoxic respiratory failure secondary to acute CHF exacerbation Recommendations: -Continue Cefazolin IV -Continue Lasix -Elevate legs -Cardiology is on board OK to discharge with oral Keflex for 5 days Follow up with PCP and repeat CBC in 1 week. Antibiotic status: Cefazolin Sodium [Started on 09/19] WBC trending down, we will monitor Creatinine elevated 09/19, Extremity venous study showed No left lower extremity deep venous thrombosis. 09/19, Chest x-ray showed Small left pleural effusion. Thank you for consult. Plan discussed with: Other ABDIRASHID KING MD Sep 21, 2024 09:57
[2024-09-21] MEDS: DIGOXIN 0.125 MG TAB PO SCH (10:18)
--- NOTE | 2024-09-21 10:32 | DVHSR ---
APPROVED REPORT EXAM: LIMITED Two-dimensional and M-mode echocardiogram with Doppler and color Doppler. Blood Pressure: 139/102 mmHg INDICATION Congestive heart failure RISK FACTORS Obesity: Height: 5'10, Weight: 315 DIMENSIONS LVDd4.2 (3.8-5.7cm)LA (2D) (1.9-4.0cm)Aortic Root3.6 (2.0-3.7cm) LVDs3.3 (2.5-4.0cm)LA (MM) (1.9-4.0cm)Aortic Cusp Exc1.6 (1.5-2.0cm) EF (%) 42.0 (55-70%)Rt. Atrium (1.9-4.0cm)Asc. Aorta3.6 cm IVSd1.4 (0.7-1.1cm)RV (D) (1.8-2.4cm) PWd1.0 (0.7-1.1cm) Mitral Valve MitralMitral Stenosis E wave0.87m/sMV Mean GR.2mmHg A wavem/sMV Peak GR.3mmHg E/A ratio0.02D MVAcm2 Aortic Valve Aortic ValveAortic Stenosis V10.94m/Rafael Mean GR.4mmHg V21.27m/Rafael Peak GR.7mmHg LVOT Diameter2.0 (1.8-2.4cm)Doppler AVA2.32cm2 Pulmonic Valve V20.75m/s Tricuspid Valve TR Velocity1.75m/s [id number] Other Information Quality : Technically LimitedRhythm : Technically limited study due to patient position.body habitus. Conclusion Technically good study. Underlying atrial fibrillation. Left atrial enlargement. Aortic root enlargement. Valves appear to be structurally normal. EF of 55% with normal RV function. Irregular contractility given atrial fibrillation. Mild tricuspid regurgitation. No pericardial effusion masses or vegetations discernible
--- NOTE | 2024-09-21 11:25 | DVHPN2 ---
Consult Progress Note Date Seen: Sep 21, 2024 Subjective Review of Systems: CVS:Normal, RESPIRATORY:Normal, NEURO:Normal Objective vital signs Vital Sign Date Time Temp Pulse Resp B/P (MAP) Pulse Ox O2 Delivery O2 Flow Rate FiO2 09/21/24 10:19 97 148/89 09/21/24 05:38 94 Nasal Cannula 2.0 09/21/24 05:38 28 09/21/24 05:00 98.5 20 98.5 Total Intake and Output 09/20/24 09/20/24 09/21/24 15:00 23:00 07:00 Intake Total 131.31 ml 50 ml 290 ml Output Total 300 ml Balance 131.31 ml 50 ml -10 ml medications Current Medications Medications Dose Ordered Sig/Lacie Route Start Time Stop Time Status Last Admin Dose Admin Acetaminophen/ Hydrocodone Bitart 1 tab Q4HP PRN PO 09/19/24 19:00 09/21/24 08:26 1 TAB Ondansetron HCl 4 mg Q4HP PRN IV 09/19/24 19:00 09/19/24 23:01 4 MG Docusate Sodium 100 mg BIDPRN PRN PO 09/19/24 19:00 Zinc Sulfate 220 mg DAILY PO 09/20/24 10:00 09/21/24 10:19 220 MG Ascorbic Acid 500 mg BID PO 09/19/24 22:00 09/21/24 10:19 500 MG Multivitamins 1 tab DAILY PO 09/20/24 10:00 09/21/24 10:19 1 TAB Acetaminophen 650 mg Q6HP PRN PO 09/19/24 19:00 Morphine Sulfate 2 mg Q4HPRN PRN IV 09/19/24 19:00 Nitroglycerin 0.4 mg Q5MINP PRN SL 09/19/24 19:00 Morphine Sulfate 2 mg Q30M PRN IV 09/19/24 19:00 Cefazolin Sodium 50 ml @ 100 mls/hr Q8HR IV 09/19/24 22:00 09/21/24 05:33 100 MLS/HR Warfarin Sodium RX PROTOCOL PER PHARMACY PO 09/19/24 19:00 Furosemide 20 mg BIDD IV 09/20/24 18:00 09/21/24 05:34 20 MG Carvedilol 3.125 mg Q12HR PO 09/20/24 22:00 09/21/24 10:19 3.125 MG Digoxin 0.125 mg DAILY PO 09/21/24 10:00 09/21/24 10:18 0.125 MG Examination: LUNGS:Normal, CVS:Normal (Transitioned into a NSR), MSK:Abnormal (LLE erythema and edema improving), NEURO:Normal laboratory and microbiology Laboratory Tests 09/21/24 06:21 09/20/24 04:48 Test 09/20/24 04:48 Range/Units Serum Glucose 152 H 74-106 mg/dL Problem List/Assessment/Plan Problem List/Assessment/Plan Paroxysmal atrial fibrillation stage IV now with RVR, now NSR (on warfarin therapy) History of unsuccessful DCCV & unsuccessful cardiac ablation (2021) Chronic nonischemic compensated with LVEF at 40% History of PE/LLE DVT/Right subclavian DVT Left lower extremity cellulitis Hypertension Dyslipidemia Pre-diabetes History of CVA ENEDINA on CPAP HS Morbid obesity Plan/Recommendation (Dr. Byrd) * Transthoracic echocardiogram revealed EF 55% * Anticoagulation, warfarin therapy per pharmacy protocol * Initiate Flecainide therapy BID * Rate control, continue carvedilol * Replete electrolytes as necessary, K>4 and Mg>2 * BiPAP/CPAP HS Strongly recommend for patient to continue warfarin, carvedilol and flecainide therapy in addition to follow-up with Dr. Byrd as scheduled. There is no further cardiac work-up indicated at this time. Kindly call if in need to re- consult. Thank you for allowing us to participate in this patient's care. This medical document was created using an electronic medical record system with voice recognition software and computerized dictation system. Although this document has been carefully reviewed, there might still be some phonetic and typographical errors. Occasional wrong-word or ``sound-alike substitutions may have occurred due to the inherent limitations of voice recognition software. These areas are purely typographical due to imperfections of the software programs and do not reflect any compromise in the patient's medical care. Please read the chart carefully and recognize, using context, where these substitutions have occurred. Plan discussed with: Patient, Other Date of Service: Sep 21, 2024 Billing Provider: OMAIRA MARTINEZ Cardiology Common Codes: [id number] INP/OBS CARE(Mod) OMAIRA MARTINEZ Sep 21, 2024 11:25
[2024-09-21 13:09] LABS: Potassium 4.2 mmol/L (3.5-5.1); Sodium 143 mmol/L (136-145)
[2024-09-21 13:10] LABS: Anion Gap 10 (5-15); Calcium 9.3 mg/dL (8.7-10.4); Carbon Dioxide 23 mmol/L (20-31)
[2024-09-21 13:15] LABS: BUN/Creatinine Ratio 15.6 (10.0-20.0); Blood Urea Nitrogen 21 mg/dL (9-23)
[2024-09-21 13:22] LABS: Chloride 110 mmol/L (98-107); Glucose 120 mg/dL (74-106)
[2024-09-21] MEDS: FLECAINIDE ACETATE 50 MG TAB PO ONE (15:00)
[2024-09-21] MEDS ORDERED: CEPH500C PO (16:33)
[2024-09-21] MEDS ORDERED: FLE50T PO (16:35)
[2024-09-21] MEDS ORDERED: DIGO1TAB48 PO (16:35)
--- NOTE | 2024-09-21 16:39 | DVHDS2 ---
Discharge Summary Date of Admission Sep 19, 2024 at 18:58 Date of Discharge: Sep 21, 2024 Labs/Diagnostic Data: Laboratory Results Test 09/21/24 07:15 09/21/24 06:21 09/20/24 04:48 09/19/24 07:37 Urine Color Colorless (Yellow) Urine Clarity Clear (Clear) Urine pH 5.0 (5.0-9.0) Urine Specific [place] 1.008 (1.001-1.035) Urine Protein Negative (Negative) Urine Ketones Negative (Negative) Urine Blood Negative /uL (Negative) Urine Nitrite Negative (Negative) Urine Bilirubin Negative (Negative) Urine Urobilinogen Normal mg/dL (Negative) Urine Leukocyte Esterase Negative /uL (Negative) Urine RBC <1 /hpf (0 - 3) Urine Microscopic WBC < 1 /HPF (0-3) Urine Squamous Epithelial Cells None seen /hpf (<5) Urine Bacteria None seen /hpf (None Seen) Urine Hyaline Casts Few /lpf (0 - 2) Urine Glucose Normal mg/dL (Normal) White Blood Count 14.7 10^3/uL (4.4-10.8) Red Blood Count 5.62 10^6/uL (4.5-5.90) Hemoglobin 16.7 g/dL (13.5-17.5) Hematocrit 49.0 % (41.0-53.0) Mean Corpuscular Volume 87.2 fL (80.0-100.0) Mean Corpuscular Hemoglobin 29.7 pg (28.0-32.0) Mean Corpuscular Hemoglobin Concent 34.0 g/dL (32.0-36.0) Red Cell Distribution Width 14.1 % (11.8-14.3) Platelet Count 351 10^3/uL (140-450) Mean Platelet Volume 7.6 fL (6.9-10.8) Neutrophils (%) (Auto) 73.3 % (37.0-80.0) Lymphocytes (%) (Auto) 18.3 % (10.0-50.0) Monocytes (%) (Auto) 7.5 % (0.0-12.0) Eosinophils (%) (Auto) 0.6 % (0.0-7.0) Basophils (%) (Auto) 0.3 % (0.0-2.0) Neutrophils # (Auto) 10.8 10 ^3/uL (1.6-8.6) Lymphocytes # (Auto) 2.7 10 ^3/uL (0.4-5.4) Monocytes # (Auto) 1.1 10 ^3/uL (0-1.3) Eosinophils # (Auto) 0.1 10 ^3/uL (0-0.8) Basophils # (Auto) 0 10 ^3/uL (0-0.2) Nucleated Red Blood Cells 0.0 % Prothrombin Time 19.8 sec (9.3-11.8) Prothrombin Time INR 2.00 (0.9-1.15) Activated Partial Thromboplast Time 33.9 SEC (24.5-34.5) Sodium Level 143 mmol/L (136-145) Potassium Level 4.2 mmol/L (3.5-5.1) Chloride Level 110 mmol/L (98-107) Carbon Dioxide Level 23 mmol/L (20-31) Anion Gap 10 (5-15) Blood Urea Nitrogen 21 mg/dL (9-23) Creatinine 1.35 mg/dL (0.700-1.30) Glomerular Filtration Rate Calc 59 mL/min (>90) BUN/Creatinine Ratio 15.6 (10.0-20.0) Serum Glucose 120 mg/dL (74-106) Calcium Level 9.3 mg/dL (8.7-10.4) Magnesium Level 2.3 mg/dL (1.6-2.6) Total Bilirubin 1.3 mg/dL (0.2-1.0) Aspartate Amino Transferase (AST) 27 U/L (13-40) Alanine Aminotransferase (ALT) 23 U/L (7-40) Alkaline Phosphatase 78 U/L (46-116) Total Protein 7.5 g/dL (5.7-8.2) Albumin 4.6 g/dL (3.2-4.8) Thyroid Stimulating Hormone (TSH) 2.64 uIU/mL (0.55-4.78) Digoxin Level < 0.14 ng/mL (0.8-2) Troponin I High Sensitivity 3 ng/L (</=54) B-Type Natriuretic Peptide 41.01 pg/mL (0-100) Other Laboratory Tests 09/21/24 06:21 Brief Hx & Hospital Course: 64-year-old male with a known history of diabetes mellitus type 2, hypertension, dyslipidemia, chronic DVT of the left lower extremity currently on Coumadin, atrial fibrillation with a previous history of unsuccessful cardioversion in September 2021, unsuccessful cardiac ablation at [facility] in 2021, cardiomyopathy with the EF of 40%, obesity hypoventilation syndrome/sleep apnea currently CPAP at night presented to the hospital with a left lower extremity swelling and redness found to have left lower extremity cellulitis and acute yesterday was elevation with systolic dysfunction. Patient was seen by Cardiology and recommended to be on flecainide as well as in a digoxin. Patient was given IV antibiotics infectious Disease cleared the patient to be discharged. Patient being discharged under stable condition. Condition at Discharge: Stable Final Diagnosis/Problems List 64-year-old male with a known history of diabetes mellitus type 2, hypertension, dyslipidemia, chronic DVT of the left lower extremity currently on Coumadin, atrial fibrillation with a previous history of unsuccessful cardioversion in September 2021, unsuccessful cardiac ablation at [facility] in 2021, cardiomyopathy with the EF of 40%, obesity hypoventilation syndrome/sleep apnea currently CPAP at night presented to the hospital with a left lower extremity swelling and redness found to have plan 1. Left lower extremity cellulitis 2. Acute CHF exacerbation with systolic dysfunction 3. Cardiomyopathy with the EF of 40% 4. History of left lower extremity DVT currently on Coumadin 6. Hypotension 7. Obesity hypoventilation syndrome/sleep apnea currently on CPAP at nine 8. Morbid obesity class three 9. Prediabetes 10. Acute hypoxic respiratory failure secondary to acute CHF exacerbation, Discharge Disposition: Home with [facility] Services [facility] Discharge Will this Physician continue t: No Discharge Instruct/Medications Diet: Consistent carbohydrate, Cardiac 2g Na,low cholest (2 gm sodium, low cholesterol) Discharge Statement: "Patient was advised to return to the ER or call 911 if any headaches, dizziness, shortness of breath, chest pain, abdominal pain, bleeding, fevers, or worsening of medical condition. Patient was counseled about treatment plan, medications, possible side effects, patientverbalized understanding. All questions were answered to the best of my ability. This discharge took greater then 30 minutes in planning, reviewing documentation, counseling the patient, and discussing with other team members." ASSESSMENT ASSESSMENT Assessment Date of Service: Sep 21, 2024 Billing Provider: IVY PLATT MD Common Visit Codes: NOT BILLABLE IVY PLATT MD Sep 21, 2024 16:39
[2024-09-21] MEDS ORDERED: WARFARIN SODIUM 2.5 MG TAB PO ONE (17:00)
[2024-09-21] MEDS ORDERED: FLECAINIDE ACETATE 50 MG TAB PO SCH (22:00)
== END 2024-09-21 18:30 | disposition home health service (06) | DRG 871 ==
LOC: ER 06:45 → OVERFLOW 18:58 → TELE-EAST 09-20 21:08
PROVIDERS: ADMIT Internal Medicine; ATTEND Internal Medicine
PROC: 5A09357 Assistance with Respiratory Ventilation, Less than 24 Consecutive Hours, Continuous Positive Airway Pressure (ICD-10-PCS; principal; 2024-09-20)
DX: A41.9 Sepsis, unspecified organism (principal); I50.23 Acute on chronic systolic (congestive) heart failure; J96.01 Acute respiratory failure with hypoxia; L03.116 Cellulitis of left lower limb; E66.2 Morbid (severe) obesity with alveolar hypoventilation; Z68.41 Body mass index [BMI] 40.0-44.9, adult; I48.21 Permanent atrial fibrillation; I42.9 Cardiomyopathy, unspecified; I11.0 Hypertensive heart disease with heart failure; I95.9 Hypotension, unspecified; E66.813 Obesity, class 3; E11.65 Type 2 diabetes mellitus with hyperglycemia; E78.5 Hyperlipidemia, unspecified; I25.10 Atherosclerotic heart disease of native coronary artery without angina pectoris; J44.9 Chronic obstructive pulmonary disease, unspecified; Z86.718 Personal history of other venous thrombosis and embolism; Z79.01 Long term (current) use of anticoagulants; Z82.49 Family history of ischemic heart disease and other diseases of the circulatory system; Z83.3 Family history of diabetes mellitus; Z86.711 Personal history of pulmonary embolism; Z86.73 Personal history of transient ischemic attack (TIA), and cerebral infarction without residual deficits; Z79.899 Other long term (current) drug therapy; Z79.84 Long term (current) use of oral hypoglycemic drugs
CPT/HCPCS: 36415; 71045; 80048; 80053; 80162; 81001; 82565; 83735; 83880; 84443; 84484; 85025; 85610; 85730; 87040; 87077; 87186; 93005; 93306; 93971; 94660; 96365; 96367; 96375; 96376; 97163; 99291; 99292; G0378; J2405; J2543; J3490